=== PATIENT | female | born 2000 | race Caucasian/White ===

== ENCOUNTER 2022-06-29 10:12 | Emergency (ER) | payer MEDICAID, SELFPAY ==
[2022-06-29 10:29] VITALS: BP 111/72; PULSE 76; RESP 16; TEMP 35.9; O2SAT 99; BMI 28.5
[2022-06-29 11:16] VITALS: BP 100/73; PULSE 76; RESP 18; O2SAT 99
--- NOTE | 2022-06-29 11:16 | CRLHL7_ITS ---
For Patients: As a result of the Century Cures Act, medical imaging exams and procedure reports are released immediately into your electronic medical record. You may view this report before your referring provider. If you have questions, please contact your health care provider. INDICATION: First trimester bleeding. TECHNIQUE: Ultrasound OB pelvis transvaginal. Real-time snyder-scale imaging of the pelvis was performed. COMPARISON: None. FINDINGS: There is an intrauterine gestational sac with a mean sac diameter of 7 mm which corresponds to a 5 week 2 day gestational age. Normal appearing yolk sac. Fetus is not yet visualized. There is no sign of perigestational hemorrhage. The ovaries are of normal size. There are no suspicious fluid collections noted in the cul-de-sac. IMPRESSION: Early intrauterine measuring less than 6 weeks. It is too early to determine viability. No hemorrhage or other abnormality evident. Dictated by Tom Ramos MD @ 06/29/2022 1:13:59 PM (Electronically Signed)
--- NOTE | 2022-06-29 11:17 | ED.GENADULT ---
HPI - General Adult General Chief complaint: OB/Uterine Contractions Stated complaint: 6 weeks , complications Time Seen by Provider: 06/29/22 11:05 History of Present Illness HPI narrative: Patient is a 22-year-old female who through an senior power plant operator reports that she had a in the past, this is her next , therefore a G1 para 0. She is about 6 weeks bites v-shaped estimated gestational age. Does not know her blood type. Does not speak Malay. Through an senior power plant operator reports she has had heavy vaginal bleeding over the last 24 hours, some lower abdominal cramping. No passage of material. No lightheadedness or dizziness. Related Data Home Medications Medication Instructions Recorded Confirmed No Known Home Medications 06/29/22 06/29/22 Allergies Allergy/AdvReac Type Severity Reaction Status Date / Time No Known Drug Allergies Allergy Verified 06/29/22 10:44 Review of Systems Status of ROS: Reports: 6 or more systems reviewed and unremarkable except as noted in History and below PFSH PFSH Social History Smoking Status: Never smoker Do you use any of these nicotine containing products: None Second hand tobacco smoke exposure: No How often do you have a drink containing alcohol: never How often do you have six or more drinks on one occasion: Never AUDIT-C Alcohol total score: 0 Non-prescribed substance use: denies use service: No Exam Narrative: Exam Narrative: Objective: Patient's vital signs unremarkable she is alert, noncyanotic Talks in even unlabored sentences HEENT is unremarkable no pale conjunctiva neck supple pulse regular abdomen benign soft bimanual exam shows cervix to be high and still closed, very difficult to reach the tip of the cervix, no marked pelvic pain Extremities are no edema Neurologic nonfocal Const: Vital Signs, click to edit/add: Vital Signs - 24 hr 06/29/22 10:29 06/29/22 11:16 06/29/22 12:13 Temperature 96.7 F L Pulse Rate [Right Pulse Oximeter] 76 76 64 Respiratory Rate 16 18 18 Blood Pressure [Ri ght Upper Arm] 111/72 100/73 103/72 Pulse Oximetry 99 99 99 Oxygen Delivery Me thod Room Air Room Air Room Air Course Vital Signs Vital signs: Initial Vital Signs Temperature 96.7 F L 06/29/22 10:29 Temperature Source Temporal Artery Scan 06/29/22 10:29 Pulse Rate 76 06/29/22 10:29 Respiratory Rate 16 06/29/22 10:29 Blood Pressure 111/72 06/29/22 10:29 Blood Pressure Mean 85 06/29/22 10:29 Blood Pressure Position Sitting 06/29/22 10:29 Pulse Oximetry 99 06/29/22 10:29 Oxygen Delivery Method 06/29/22 10:29 Vital Signs Temperature 96.7 F L 06/29/22 10:29 Pulse Rate 76 06/29/22 10:29 Respiratory Rate 16 06/29/22 10:29 Blood Pressure 111/72 06/29/22 10:29 Pulse Oximetry 99 06/29/22 10:29 Oxygen Delivery Method 06/29/22 10:29 Temperature 96.7 F L 06/29/22 10:29 Pulse Rate 64 06/29/22 12:13 Respiratory Rate 18 06/29/22 12:13 Blood Pressure 103/72 06/29/22 12:13 Pulse Oximetry 99 06/29/22 12:13 Oxygen Delivery Method 06/29/22 12:13 Medical Decision Making MDM Narrative Medical decision making narrative: Patient will get an ultrasound of the pelvis, will get a blood type, quantitative hCG, laboratory studies. Threatened miscarriage would be likely diagnosis given her cramping and bleeding. Discussed with OB as needed. Please see addendum dictation. Addendum: Patient has an intrauterine gestational sac, no free fluid in the pelvis. She has a low HCG. I suspect given this she is likely having a miscarriage, but at this point she needs a repeat hCG in 48 hours, the patient has a o-positive blood type. Will make an arrangement for to see OB in the next couple of days. Lab Data Labs: Lab Results 06/29/22 06/29/22 06/29/22 Range/Units 11:47 11:47 11:47 WBC 8.54 (4.50-11.00) K/uL RBC 4.41 (4.00-5.20) m/uL Hgb 13.0 (12.0-16.0) gm/dL Hct 38.8 (33.0-51.0) % MCV 88 (80-100) fL MCH 30 (26-34) pg MCHC 34 (32-36) gm/dL RDW Coeff of Gertrude 12.9 (11.5-15.5) % Plt Count 264 (140-440) K/uL Neut % (Auto) 65.1 (42.0-72.0) % Lymph % (Auto) 21.1 (20-44) % [place] % (Auto) 10.7 (0.0-11.0) % Eos % (Auto) 2.7 (0.0-7.0) % Baso % (Auto) 0.2 (0.0-3.0) % Neut # (Auto) 5.56 (1.7-7.0) K/uL Lymph # (Auto) 1.80 (0.90-2.90) K/uL [place] # (Auto) 0.90 (0.00-0.90) K/UL Eos # (Auto) 0.23 (0.00-0.50) K/uL Baso # (Auto) 0.02 (0.00-0.30) K/uL Sodium 138 (135-149) mmol/L Potassium 4.2 (3.6-5.1) mmol/L Chloride 111 (96-114) mmol/L Carbon Dioxide 23 (20-32) mmol/L BUN 7 (5-24) mg/dL Creatinine 0.4 L (0.5-1.5) mg/dL Estimated Creat Clear 171.52 Estimated GFR 142 ml/min Glucose 89 (60-115) mg/dL Calcium 8.3 L (8.4-10.6) mg/dL HCG, Quant mIU/mL Blood Type O Positive 06/29/22 Range/Units 11:47 WBC (4.50-11.00) K/uL RBC (4.00-5.20) m/uL Hgb (12.0-16.0) gm/dL Hct (33.0-51.0) % MCV (80-100) fL MCH (26-34) pg MCHC (32-36) gm/dL RDW Coeff of Gertrude (11.5-15.5) % Plt Count (140-440) K/uL Neut % (Auto) (42.0-72.0) % Lymph % (Auto) (20-44) % [place] % (Auto) (0.0-11.0) % Eos % (Auto) (0.0-7.0) % Baso % (Auto) (0.0-3.0) % Neut # (Auto) (1.7-7.0) K/uL Lymph # (Auto) (0.90-2.90) K/uL [place] # (Auto) (0.00-0.90) K/UL Eos # (Auto) (0.00-0.50) K/uL Baso # (Auto) (0.00-0.30) K/uL Sodium (135-149) mmol/L Potassium (3.6-5.1) mmol/L Chloride (96-114) mmol/L Carbon Dioxide (20-32) mmol/L BUN (5-24) mg/dL Creatinine (0.5-1.5) mg/dL Estimated Creat Clear Estimated GFR ml/min Glucose (60-115) mg/dL Calcium (8.4-10.6) mg/dL HCG, Quant 479.09 mIU/mL Blood Type Discharge Plan Discharge Clinical Impression: , threatened Patient Disposition: Home w/ Parent or Adult Condition: Stable Additional Instructions: Rest, light activity, no driving, follow-up in clinic for repeat blood test in 48 hours, return sooner lightheadedness dizziness shortness of breath. Need to repeat the blood test to confirm if it is a miscarriage or not. Blood type is O-positive Follow-Up Appointment: July 01 @ 8:30am [facility] Activity Level: Light activity Discharge Diet: Regular Prescriptions: No Action No Known Home Medications Stand Alone Forms: [facility] Info Instructions
[2022-06-29 11:56] LABS: Basophils Absolute Auto 0.02 K/uL (0.00-0.30); Basophils Percent Auto 0.2 % (0.0-3.0); Eosinophils Absolute Auto 0.23 K/uL (0.00-0.50); Eosinophils Percent Auto 2.7 % (0.0-7.0); Hematocrit 38.8 % (33.0-51.0); Immature Granulocytes Abs Auto 0.02 K/uL (0.00-0.30); Immature Granulocytes Pct Auto 0.2 %; Lymphocytes Percent Auto 21.1 % (20-44); Mean Corpuscular HGB Conc 34 gm/dL (32-36); Mean Corpuscular Hemoglobin 30 pg (26-34); Mean Corpuscular Volume 88 fL (80-100); Monocytes Percent Auto 10.7 % (0.0-11.0); Neutrophils Absolute Auto 5.56 K/uL (1.7-7.0); Neutrophils Percent Auto 65.1 % (42.0-72.0); Platelet Count* 264 K/uL (140-440); RDW Coefficient of Variation % 12.9 % (11.5-15.5); Red Blood Count 4.41 m/uL (4.00-5.20); White Blood Count* 8.54 K/uL (4.50-11.00)
[2022-06-29 12:05] LABS: Slide Review Reflex No
[2022-06-29 12:13] VITALS: BP 103/72; PULSE 64; RESP 18; O2SAT 99
[2022-06-29 12:16] LABS: Chloride* 111 mmol/L (96-114); Sodium* 138 mmol/L (135-149)
[2022-06-29 12:17] LABS: Potassium* 4.2 mmol/L (3.6-5.1)
[2022-06-29 12:19] LABS: Creatinine* 0.4 mg/dL (0.5-1.5); Est. Creatinine Clearance* 171.52; Estimated Glomerular Filt Rate 142 ml/min
[2022-06-29 12:20] LABS: Blood Urea Nitrogen* 7 mg/dL (5-24); Calcium* 8.3 mg/dL (8.4-10.6); Carbon Dioxide* 23 mmol/L (20-32); Glucose* 89 mg/dL (60-115)
[2022-06-29 12:49] LABS: HCG Quantitative* 479.09 mIU/mL
--- NOTE | 2022-06-29 13:35 | ED.NURSE ---
interpreter translator was used with interactions and was also used with dr garcia.
== END 2022-06-29 13:16 | disposition home or self-care (01) ==
PROVIDERS: Emergency Provider Family Medicine
DX: O20.0 Threatened abortion (principal); Z3A.01 Less than 8 weeks gestation of pregnancy
CPT/HCPCS: 36415; 76817; 80048; 84702; 85025; 86900; 86901; 99283; 99284

== ENCOUNTER 2022-07-01 08:51 | Outpatient (CLI) | payer MEDICAID, SELFPAY ==
[2022-07-01 10:12] LABS: HCG Quantitative* 70.86 mIU/mL
== END 2022-07-01 08:52 | disposition home or self-care (01) ==
LOC: NFLDREF 08:51
PROVIDERS: Visit Provider Obstetrics & Gynecology
DX: O20.0 Threatened abortion (principal)
CPT/HCPCS: 84702

== ENCOUNTER 2022-12-31 07:38 | Emergency (ER) | payer BC, SELFPAY ==
[2022-12-31 07:48] VITALS: BP 115/79; PULSE 72; RESP 16; TEMP 35.9; O2SAT 98
--- NOTE | 2022-12-31 08:04 | CRLHL7_ITS ---
For Patients: As a result of the Century Cures Act, medical imaging exams and procedure reports are released immediately into your electronic medical record. You may view this report before your referring provider. If you have questions, please contact your health care provider. INDICATION: with bleeding. TECHNIQUE: Ultrasound OB pelvis transabdominal and transvaginal. Real-time snyder-scale imaging of the pelvis was performed. COMPARISON: None. FINDINGS: No sign of intrauterine or ectopic . Endometrium is empty and measures 10 mm in thickness. No signs of hemorrhage. The ovaries are of normal size. There are no suspicious fluid collections noted in the cul-de-sac. IMPRESSION: No signs of intrauterine or ectopic viable . Dictated by Tom Ramos MD @ 12/31/2022 9:21:33 AM (Electronically Signed)
--- NOTE | 2022-12-31 08:06 | ED_ITS ---
HPI - General Chief complaint: Unspecified Complaint, Adult Stated complaint: 6weeks with spotting and cramps Time Seen by Provider: 12/31/22 07:58 History of Present Illness HPI Narrative: Patient is a 22-year-old 3 para 1 woman who presents with lower abdomin al cramping and a very small amount bright red spotting from her vagina. She has had 2 losses in the past. She states her last period was approximately 7 weeks ago. She has had no fevers no chills no night sweats no cough no shortness of breath no other abdominal pain. She has had no recent injuries and is not taking any vitamins to my knowledge. No other complaints or concerns. Pain is mild. Related Data Home Medications Medication Instructions Recorded Confirmed No Known Home Medications 06/29/22 07/01/22 Allergies Allergy/AdvReac Type Severity Reaction Status Date / Time No Known Drug Allergies Allergy Verified 12/31/22 07:53 Review of Systems Status of ROS: Reports: 10 or more systems reviewed and unremarkable except as noted in History and below PFSH PFSH Social History Smoking Status: Never smoker Do you use any of these nicotine containing products: None Second hand tobacco smoke exposure: No How often do you have a drink containing alcohol: never How often do you have six or more drinks on one occasion: Never AUDIT-C Alcohol total score: 0 Non-prescribed substance use: denies use Exam Narrative: Exam Narrative: EXAM GENERAL: Patient appears comfortable and well. EYES: No scleral icterus. LYMPH: No supraclavicular or cervical lymphadenopathy. SKIN: Visible skin seen during exam normal or with benign process only. EXT: No dependent lower extremity pedal edema. HEART: Regular rate and rhythm with no murmurs, rubs, or gallops. LUNGS: Clear to auscultation bilaterally with no crackles or wheezes. ABD: Soft, non tender, non distended. PSYCH: Good eye contact, speech is not pressured. Const: Vital Signs, click to edit/add: Vital Signs - 24 hr 12/31/22 07:48 Temperature 96.6 F L Pulse Rate [Left P ulse Oximeter] 72 Respiratory Rate 16 Blood Pressure [Ri ght Upper Arm] 115/79 Pulse Oximetry 98 Oxygen Delivery Me thod Room Air Course Course Hospital Course: Patient seen and examined. Pelvic ultrasound CBC CMP quantitative hCG ABO Rh typing UA pending. Vital Signs Vital signs: Initial Vital Signs Temperature 96.6 F L 12/31/22 07:48 Temperature Source Temporal Artery Scan 12/31/22 07:48 Pulse Rate 72 12/31/22 07:48 Respiratory Rate 16 12/31/22 07:48 Blood Pressure 115/79 12/31/22 07:48 Blood Pressure Mean 91 12/31/22 07:48 Blood Pressure Position Sitting 12/31/22 07:48 Pulse Oximetry 98 12/31/22 07:48 Oxygen Delivery Method Room Air 12/31/22 07:48 Vital Signs Temperature 96.6 F L 12/31/22 07:48 Pulse Rate 72 12/31/22 07:48 Respiratory Rate 16 12/31/22 07:48 Blood Pressure 115/79 12/31/22 07:48 Pulse Oximetry 98 12/31/22 07:48 Oxygen Delivery Method Room Air 12/31/22 07:48 Temperature 96.6 F L 12/31/22 07:48 Pulse Rate 72 12/31/22 07:48 Respiratory Rate 16 12/31/22 07:48 Blood Pressure 115/79 12/31/22 07:48 Pulse Oximetry 98 12/31/22 07:48 Oxygen Delivery Method Room Air 12/31/22 07:48 MDM - OB/Uterine Contractions MDM Narrative Medical decision making narrative: Patient is a 22-year-old woman who comes in today believing that she is . She has a small amount of vaginal spotting as well as some mild crampy lower abdominal pain. Quantitative hCG is negative urine does show small amount of blood but no signs of infection lab work including CBC electrolytes are normal. Pelvic ultrasound shows no evidence of intra or extra uterine . This time reassurance is offered I do think she is having delayed. She has not had a period for about 7 weeks. She is informed of her results and will continue her current lifestyle management follow-up with her primary physician as needed. Differential Diagnosis Differential diagnosis: Likely premature labor, pre-eclampsia and eclampsia Lab Data Labs: Lab Results 12/31/22 12/31/22 12/31/22 Range/Units 08:10 08:28 08:55 WBC 7.69 (4.50-11.00) K/uL RBC 4.91 (4.00-5.20) m/uL Hgb 14.0 (12.0-16.0) gm/dL Hct 41.7 (33.0-51.0) % MCV 85 (80-100) fL MCH 29 (26-34) pg MCHC 34 (32-36) gm/dL RDW Coeff of Gertrude 12.8 (11.5-15.5) % Plt Count 320 (140-440) K/uL Neut % (Auto) 64.6 (42.0-72.0) % Lymph % (Auto) 26.8 (20-44) % [place] % (Auto) 6.8 (0.0-11.0) % Eos % (Auto) 1.3 (0.0-7.0) % Baso % (Auto) 0.4 (0.0-3.0) % Neut # (Auto) 4.97 (1.7-7.0) K/uL Lymph # (Auto) 2.06 (0.90-2.90) K/uL [place] # (Auto) 0.50 (0.00-0.90) K/UL Eos # (Auto) 0.10 (0.00-0.50) K/uL Baso # (Auto) 0.03 (0.00-0.30) K/uL Abs Immat Gran (auto) 0.01 (0.00-0.30) K/uL Imm/Tot Granulo (auto) 0.1 % Sodium 138 (135-149) mmol/L Potassium 3.9 (3.6-5.1) mmol/L Chloride 105 (96-114) mmol/L Carbon Dioxide 25 (20-32) mmol/L BUN 9 (5-24) mg/dL Creatinine 0.5 (0.5-1.5) mg/dL Estimated GFR 134 ml/min Glucose 89 (60-115) mg/dL Calcium 8.6 (8.4-10.6) mg/dL Total Bilirubin 0.4 (0.1-1.5) mg/dL AST 21 (12-35) U/L ALT 24 (4-35) U/L Alkaline Phosphatase 82 (40-150) U/L Total Protein 6.8 (6.0-8.3) g/dL Albumin 4.1 (3.3-5.0) g/dL HCG, Quant < 2.39 mIU/mL Urine Color Light yellow (Yellow) Urine Appearance Clear (Clear) Urine pH 6.0 (5.0-8.5) Ur Specific [place] 1.010 (1.000-1.030) Urine Protein Negative (Negative) Urine Glucose (UA) Negative (Negative) Urine Ketones Negative (Negative) Urine Blood Trace-intact A (Negative) Urine Nitrite Negative (Negative) Urine Bilirubin Negative (Negative) Urine Urobilinogen 0.2 (0.2-1.0) Ur Leukocyte Esterase Negative (Negative) Urine RBC 0-2 (0-2) Urine WBC 0-2 (0-5) Ur Squamous Epith Cells Few (None-Few) Urine Bacteria None (None) Blood Type O Positive Discharge Plan Discharge Clinical Impression: Abnormal menses Patient Disposition: Home, Self-Care Condition: Stable Instructions: Abnormal (Dysfunctional) Uterine Bleeding (ED) Additional Instructions: Continue current management Follow-up with your doctor as needed. Activity Level: No Restrictions Discharge Diet: Regular Prescriptions: No Action No Known Home Medications Follow Up/Referrals: Melani Dubon MD [Primary Care Provider] - Stand Alone Forms: [employer] Info Instructions
[2022-12-31 08:20] LABS: Appearance Urine Clear (Clear); Bilirubin Urine Negative (Negative); Blood Urine Trace-intact (Negative); Color Urine Light yellow (Yellow); Glucose Urine Negative (Negative); Ketones Urine Negative (Negative); Leukocyte Esterase Urine Negative (Negative); Nitrite Urine Negative (Negative); Protein Urine Negative (Negative); Urobilinogen Urine 0.2 (0.2-1.0)
[2022-12-31 08:35] LABS: RBC Urine 0-2 (0-2); Squamous Epithelial Cell Urine Few (None-Few); WBC Urine 0-2 (0-5)
[2022-12-31 08:53] LABS: Albumin* 4.1 g/dL (3.3-5.0); Chloride* 105 mmol/L (96-114); Sodium* 138 mmol/L (135-149)
[2022-12-31 08:54] LABS: Potassium* 3.9 mmol/L (3.6-5.1)
[2022-12-31 08:56] LABS: Alanine Aminotransferase* 24 U/L (4-35); Alkaline Phosphatase* 82 U/L (40-150); Aspartate Amino Transferase* 21 U/L (12-35); Bilirubin Total* 0.4 mg/dL (0.1-1.5); Blood Urea Nitrogen* 9 mg/dL (5-24); Carbon Dioxide* 25 mmol/L (20-32); Creatinine* 0.5 mg/dL (0.5-1.5); Estimated Glomerular Filt Rate 134 ml/min; Glucose* 89 mg/dL (60-115); Total Protein* 6.8 g/dL (6.0-8.3)
[2022-12-31 08:57] LABS: Calcium* 8.6 mg/dL (8.4-10.6)
[2022-12-31 09:02] LABS: Basophils Absolute Auto 0.03 K/uL (0.00-0.30); Basophils Percent Auto 0.4 % (0.0-3.0); Eosinophils Percent Auto 1.3 % (0.0-7.0); Hematocrit 41.7 % (33.0-51.0); Immature Granulocytes Abs Auto 0.01 K/uL (0.00-0.30); Immature Granulocytes Pct Auto 0.1 %; Lymphocytes Absolute Auto 2.06 K/uL (0.90-2.90); Lymphocytes Percent Auto 26.8 % (20-44); Mean Corpuscular HGB Conc 34 gm/dL (32-36); Mean Corpuscular Hemoglobin 29 pg (26-34); Mean Corpuscular Volume 85 fL (80-100); Monocytes Percent Auto 6.8 % (0.0-11.0); Neutrophils Absolute Auto 4.97 K/uL (1.7-7.0); Neutrophils Percent Auto 64.6 % (42.0-72.0); Platelet Count* 320 K/uL (140-440); RDW Coefficient of Variation % 12.8 % (11.5-15.5); Red Blood Count 4.91 m/uL (4.00-5.20); White Blood Count* 7.69 K/uL (4.50-11.00)
[2022-12-31 09:04] LABS: Slide Review Reflex No
[2022-12-31 09:14] LABS: HCG Quantitative* < 2.39 mIU/mL
[2022-12-31 10:20] VITALS: BP 115/79; PULSE 72; RESP 16; TEMP 35.9
== END 2022-12-31 10:20 | disposition home or self-care (01) ==
PROVIDERS: Emergency Provider Internal Medicine; PCP Obstetrics & Gynecology
DX: N93.9 Abnormal uterine and vaginal bleeding, unspecified (principal)
CPT/HCPCS: 36415; 76817; 80053; 81003; 81015; 84702; 85025; 86900; 86901; 99283; 99284; T1013

== ENCOUNTER 2023-02-22 09:23 | Outpatient (CLI) | payer BC, SELFPAY ==
--- NOTE | 2023-02-22 09:15 | CRLHL7_ITS ---
For Patients: As a result of the Century Cures Act, medical imaging exams and procedure reports are released immediately into your electronic medical record. You may view this report before your referring provider. If you have questions, please contact your health care provider. INDICATION: First trimester scan, establish dates. COMPARISON: None. TECHNIQUE: Real-time snyder-scale imaging of the pelvis was performed. FINDINGS: An intrauterine gestational sac is present with a mean sac diameter of 9.4 millimeters, 5 weeks 3 days. Yolk sac is present measuring 2.8 millimeters. No pole. Subchorionic hemorrhage is present measuring 2.0 x 0.5 x 1.5 cm. Left ovarian corpus luteal cyst measuring 2.3 x 1.9 x 2.2 cm. Right ovary unremarkable. No pelvic free fluid. IMPRESSION: Intrauterine gestational sac containing a yolk sac without pole. Follow-up in 11-14 days recommended. Dictated by Manish More MD @ 02/22/2023 10:13:06 AM (Electronically Signed)
== END 2023-02-22 09:24 | disposition home or self-care (01) ==
LOC: US 09:25
PROVIDERS: Visit Provider Advanced Practice Midwife
DX: Z34.91 Encounter for supervision of normal pregnancy, unspecified, first trimester (principal); O20.9 Hemorrhage in early pregnancy, unspecified; O34.81 Maternal care for other abnormalities of pelvic organs, first trimester; N83.12 Corpus luteum cyst of left ovary; Z3A.01 Less than 8 weeks gestation of pregnancy
CPT/HCPCS: 76817; T1013

== ENCOUNTER 2023-03-08 12:55 | Outpatient (CLI) | payer BC, SELFPAY ==
--- NOTE | 2023-03-08 13:00 | CRLHL7_ITS ---
For Patients: As a result of the Century Cures Act, medical imaging exams and procedure reports are released immediately into your electronic medical record. You may view this report before your referring provider. If you have questions, please contact your health care provider. INDICATION: Follow up viability COMPARISON: None. TECHNIQUE: Real-time snyder-scale imaging of the pelvis was performed. FINDINGS: Sonographic imaging demonstrates a single living intrauterine gestation. The embryo demonstrates a regular cardiac rate measuring 152 beats per minute. The embryo`s crown-rump length measurement of 1.4 cm corresponds to a gestational age of 7 weeks 5 days with a sonographic due date of 10/20/2023. The yolk sac measures 5.2 x 2.1 x 4.3 cm. There are no gross abnormalities noted within the embryo at this early state of development. The gestational sac has a normal appearance. There is no evidence of a perigestational hemorrhage. The amount of fluid within the sac appears appropriate for gestational age. The cervix is closed. The myometrium appears normal. The ovaries are of normal size. Corpus luteal cyst left ovary. There are no suspicious fluid collections noted in the cul-de-sac. IMPRESSION: Single living intrauterine with sonographic gestational age 7 weeks 5 days and sonographic due date 10/20/2023. Upper limits normal yolk sac size with slight irregularity of uncertain significance. Dictated by Manish More MD @ 03/09/2023 10:44:01 AM (Electronically Signed)
== END 2023-03-08 12:56 | disposition home or self-care (01) ==
LOC: US 12:56
PROVIDERS: Visit Provider Advanced Practice Midwife
DX: Z3A.01 Less than 8 weeks gestation of pregnancy (principal); Z34.91 Encounter for supervision of normal pregnancy, unspecified, first trimester
CPT/HCPCS: 76817; 86592; 86703; 86704; 86706; 86762; 86787; 86803; 86850; 86900; 86901; 87086; 87340; 87491; 87591; T1013

== ENCOUNTER 2023-04-08 09:23 | Outpatient (CLI) | payer BC, SELFPAY | END 2023-04-08 09:24 | disposition home or self-care (01) | LOC: NFLDREF 09:24 | PROVIDERS: Visit Provider Advanced Practice Midwife | DX: O21.1 Hyperemesis gravidarum with metabolic disturbance (principal); Z3A.12 12 weeks gestation of pregnancy | CPT/HCPCS: 80048 ==

== ENCOUNTER 2023-04-15 11:41 | Outpatient (CLI) | payer BC, SELFPAY | END 2023-04-15 11:42 | disposition home or self-care (01) | PROVIDERS: Visit Provider Advanced Practice Midwife | DX: Z34.91 Encounter for supervision of normal pregnancy, unspecified, first trimester (principal); Z3A.13 13 weeks gestation of pregnancy | CPT/HCPCS: 84443; 86147; T1013 ==

== ENCOUNTER 2023-05-06 08:04 | Outpatient (CLI) | payer BC, SELFPAY ==
--- NOTE | 2023-05-06 08:15 | CRLHL7_ITS ---
For Patients: As a result of the Century Cures Act, medical imaging exams and procedure reports are released immediately into your electronic medical record. You may view this report before your referring provider. If you have questions, please contact your health care provider. INDICATION: growth check. History of miscarriage. TECHNIQUE: Ultrasound OB pelvis transabdominal. Real-time snyder-scale imaging of the fetus was performed as well as color Doppler and spectral Doppler analysis of the umbilical artery. COMPARISON: None. FINDINGS: Intrauterine gestation: Present. cardiac activity: 137 BPM. Presentation: Cephalic. Placenta: Anterior. Amniotic fluid volume: Normal. Cervix: 4.2 cm. The following biometric measurements were obtained: Biparietal diameter: 68th percentile. Head circumference: 62nd percentile. Abdominal circumference: 80th percentile. Femur length: 28th percentile. weight: 156 grams, 60th percentile. Estimated ultrasound age: 16 weeks 3 days. Estimated due date: October 18, 2023. IMPRESSION.: Viable intrauterine . No abnormalities seen. Normal interval growth has been demonstrated. Dictated by Tom Ramos MD @ 05/07/2023 10:54:31 AM (Electronically Signed)
== END 2023-05-06 08:05 | disposition home or self-care (01) ==
LOC: US 08:05
PROVIDERS: Visit Provider Advanced Practice Midwife
DX: Z34.92 Encounter for supervision of normal pregnancy, unspecified, second trimester (principal); Z3A.16 16 weeks gestation of pregnancy
CPT/HCPCS: 76805; 76815

== ENCOUNTER 2023-07-06 12:46 | Outpatient (CLI) | payer MEDICAID, SELFPAY ==
--- OUTSIDE RECORDS SUMMARY | 2023-07-06 12:48 | XMS_ITS | Clinical Summary ---
Author Name Unknown Organization [facility] Address [place], [place] [address] Care Team Providers Care Radiopharmacist Name Role Phone Pcp, No Primary Care Provider Celi Zapata CN Unavailable [phone] Allergies No known active allergies Medications Medication Sig Dispensed Refills Start Date End Date Status multivitamin () 27 mg iron- 800 mcg folicIndications:Encoun ter for supervision of other normal in first trimester Take 1 Tablet by mouth once daily with a meal. 90 Tablet 3 06/26/2022 Active ondansetron (ZOFRAN ODT) 4 mg disintegrating tabletIndications:Hyper emesis gravidarum Place 1 Tablet (4 mg) on the tongue every 8 hours if needed for Nausea/Vomiting . 30 Tablet 0 06/26/2022 Active metoclopramide HCl (REGLAN) 10 mg tablet 0 04/08/2023 Act gely Active Problems Problem Noted Date Diagnosed Date History of loss in prior , currently 04/12/2023 Round ligament pain 04/12/2023 [facility] Supervision of high-risk 3 Overview: Gretta Von : 2000 [facility] ULTRASOUND/TESTING PATIENT MPP CONSULT ON 04/12/23 Support person name: Welder Setter Electron Beam Machine: Yes: Slovenian ULTRASOUND TYPE: L2 on 06/03/23 REASON FOR VISIT: Hx IUFD ~20w NEXT VISIT ALERTS: NURSING VISIT ALERT: Create and link episode at day of visit. Document in Dating section. GA 12w5d Final FIOAN by Early Ultrasound LMP Date: Patient's last menstrual period was 08/10/2022. FIONA: 10/06/23 Early US: Date: 03/08/23 GA: 7w5d FIONA: 10/20/23 PrePregnancy Weight: 158 lbs Height: 5'1 BMI: 29 PLANS & FUTURE APPOINTMENTS: ULTRASOUND/GROWTH PLAN: - Through: - Growth: Next TESTING PLAN: - Testing: Through DELIVERY PLAN: - Scheduled delivery: - Preferred delivery location: PRIMARY DIAGNOSIS: 23 y.o. Estimated Date of Delivery: 10/20/23. MATERNAL 2016 19-20w IUFD (in [facility], no records available) 2017 40w (bedrest, watched for weak uterus, in [facility]) PREVIOUS ULTRASOUNDS: 06/03/23 L2 03/08/23 7w5d ECHO: REFERRING PHYSICIAN/PHONE/LAST UPDATE: Celi Be [facility] [phone] Primary MD approves scheduling of recommended ultrasounds/testing: Yes SPECIALISTS/CONSULTS: Include: Specialty MD Clinic Name Phone# [place] and ADDED TO PATIENT CARE TEAM Yes GENETICS: Declines/Not Done CARE COORDINATION: PERTINENT LABS: Labs reviewed? Yes Normal? Not all labs available Blood type: O Rh Positive Antibody screen: Negative Non-[facility] labs need to be entered in [facility]? Yes PERTINENT MEDS: PROCEDURES: IF FGR <10% or EFW <2000 grams: Add FGRPCOM PLAN OF CARE: Original and updated POC 06/12/22 [place] History of loss at 20 weeks - No records available, labs and pathology unavailable, but maternal report of events is consistent with placental abruption (risk of recurrence 5-10%) - Consider antiphospholipid antibody testing, TSH level in [place] - Recommend detailed anatomy scan at 19 weeks with [facility] - Growth scans q 3- 4 weeks with local provider - Recommend weekly testing starting at 28 weeks (BPP or NST ok) - this can be done with local provider Round ligament pain - Reviewed that her symptoms are consistent with this diagnosis and that it is not dangerous but uncomfortable. Consider yoga, initiating movements slowly, support belt Possible anxiety attacks - Waking up from sleep gasping - Normal vitals today - Recommend ekg or holter monitor in [place] - Also told her to try stopping the phenergan at night in case she is having a poor reaction - Discussed history and that this could be associated with maternal stress. Nausea + vomiting - Recommended increasing zofran to 4mg q 6 hours to see if helpful Umbilical hernia 07/10/2016 08/12/2022 Estimated Date of Delivery Comme nts Yes 10/20/2023 Based on Ultraso und Resolved Problems Problem Noted Date Diagnosed Date Resolved Date Depo-Provera contraceptive status 06/26/2019 06/26/2022 Overview: First injection 06/26/2019 Encounters Date Type Department Care Team Description 06/03/2023 12:58 PM MOTEL KEEPER - 06/03/2023 11:59 PM MOTEL KEEPER Hospital Encounter [facility] [address] [place] [phone] Celi Be CNM Supervision of high risk in second trimester (Primary Dx); High risk , antepartum 06/03/2023 Travel 04/12/2023 1:45 PM MOTEL KEEPER - 04/12/2023 11:59 PM MOTEL KEEPER Hospital Encounter [facility] [address] [place] [id number] Supervision of high risk in first trimester (Primary Dx); History of loss in prior , currently in first trimester; Round ligament pain 04/12/2023 Travel from Last 3 Months Immunizations Name Administration Dates Next Due COVID-19 vaccine (Real Intent-Bio NTech 30mcg/0.3mL) 12YO+ BIVALENT PF, MDV 02/25/2022 COVID-19 vaccine (Real Intent-Bio NTech 30mcg/0.3mL) 12YO+ YUSRA-SUCROSE PF, MDV 07/02/2021 COVID-19 vaccine (Real Intent-BioNTech 30mcg/0.3mL) P F, MDV 06/11/2021 HPV 9 (Gardasil 9) 02/25/2022,12/14/2019 Influenza, IIV4 02/25/2022 Tdap 12/14/2019 Family History Medical History Relation Name Comments Heart attack Father 54 Relation Name Status Comments Father Social History Tobacco Use Types Packs/Day Years Used Date Smoking Tobacco: Never Smokeless Tobacco: Never Tobacco Cessation:Counseling Given: Yes Alcohol Use Standard Drinks/Week Comments Not Currently 0 (1 standard drink = 0.6 oz pur e alcohol) PHQ-2 Answer Date Recorded PHQ-2 TOTAL SCORE 0 02/25/2022 Social Connections Answer Date Recorded Frequency of Communication with Friends and Fami ly Not on file 02/25/2022 Financial Resource Strain Answer Date R ecorded Difficulty of Paying Living Expenses Not on file 06/07/2021 Difficulty of Paying Living Expenses Not on file 06/07/2021 Estimated Date of Delivery Comme nts Yes 10/20/2023 Based on Ultraso und Sex and Gender Information Value Date Recorded Sex Assigned at Not on file Gender Identity Not on file Sexual Orientation Not on file Obstetrics History Para Term AB IAB SAB Ectopic Multiple Livin g Live Births 4 1 1 2 2 1 1 Date Outcome GA Total Labor Labor/2nd/3rd Weight Sex Delivery Anes PTL Magda A1 A5 Name Cl in 2015 SAB 20w 0d Feta l Myrna se Living Status Comments:IUFD, bleeding entire Delivery Location:[facility] 09/17 Term 39w 5d 2.49 kg (5 lb 8 oz) M Vag Lela ng Pastor Complications:None Delivery Location:[facility] 06/29 SAB 6w0 d SPONTANEO US Current Summary Episode Dates Number of Fetuses Estimated Date of Delivery 04/12/2023 - Present (07/06/2023) 10/20/2023 (set by Elizabeth Painter, RN on 04/12/2023 based on Ultrasound on 03/08/2023) Dating Summary Based On FIONA GA Diff Last Menstrual Period on 08/10/2022 05/17/2023 +22w2d Ultrasound on 03/08/2023 10/20/2023 Working GA:7w5d Vitals Pregravid Weight Height TWG (As of 07/06/2023) Pregrav id BMI 1.524 m (5') Date GA Fund Present FHR Mvmt BP Weight Edema Alb Glu Ket Dil/ Eff/Sta 3 12w5d Inpatient data not displayed here. See encounter summary. 3 20w1d Inpatient data not displayed here. See encounter summary. Notes Progress Notes - Hospital En counter - 06/03/2023 - GA:20w1d 06/03/2023 - 20w1d - Jennifer Carson MD Referred By: CELI TOMASA [facility] Indications Code 20 weeks gestation of Z3A.20 2015 --20wk IUFD (in [facility], no records)- maternal report sounds like placental abruption 2018- (bedrest, watched for weak uterus, in [facility]) Declined serum screening Detailed US IMPRESSION: Intrauterine at 20w 1d. presentation is Cephalic. EFW 349 grams, percentile: 56. Growth parameters and estimated weight are appropriate for gestational age. No major structural anomalies identified. No markers for aneuploidy identified. Normal Deepest Vertical Pocket of amniotic fluid: 4.54 cm. Placental location: Anterior. There is no evidence of placenta previa. The transabdominal cervical length is 3.3 cm. RECOMMENDATIONS: - Return to primary provider for continued care. - No alterations in the delivery plan are necessary. - Growth scans q 3- 4 weeks with local provider - Recommend weekly testing starting at 28 weeks (BPP or NST ok) - this can be done with local provider - Ideally would deliver at 39 weeks but can deliver as early as 37 weeks if needed for maternal anxiety given history of stillbirth COMMENT: Present findings are reassuring. The patient was seen by the Perinatologist today. The previous ultrasound and the records were reviewed. The results of today's ultrasound were communicated to the patient. New government regulations related to the Century Cures act require that this note be released to the patient immediately, sometimes before the referring provider has been contacted. A portion of the information was presented verbally to the patient. The remainder is submitted as background for the referring provider, to be discussed as needed. Services Provided: Procedures Code DETAIL ANATOMY 54979.0 L KEEPER Progress Notes - Hospital En counter - 04/12/2023 - GA:12w5d 04/12/2023 - 12w5d - Elizabeth Hallman RN [place] [facility] Consultation Visit Patient here for consultation due to h/o of IUFD at 19-20 weeks in [facility]. Term following that . Is currently @ 12w5d and complains of nausea and vomiting up to 6x/day. Vaginal pain so severe that it makes it hard to walk. Recent episodes of waking in the middle of the night and unable to catch her breath. Denies chest pain or palpitations. diplomatic interpreter/translator used for entire appointment. Assessment Histories reviewed today include: Past Medical History, Past Surgical History, Social History and Family History and Obstetric History. Refer to the corresponding sections of the history section of [facility] chart and the [facility] Navigator for details. Assessment: Patient's perception of movement: Has not felt movement yet. Normal movement discussed. heart rate observed during brief bedside ultrasound. 130-140s. Preferred delivery location: [facility] Some basic routine education done during assessment. See patient education section for details. Patient states that all her questions were answered. Scheduled to see Dr Carson today. After Visit Summary created, discussed and supplied to patient? Yes Is referring provider within [facility]? no Consult note forwarded: Note sent to nursing pool to forward consult note Face to Face RN time: 30 min Elizabeth Painter RN 04/12/2023 1:59 PM L KEEPER Last Filed Vital Signs Vital Sign Reading Time Taken Comments Blood Pressure 111/71 04/12/2023 2:07 PM MOTEL KEEPER Pulse 72 04/12/2023 2:07 PM MOTEL KEEPER Temperature 36.9 ??C (98.5 ??F) 02/25/2022 4:17 PM CD T Respiratory Rate 20 09/13/2019 3:52 PM CDT Oxygen Saturation 98% 08/12/2022 2:38 PM MOTEL KEEPER Inhaled Oxygen Concentration - - Weight 70.4 kg (155 lb 3.2 oz) 04/12/2023 2:07 P M MOTEL KEEPER Height 152.4 cm (5') 04/12/2023 2:07 PM MOTEL KEEPER Body Mass Index 30.31 04/12/2023 2:07 PM MOTEL KEEPER Plan of Treatment Health Maintenance Due Date Last Done Comments HPV series for age 9-26 (3 - 3-dose series) 05/20/2022 02/25/2022, 12/14/2019 Pap test for age 21-65 12/13/2022 12/14/2019 COVID-19 vaccine series (4 - 2023-24 season) 2023 02/25/2022, 07/02/2021, 06/11/2021 Influenza for age 9-49 02/05/2023 02/25/2022 Depression screening for age 12+ 02/27/2023 02/27/2022, 02/25/2022, 06/26/2019 BMI (ht and wt on same day) for age 18+ 08/13/2023 08/12/2022, 06/26/2022, 02/25/2022, Additional history exists Tetanus booster 12/13/2029 12/14/2019 Tdap Completed 12/14/2019 Hepatitis C screening for age 18-79 Completed 02/25/2022 HIV for age 15-65 Completed 06/26/2022, 02/25/2022 Pneumococcal series for age 6-64 Aged Out No longer eligible based on patient's age to complete this topic Procedures Procedure Name Priority Date/Time Associated Diagnosis Comments US OB DETAIL ANATOMY SINGLE Routine 06/03/2023 1:49 PM MOTEL KEEPER High risk , antepartum from Last 3 Months Results * US OB DETAIL ANATOMY SINGLE (06/03/2023 1:49 PM MOTEL KEEPER) Anatomical Region Laterality Modality , 2or 3 TRIMESTER Ultrasound 06/03/2023 1:01 PM MOTEL KEEPER Narrative 06/03/2023 3:28 PM MOTEL KEEPER Referred By: CELI ??TOMASA ??CNM Indications Code 20 weeks gestation of Z3A.20 2015 --20wk IUFD (in [facility], no records)- maternal report sounds like placental abruption 2018- (bedrest, watched for weak uterus, in [facility]) Declined serum screening Detailed US IMPRESSION: Intrauterine at 20w 1d. presentation is Cephalic. EFW 349 grams, percentile: 56. ?? Growth parameters and estimated weight are appropriate for gestational age. ? No major structural anomalies identified. No markers for aneuploidy identified. Normal Deepest Vertical Pocket of amniotic fluid: 4.54 ??cm. Placental location: Anterior. ?? There is no evidence of placenta previa. The transabdominal cervical length is 3.3 cm. ?? RECOMMENDATIONS: - Return to primary provider for continued care. - No alterations in the delivery plan are necessary. - Growth scans q 3- 4 weeks with local provider - Recommend weekly testing starting at 28 weeks (BPP or NST ok) - this can be done with local provider - Ideally would deliver at 39 weeks but can deliver as early as 37 weeks if needed for maternal anxiety given history of stillbirth COMMENT: Present findings are reassuring. The patient was seen by the Perinatologist today. ??The previous ultrasound and the records were reviewed. ??The results of today's ultrasound were communicated to the patient. New government regulations related to the Century Cures act require that this note be released to the patient immediately, sometimes before the referring provider has been contacted. ??A portion of the information was presented verbally to the patient. ??The remainder is submitted as background for the referring provider, to be discussed as needed. Services Provided: Procedures Code DETAIL ANATOMY 48362.0 Procedure Note Jennifer Carson MD - 06/03/2023 Referred By: CELI BE Nidia IndicationsCode 20 weeks gestation of [id number].20 2016 -19-20wk IUFD (in [facility], no records)- maternal report sounds likeplacental abruption 2018- (bedrest, watched for weak uterus, in [facility]) Declined serum screening Detailed US IMPRESSION: Intrauterine at 20w 1d. presentation is Cephalic. EFW 349 grams, percentile: 56. Growth parameters and estimated weight are appropriate forgestational age. No major structural anomalies identified. No markers for aneuploidy identified. Normal Deepest Vertical Pocket of amniotic fluid: 4.54 cm. Placental location: Anterior. There is no evidence of placenta previa. The transabdominal cervical length is 3.3 cm. RECOMMENDATIONS: - Return to primary provider for continued care. - No alterations in the delivery plan are necessary. - Growth scans q 3- 4 weeks with local provider - Recommend weekly testing starting at 28 weeks (BPP or NST ok)- this can be done with local provider - Ideally would deliver at 39 weeks but can deliver as early as 37 weeksif needed for maternal anxiety given history of stillbirth COMMENT: Present findings are reassuring. The patient was seen by thePerinatologist today. The previous ultrasound and the records were reviewed. The resultsof today's ultrasound were communicated to the patient. New government regulations related to the Cures act requirethat this note be released to the patient immediately, sometimes before the referringprovider has been contacted. A portion of the information was presented verbally to thepatient. The remainder is submitted as background for the referring provider, to be discussed asneeded. Services Provided: ProceduresCode DETAIL [id number] Celi Be CNM from Last 3 Months Care Teams Radiopharmacist Relationship Specialty Start Date End Date Pcp, No . PCP - General 06/19/19 Celi Be CNM [address] [place] [address] Referring Provider Certified Nurse Prefitter 03/10/23
--- OUTSIDE RECORDS SUMMARY | 2023-07-06 12:48 | XMS_ITS | Data Portability ---
Author Name Unknown Address [address] [place] [address] Phone [phone] Organization [facility] [employer] cindy [facility] Address [address] [place] [phone] Assessment No assessment recorded. Plan of Treatment Reminders Order Date Submit Date Provider Last Modified By Organization Details Last Modified Time Details Appointments None recorded . Lab None recorded . Referral None recorded . Procedures None recorded . Surgeries None recorded . Imaging None recorded . Medication Orders Sadia (28) 3 mg-0.02 mg tablet [id number] INTERFACE [facility], [address] [place], [address], 10:40:14 Patient TargetsNo targets recorded. Patient Instructions Encounter Date Encounter Id Patient Instructions Last Modified By Organization Details Last Modified Time 06/11/2021 [id number] May take Ibuprofen/Tylenol prn, ice to arm prn. RTC 3weeks for second dose. [email or web address] Not available 06/11/2021 17:34:20 Reason for Referral None Reported. Problems Name Status Onset Date Resolution Date Notes Provider Name and Address Organization Details Recorded Time Umbilical hernia Active 07/10/19 17 Camila Zamudio NP [address] [place], [address], [facility] [email or web address] 07/10/2020 10:11:34 Problem Notes None recorded. Procedures Surgical History Date Name Laterality Status Provider Name and Address Organization Details Recorded Time 11/06/2019 Date of Last Pap Smear completed Camila Zamudio NP [address] [place], [address], [facility] [email or web address] 07/10/2020 10:20:48 Imaging Results None recorded. Procedure Notes None recorded. Medical Equipment None Reported. Allergies No known drug allergies Medications Name Sig Start Date Stop Date Status Note LastModified by Organization Details LastModified Time drospirenone 3 mg-ethinyl estradiol 0.02 mg tablet TAKE ONE TABLET BY MOUTH DAILY active Not Available Not Available No t Available Vitals Date Recorded Body weight Body mass index (BMI) Body height Provider Name and Address Organization Details Last Updated DateTime 07/10/2020 63248.22 g 26.4 kg/m2 162.56 cm Camila Zamudio NP [address] [place], [address], [facility] 07/10/2020 10:09:42 Social History Question Answer Notes LastModified by Organizat ion Details LastModified Time Tobacco Smoking Status Never Smoker Camila Zamudio NP [address] [place], [address], [facility] 07/10/2020 10:19:16 What Is Your Level Of Alcohol Consumption? None Information not available 07/10/2020 What Is Your Level Of Caffeine Consumption? Occasional Information not available 07/10/2020 Are You Currently Employed? Yes Information not available 07/10/2020 What Type Of Diet Are You Following? 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 With Others And Son Information not available 07/10/2020 How Many Children Do You Have? 1 Information not available 07/10/2020 Are You Sexually Active? Yes Information not available 07/10/2020 General Stress Level Low Information not available 07/10/2020 Sex: Female Functional Status Question Answer Note LastModified by Organizat ion Details LastModified Time What is your exercise level? Occasional Information not available 07/10/2020 Mental Status None recorded. Family History Relationship Description Onset Age of this Age Resolved Age Notes Father Acute stroke 54 54 Medical History No medical history recorded. Gynecological History Statement/Question Response Abnormal Pap N Date of LMP 07/02/2020 Sexually Active? Y Date of Last Pap Smear 11/06/2019 Current Control Method BCPs Desired Control Method BCPs Obstetrics History GPAL:G 2 P 0 0 1 1 Type Value Induced 1 Living 1 Total 2 Immunizations Vaccine Type Date Status Provider Name and Address Organization Details Recorded Time COVID-19, mRNA, LNP-S, PF, 30 mcg/0.3 mL dose, esme-sucrose 06/11/2021 completed CHEL DENISE [address] [place] [address], [phone], [facility] [employer] [facility] 06/11/2021 17:40:47 COVID-19, mRNA, LNP-S, PF, 30 mcg/0.3 mL dose, esme-sucrose 07/02/2021 completed CHEL DENISE [address] [place] [address], [phone], [facility] [employer] [facility] 07/02/2021 16:48:37 Past Encounters Encounter ID Performer Location Encounter Start Date Encounter Closed Date Diagnosis/Indication [id number] Camila Zamudio, [facility] [address] [place] [id number] 07/10/2020 09:59:40 07/10/2020 10:54:47 Initial prescription of oral contraception [id number] RODNEY SANCHEZ DINING CAR WAITER/WAITRESS [facility] [address] [place] [id number] 06/11/2021 17:31:36 06/11/2021 20:55:28 Administration of first dose of SARS-CoV-2 mRNA vaccine [id number] CHEL DENISE [facility] [address] [place] [phone] 07/02/2021 16:37:08 07/02/2021 19:40:04 Administration of second dose of SARS-CoV-2 mRNA vaccine Health Concerns Section Related Observation LastModified by Organization Detai ls LastModified Time None Recorded Concern Status LastModified by Organization Details LastModified Time None Recorded Advance Directives Directive None Recorded Payers Encounter Date Sequence Insurance Name Policy Number Policy Cavazos Covered Member ID Cavazos Member ID Guarantor Name 07/02/2021 SLIDING FEE SCHEDULE - DISCOUNT Sindy Calvo 06/11/2021 SLIDING FEE SCHEDULE - DISCOUNT Sindybette Jay Umesh 07/10/2020 SLIDING FEE SCHEDULE - DISCOUNT Sindy Jay Umesh Notes Date Note Type Note Provider Name and Address Organization Details Recorded Time 07/10/2020 text/html HPI Notes: 20 y.o. established patient presents for refill of COCs Has been taking them x 6 months through [facility]. Ran out of pills 07/01/20 Has been taking Sadia (confirmed with Jm) Tolerating well, no side effects Has monthly periods that are light. LMP 07/02/20 Sexually active with her . They do not use condoms No concern for sexually transmitted infections No history of DVTs, PE, smoking, HTN, migraine with aura PMH includes umbilical hernia and high risk per patient - she reports that her baby was very low in her uterus Camila Zamudio, REORDERING CLERK [address] [place], [address], [facility] [employer] 07/10/2020 10:50:00 06/11/2021 text/html HPI Notes: Requesting Covid 19 vaccine RODNEY SANCHEZ, CHEL [address] [place], [address], [facility] [employer] 06/11/2021 17:40:58 07/02/2021 text/html HPI Notes: Requesting Covid 19 vaccine RODNEY LOVECHEL REHMAN [address] [place], [address], [facility] [employer] 07/02/2021 16:48:54 OBGyn Episode No OBEpisode recorded.
--- NOTE | 2023-07-06 13:00 | CRLHL7_ITS ---
For Patients: As a result of the Century Cures Act, medical imaging exams and procedure reports are released immediately into your electronic medical record. You may view this report before your referring provider. If you have questions, please contact your health care provider. INDICATION: Recheck growth TECHNIQUE: Limited transabdominal two-dimensional snyder-scale ultrasound examination. COMPARISON: 05/06/2023 FINDINGS: There is a living fetus with gestational age of 24 weeks 6 days by LMP and 25 weeks 2 days by today`s measurements. EDC based on LMP is 10/20/2023. BPD: 6.2 cm, 25 weeks 2 days Head circumference: 23.1 cm, 25 weeks 1 day Abdominal circumference: 21.7 cm, 26 weeks 1 day Femur length: 4.4 cm, 24 weeks 3 days The weight is estimated at 805 grams, the 65th percentile. The heart rate is measured at 141 beats per minute and the rhythm appears regular. The amniotic fluid volume is within normal limits with single deepest pocket or 6.8 cm. The placenta is anterior and superior to the cervical os. There is no evidence of previa. IMPRESSION: 1. Living fetus with gestational age of 24 weeks 6 days by LMP and 25 weeks 2 days by today`s measurements. EDC based on LMP is 10/20/2023. 2. weight estimated at 805 grams, at the 65th percentile. Dictated by Dell Bueno MD @ 07/07/2023 7:28:59 AM (Electronically Signed)
== END 2023-07-06 12:47 | disposition home or self-care (01) ==
LOC: US 12:47
PROVIDERS: Visit Provider Obstetrics & Gynecology
DX: Z34.92 Encounter for supervision of normal pregnancy, unspecified, second trimester (principal); Z3A.24 24 weeks gestation of pregnancy; Z87.59 Personal history of other complications of pregnancy, childbirth and the puerperium
CPT/HCPCS: 76816; T1013

== ENCOUNTER 2023-07-30 08:58 | Outpatient (CLI) | payer MEDICAID, SELFPAY | END 2023-07-30 08:59 | disposition home or self-care (01) | PROVIDERS: Visit Provider Obstetrics & Gynecology | DX: Z34.92 Encounter for supervision of normal pregnancy, unspecified, second trimester (principal) | CPT/HCPCS: 86592 ==

== ENCOUNTER 2023-08-02 07:16 | Outpatient (CLI) | payer MEDICAID, SELFPAY ==
--- NOTE | 2023-08-02 07:15 | US_ITS ---
Patient: CLIVE RINCON Facility:?[facility] RIS Patient ID:?[id number] Site Patient ID:?[id number]. Site :?1998 Study:?US-OB Pelvis OB BPP W/ GROWTH-08/02/2023 8:08:47 AM Ordering Physician:JAMES SIEGEL Final Report: INDICATION: History of miscarriage. COMPARISON: 07/06/2023 TECHNIQUE: Grayscale pelvic ultrasound via a transabdominal approach. FINDINGS: number: 1 Position: Cephalic. Placental Position: Anterior. Amniotic fluid: DVP 5.9cm. heart rate: 129bpm. BPD: 7.5cm; 30 weeks and 1 day HC: 27.4cm; 29 weeks and 6 days AC: 25.2cm; 29 weeks and 3 days FL: 5.1cm; 27 weeks and 2 days (6th percentile) US EGA: 29 weeks and 1 day US FIONA: 10/17/2023 Established FIONA: 10/20/2023 EFW: 1285gm, +/-193gm, corresponding to the 40th percentile for the established FIONA. BPP Score: Fluid: 2 Breathin Movement: 2 Tone: 2 Total: 8 Uterus: No significant uterine findings. Right ovary: Unseen Left ovary: Unseen IMPRESSION: Normal BPP score (8/8). measurements correspond to an EFW at the 40th percentile for the previously established gestational age. Dictated by Everton Pearson MD @ 08/02/2023 8:33:28 AM Signed by:?Everton Pearson MD @08/02/2023 8:33:28 AM (Electronic Signature)
== END 2023-08-02 07:17 | disposition home or self-care (01) ==
PROVIDERS: Visit Provider Obstetrics & Gynecology
DX: O09.893 Supervision of other high risk pregnancies, third trimester (principal); Z87.59 Personal history of other complications of pregnancy, childbirth and the puerperium; Z3A.28 28 weeks gestation of pregnancy
CPT/HCPCS: 76816; 76819; T1013

== ENCOUNTER 2023-08-06 10:18 | Outpatient (CLI) | payer MEDICAID, SELFPAY ==
--- NOTE | 2023-08-06 10:15 | US_ITS ---
Patient: CLIVE RINCON Facility:?[facility] RIS Patient ID:?[id number] Site Patient ID:?[id number]. Site :?2000 Study:?US-OB Pelvis OB BPP-08/06/2023 10:57:02 AM Ordering Physician:JAMES SIEGEL Final Report: INDICATION: HX OF COMPLICATIONS COMPARISON: 08.02.23 TECHNIQUE: Real time snyder scale imaging of the fetus was performed. Without non-stress testing. FINDINGS: Sonographic imaging demonstrates a single living intrauterine gestation. Fetus demonstrates a regular cardiac rate of 134 beats per minute. Fetus has a vertex position. The amniotic fluid volume appears normal and there is a single deepest pocket measurement of 5.0 cm. The fetus was active and demonstrated normal breathing movements. There was normal flexion and extension of the trunk and extremities. IMPRESSION: Normal biophysical profile score of 8 out of 8. Dictated by Manish More MD @ 08/06/2023 11:33:50 AM Signed by:?Mainsh More MD @08/06/2023 11:33:50 AM (Electronic Signature)
== END 2023-08-06 10:19 | disposition home or self-care (01) ==
LOC: US 10:19
PROVIDERS: Visit Provider Obstetrics & Gynecology
DX: Z87.59 Personal history of other complications of pregnancy, childbirth and the puerperium (principal)
CPT/HCPCS: 76819; T1013

== ENCOUNTER 2023-08-12 09:39 | Outpatient (CLI) | payer MEDICAID, SELFPAY ==
--- NOTE | 2023-08-12 09:45 | US_ITS ---
Patient: CLIVE RINCON Facility:?[facility] RIS Patient ID:?[id number] Site Patient ID:?[id number]. Site :?2000 Study:?US-OB Pelvis BPP-08/12/2023 10:47:55 AM Ordering Physician:?Melani Dubon Final Report: INDICATION: History of recurrent spontaneous abortions COMPARISON: 08/06/2023 TECHNIQUE: Real time snyder scale imaging of the fetus was performed. Without non-stress testing. FINDINGS: Sonographic imaging demonstrates a single living intrauterine gestation. Fetus demonstrates a regular cardiac rate of 141 beats per minute. Fetus has a vertex position. The amniotic fluid volume appears normal and there is a single deepest pocket measurement of 4.6 cm. The fetus was active and demonstrated normal breathing movements. There was normal flexion and extension of the trunk and extremities. IMPRESSION: Normal biophysical profile score of 8 out of 8. Dictated by Manish More MD @ 08/12/2023 11:24:48 AM Signed by:?Manish More MD @08/12/2023 11:24:48 AM (Electronic Signature)
== END 2023-08-12 09:40 | disposition home or self-care (01) ==
LOC: US 09:39
PROVIDERS: Visit Provider Obstetrics & Gynecology
DX: O26.20 Pregnancy care for patient with recurrent pregnancy loss, unspecified trimester (principal)
CPT/HCPCS: 76819; 87491; 87591; T1013

== ENCOUNTER 2023-08-19 09:00 | Outpatient (CLI) | payer MEDICAID, SELFPAY ==
--- NOTE | 2023-08-19 09:15 | US_ITS ---
Patient: CLIVE RINCON Facility:?[facility] RIS Patient ID:?[id number] Site Patient ID:?[id number]. Site :?2000 Study:?US-OB Pelvis BPP-08/19/2023 9:57:54 AM Ordering Physician:Melani Ascencio Final Report: INDICATION: supervision of normal (hx of IUFD) COMPARISON: 08/12/2023 TECHNIQUE: Real time snyder scale imaging of the fetus was performed. Without non-stress testing. FINDINGS: Sonographic imaging demonstrates a single living intrauterine gestation. Fetus demonstrates a regular cardiac rate of 137 beats per minute. Fetus has a vertex position. The amniotic fluid volume appears normal and there is a single deepest pocket measurement of 3.8 cm. The fetus was active and demonstrated normal breathing movements. There was normal flexion and extension of the trunk and extremities. IMPRESSION: Normal biophysical profile score of 8 out of 8. Dictated by Manish More MD @ 08/19/2023 11:44:52 AM Signed by:?Manish More MD @08/19/2023 11:44:52 AM (Electronic Signature)
== END 2023-08-19 09:01 | disposition home or self-care (01) ==
LOC: US 09:00
PROVIDERS: Visit Provider Obstetrics & Gynecology
DX: Z34.90 Encounter for supervision of normal pregnancy, unspecified, unspecified trimester (principal)
CPT/HCPCS: 76819; T1013

== ENCOUNTER 2023-08-26 08:53 | Outpatient (CLI) | payer MEDICAID, SELFPAY ==
--- NOTE | 2023-08-26 09:15 | US_ITS ---
Patient: CLIVE RINCON Facility:?[facility] RIS Patient ID:?[id number] Site Patient ID:?[id number]. Site :?1998 Study:?US-OB Pelvis BPP W GROWTH-08/26/2023 9:30:33 AM Ordering Physician:EDDIE BLANDON Final Report: INDICATION: HX IUFD TECHNIQUE: Real time snyder scale imaging of the fetus was performed. COMPARISON: 08/19/2023 FINDINGS: Sonographic imaging demonstrates a single living intrauterine gestation. Fetus demonstrates a regular cardiac rate of 124 beats per minute. Fetus has a vertex position. The placenta lies anteriorly. Amniotic fluid volume appears normal and there is a single deepest pocket of 5.8 cm. The estimated weight is 1968gm which lies at the 48th %. On the prior OB ultrasound dated 08/02/2023 the estimated weight was at the 40th percentile. BPD 33rd percentile. HC 15th percentile. AC 66th percentile. FL 37th percentile. The fetus was active and demonstrated normal breathing movements. There was normal flexion and extension of the trunk and extremities. IMPRESSION: Normal biophysical profile score 8/8. Sonographic gestational age 32 weeks 2 days and sonographic due date 10/19/2023. Good correlation with dates. Normal interval growth. Estimated weight 48th percentile. Abdominal circumference 66th percentile Dictated by Manish More MD @ 08/26/2023 10:48:44 AM Signed by:?Manish More MD @08/26/2023 10:48:44 AM (Electronic Signature)
== END 2023-08-26 08:54 | disposition home or self-care (01) ==
PROVIDERS: Visit Provider Obstetrics & Gynecology
DX: O09.93 Supervision of high risk pregnancy, unspecified, third trimester (principal); Z87.59 Personal history of other complications of pregnancy, childbirth and the puerperium; Z3A.32 32 weeks gestation of pregnancy
CPT/HCPCS: 76816; 76819; T1013

== ENCOUNTER 2023-09-03 07:12 | Outpatient (CLI) | payer MEDICAID, SELFPAY ==
--- NOTE | 2023-09-03 07:15 | US_ITS ---
Patient: CLIVE RINCON Facility:?[facility] RIS Patient ID:?[id number] Site Patient ID:?[id number]. Site :?1998 Study:?US-OB Pelvis BPP-09/03/2023 7:50:58 AM Ordering Physician:EDDIE BLANDON Final Report: INDICATION: Personal history of complications TECHNIQUE: Limited transabdominal two-dimensional snyder-scale ultrasound examination. COMPARISON: 08/26/2023 FINDINGS: There is a living fetus in cephalic lie with gestational age of 33 weeks 2 days by LMP and EDC of 10/20/2023. The biophysical profile score is 8/8. The heart rate is measured at 125 beats per minute and the rhythm appears regular. The amniotic fluid volume is within normal limits with single deepest pocket of 6.5 cm. The placenta is anterior and superior to the cervical os. There is no evidence of previa. Incidental note is made of a 4 x 4 x 2 mm echogenic focus in the dome of the liver. This is of questionable significance. IMPRESSION: 1. Living fetus in cephalic lie with gestational age of 33 weeks 2 days by LMP and EDC 10/20/2023. 2. Biophysical profile score is 8/8. 3. Incidentally noted 4 x 4 x 2 mm echogenic focus in the dome of the liver. This is of questionable significance. Dictated by Dell Bueno MD @ 09/04/2023 6:50:28 AM Signed by:?Dell Bueno MD @09/04/2023 6:50:28 AM (Electronic Signature)
--- OUTSIDE RECORDS SUMMARY | 2023-09-10 11:57 | XMS_ITS | Data Portability ---
Author Name Unknown Address [address] [place] [address] Phone [phone] Organization [facility] [employer] [facility] [facility] Address [address] [place] [phone] Assessment No assessment recorded. Plan of Treatment Reminders Order Date Submit Date Provider Last Modified By Organization Details Last Modified Time Details Appointments None recorded . Lab None recorded . Referral None recorded . Procedures None recorded . Surgeries None recorded . Imaging None recorded . Medication Orders Sadia (28) 3 mg-0.02 mg tablet 021 [id number] INTERFACE [facility], [address] [place], [address], 10:40:14 Patient TargetsNo targets recorded. Patient Instructions Encounter Date Encounter Id Patient Instructions Last Modified By Organization Details Last Modified Time 06/11/2021 [id number] May take Ibuprofen/Tylenol prn, ice to arm prn. RTC 3weeks for second dose. [email or web address] Not available 06/11/2021 17:34:20 Reason for Referral None Reported. Problems Name Status Onset Date Resolution Date Notes Provider Name and Address Organization Details Recorded Time Umbilical hernia Active 07/10/19 17 Camila Zamudio NP [address] [place], [address], [facility] [employer] 07/10/2020 10:11:34 Problem Notes None recorded. Procedures Surgical History Date Name Laterality Status Provider Name and Address Organization Details Recorded Time 11/06/2019 Date of Last Pap Smear completed Camila Zamudio NP [address] [place], [address], [facility] [employer] 07/10/2020 10:20:48 Imaging Results None recorded. Procedure [...] Address Organization Details Last Updated DateTime 07/10/2020 13438.22 g 26.4 kg/m2 162.56 cm Camila Zamudio NP [address] [place], [address], [facility] 07/10/2020 10:09:42 Social History Question Answer Notes LastModified by Organizat ion Details LastModified Time Tobacco Smoking Status Never Smoker Camila Zamudio NP [address] [place], [address], [facility] 07/10/2020 10:19:16 What Is Your Level Of [...] mL dose, esme-sucrose 06/11/2021 completed CHEL DENISE [address] [place] [address], [phone], [facility] 06/11/2021 17:40:47 COVID-19, mRNA, LNP-S, PF, 30 mcg/0.3 mL dose, esme-sucrose 07/02/2021 completed CHEL DENISE [address] [place] [address], [phone], [facility] 07/02/2021 16:48:37 Past Encounters Encounter ID Performer Location Encounter Start Date Encounter Closed Date Diagnosis/Indication Diagnosis SNOMED-CT Code [id number] [facility] [address] [place] [phone] 07/10/2020 09:59:40 07/10/2020 10:54:47 Initial prescription of oral contraception [id number] CHEL DENISE [facility] [address] [place] [phone] 06/11/2021 17:31:36 06/11/2021 20:55:28 Administration of first dose of SARS-CoV-2 mRNA vaccine [id number] CHEL DENISE [facility] [address] [place] [phone] 07/02/2021 16:37:08 07/02/2021 19:40:04 Administration of second dose of SARS-CoV-2 mRNA vaccine [id number] Health Concerns Section Related Observation LastModified by Organization Detai ls LastModified Time None Recorded Concern Status LastModified by Organization Details LastModified Time None Recorded Advance Directives Directive None Recorded Payers Encounter Date Sequence Insurance Name Policy Number Policy Cavazos Covered Member ID Cavazos Member ID Guarantor Name 07/02/2021 SLIDING FEE SCHEDULE - DISCOUNT Sindy Calvo 06/11/2021 SLIDING FEE SCHEDULE - DISCOUNT Sindy Calvo 07/10/2020 SLIDING FEE SCHEDULE - DISCOUNT Sindy Calvo Notes Date Note Type Note Provider Name and Address Organization Details Recorded Time 07/10/2020 text/html HPI Notes: 20 y.o. established patient presents for refill of COCs Has been taking them x 6 months through [facility] Planning. Ran out of pills 07/01/20 Has [...] very low in her uterus Camila Zamudio, COMMUNICATION MANAGER [address] [place], [address], [facility] 07/10/2020 10:50:00 06/11/2021 text/html HPI Notes: Requesting Covid 19 vaccine CHEL DENISE [address] [place], [address], [facility] 06/11/2021 17:40:58 07/02/2021 text/html HPI Notes: Requesting Covid 19 vaccine RODNEYCHEL FLETCHER [address] [place], [address], [facility] 07/02/2021 16:48:54 OBGyn Episode No OBEpisode recorded.
--- OUTSIDE RECORDS SUMMARY | 2023-09-10 11:57 | XMS_ITS | Clinical Summary ---
Author Name Unknown Organization [employer] [facility] Address [place], [place] [address] Care Team Providers Care Call Center Professional Name Role Phone Pcp, No Primary Care Provider Celi Zapata CN Unavailable [phone] Allergies No known active allergies Medications Medication [...] if needed for Nausea/Vomiting . 30 Tablet 06/26/2022 Active metoclopramide HCl (REGLAN) 10 mg tablet 04/08/2023 Act gely Active Problems Problem Noted Date Diagnosed Date History of loss in prior , currently 04/12/2023 Round ligament pain 04/12/2023 [facility] Supervision of high-risk Overview: Gretta Von : 2000 MPP ULTRASOUND/TESTING PATIENT MPP CONSULT ON 04/12/23 Support person name: Headhunter: Yes: Fijian ULTRASOUND TYPE: L2 on 06/03/23 REASON FOR VISIT: Hx IUFD ~20w NEXT VISIT ALERTS: NURSING VISIT ALERT: Create and link episode at day of visit. Document in Dating section. GA 12w5d Final FIONA by Early Ultrasound LMP Date: Patient's last [...] Delivery: 10/20/23. MATERNAL 2016 19-20w IUFD (in [facility], no records available) 2017 40w (bedrest, watched for weak uterus, in [facility]) PREVIOUS ULTRASOUNDS: 06/03/23 L2 03/08/23 7w5d ECHO: REFERRING PHYSICIAN/PHONE/LAST UPDATE: Celi Be [facility] [phone] Primary MD approves scheduling of recommended ultrasounds/testing: Yes SPECIALISTS/CONSULTS: Include: Specialty MD Clinic Name Phone# [place] and ADDED TO PATIENT CARE TEAM Yes GENETICS: Declines/Not Done CARE COORDINATION: PERTINENT LABS: Labs reviewed? Yes Normal? Not all labs available Blood type: O Rh Positive Antibody screen: Negative Non-[facility] labs need to be entered in [facility] Properties? Yes PERTINENT MEDS: PROCEDURES: IF FGR <10% or EFW <2000 grams: Add FGRPCOM PLAN OF CARE: Original and updated POC 06/12/22 [place] History of loss at 20 weeks - No records available, labs and pathology unavailable, but maternal report of events is consistent with placental abruption (risk of recurrence 5-10%) - Consider antiphospholipid antibody testing, TSH level in [place] - Recommend detailed anatomy scan at 19 weeks with [facility] - Growth scans q 3- 4 weeks [...] - Recommend ekg or holter monitor in [place] - Also told her to try stopping [...] status 06/26/2019 06/26/2022 Overview: First injection 06/26/2019 Immunizations Name Administration Dates Next Due COVID-19 vaccine (Pfizer-Bio NTech 30mcg/0.3mL) 12YO+ BIVALENT PF, MDV 02/25/2022 COVID-19 vaccine (Pfizer-Bio NTech 30mcg/0.3mL) 12YO+ YUSRA-SUCROSE PF, MDV 07/02/2021 COVID-19 vaccine (Pfizer-BioNTech 30mcg/0.3mL) P F, MDV 06/11/2021 HPV 9 [...] PTL Magda A1 A5 Name Cl in 2016 SAB 20w 0d Feta l Myrna se Living Status Comments:IUFD, bleeding entire Delivery Location:[facility] 09/17 Term 39w 5d 2.49 kg (5 lb 8 oz) M Vag Lela ng Pastor Complications:None Delivery Location:[facility] 06/29 SAB 6w0 d SPONTANEO US Current Summary Episode Dates Number of Fetuses Estimated Date of Delivery 04/12/2023 - Present (09/10/2023) 10/20/2023 (set by Elizabeth Painter, RN on 04/12/2023 based on Ultrasound on 03/08/2023) Dating Summary Based On FIONA GA Diff Last Menstrual Period on 08/10/2022 05/17/2023 +22w2d Ultrasound on 03/08/2023 10/20/2023 Working GA:7w5d Vitals Pregravid Weight Height TWG (As of 09/10/2023) Pregrav id BMI 1.524 m (5') Date GA Fund Present FHR Mvmt BP Weight Edema Alb Glu Ket Dil/ Eff/Sta 3 12w5d Inpatient data not displayed here. See encounter summary. 3 20w1d Inpatient data not displayed here. See encounter summary. Notes Progress Notes - Hospital En counter - 06/03/2023 - GA:20w1d 06/03/2023 - 20w1d - Jennifer Carson MD Referred By: CELI MOHAMUD Indications Code 20 weeks gestation of Z3A.20 2015-20wk IUFD (in [facility], no records)- maternal report sounds like placental abruption 2018- (bedrest, watched for weak uterus, in [facility]) Declined serum screening Detailed US IMPRESSION: Intrauterine [...] government regulations related to the Cures act require that this note be released to the patient immediately, sometimes before the referring provider has been contacted. A portion of the information was presented verbally to the patient. The remainder is submitted as background for the referring provider, to be discussed as needed. Services Provided: Procedures Code DETAIL ANATOMY 13000.0 ORATION OFFICER Progress Notes - Hospital En counter - 04/12/2023 - GA:12w5d 04/12/2023 - 12w5d - Elizabeth Hallman, RN PR [facility]icians Consultation Visit Patient here for consultation due to h/o of IUFD at 19-[address] [facility]. Term following that . Is currently @ 12w5d and complains of nausea and vomiting up to 6x/day. Vaginal pain so severe that it makes it hard to walk. Recent episodes of waking in the middle of the night and unable to catch her breath. Denies chest pain or palpitations. inspector automatic typewriter used for entire appointment. Assessment Histories reviewed today include: Past Medical History, Past Surgical History, Social History and Family History and Obstetric History. Refer to the corresponding sections of the history section of [facility] chart and the [facility] Navigator for details. Assessment: Patient's perception of movement: Has not felt movement yet. Normal movement discussed. heart rate observed during brief bedside ultrasound. 130-140s. Preferred delivery location: [facility] Some basic routine education done during assessment. [...] min Elizabeth Painter RN 04/12/2023 1:59 PM ORATION OFFICER Last Filed Vital Signs Vital Sign Reading Time Taken Comments Blood Pressure 111/71 04/12/2023 2:07 PM RESTORATION OFFICER Pulse 72 04/12/2023 2:07 PM RESTORATION OFFICER Temperature 36.9 ??C (98.5 ??F) 02/25/2022 4:17 PM CD T Respiratory Rate 20 09/13/2019 3:52 PM CDT Oxygen Saturation 98% 08/12/2022 2:38 PM RESTORATION OFFICER Inhaled Oxygen Concentration - - Weight 70.4 kg (155 lb 3.2 oz) 04/12/2023 2:07 P M RESTORATION OFFICER Height 152.4 cm (5') 04/12/2023 2:07 PM RESTORATION OFFICER Body Mass Index 30.31 04/12/2023 2:07 PM RESTORATION OFFICER Plan of Treatment Health Maintenance Due Date Last Done Comments HPV series for age 9-26 (3 - 3-dose series) 05/20/2022 02/25/2022, 12/14/2019 Pap test for age 21-65 12/13/2022 12/14/2019 COVID-19 vaccine series ( season) 2023 02/25/2022, 07/02/2021, 06/11/2021 Depression screening for age 12+ 02/27/2023 02/27/2022, 02/25/2022, 06/26/2019 BMI (ht and wt on same day) for age 18+ 08/13/2023 08/12/2022, 06/26/2022, 02/25/2022, Additional history exists Influenza for age 9-49 02/06/2024 02/25/2022 Tetanus booster 12/13/2029 12/14/2019 Tdap Completed 12/14/2019 Hepatitis C screening for age 18-79 Completed 02/25/2022 HIV for age 15-65 Completed 06/26/2022, 02/25/2022 Pneumococcal series for age 6-64 Aged Out No longer eligible based on patient's age to complete this topic Procedures Procedure Name Priority Date/Time Associated Diagnosis Comments LC HIV-1/O/2, 4TH GENERATION Routine 06/26/2022 3:11 PM RESTORATION OFFICER Encounter for supervision of other normal in first trimester ANTI HCV Routine 02/25/2022 5:28 PM CDT Need for hepatitis C screening test [employer] THIN PREP PAP SCREEN IMAGED Routine 12/14/2019 9:00 AM CDT Screening for malignant neoplasm of cervix from Last 3 Months or Most Recently Relevant to Health Maintenance Results * LC HIV-1/O/2, 4TH GENERATION (06/26/2022 3:11 PM RESTORATION OFFICER) Pathologist [facility] HIV Scr 4th Gen Non Reactive Non Reactive 06/30/2022 12:08 PM RESTORATION OFFICER [facility] Comment: HIV Negative HIV-1/HIV-2 antibodies and HIV-1 p24 antigen were NOT detected. There is no laboratory evidence of HIV infection. Blood BLOOD SPECIMEN / Unknown Venipuncture / Unknown 06/26/2022 3:11 PM RESTORATION OFFICER 06/26/2022 3:15 PM RESTORATION OFFICER Narrative [facility] - 06/30/2022 12:08 PM RESTORATION OFFICER Performed at: ??[address] ??[id number] [employer] Specials: Sheldon Castillo MD, Phone: ??[phone] Cami Brunner MD LABORATORY [facility] ([facility]) [address] [place] [address] * ANTI HCV (02/25/2022 5:28 PM CDT) HEPATITIS C ANTIBODY Non-React gely Non-React gely 02/27/2022 3:09 AM CDT [facility] Comment:Antibodies to HCV no t detected; does not exclude the possibility of exposure to HCV. Blood BLOOD SPECIMEN / Unknown Venipuncture / Unknown 02/25/2022 5:28 PM CDT 02/25/2022 5:29 PM CDT Meron Machado MD SEND OUTS [facility]OR[facility] LABORATORY [address] [place] [address], * [employer] THIN PREP PAP SCREEN IMAGED [[id number]] (12/14/2019 9:00 AM CDT) Case Report Gynecologic Cytology Report ? Case: [id number] ? Authorizing Provider: ??Meron Machado MD ? Collected: ? 12/14/2019 0900 ? Ordering Location: ? [facility] ?? Received: ?12/14/2019 0921 ? Clinic ? First Screen: ?Galindo Mccall ? Rescreen: ?Kelly Hansen ? Specimen: ?[employer] ThinPrep Vial Screening, Cervical ? 12/20/2019 8:10 AM CDT [facility]AL [facility]AT[facility] INTERPRETATION/ RESULT NEGATIVE FOR INTRAEPITHELIAL LESION OR MALIGNANCY (NIL) (none) 12/20/2019 8:10 AM CDT [facility] [employer] [facility]-C ENTRAL LABORATORY IMEN ADEQUACY Satisfactory for evaluation Endocervical component present 12/20/2019 8:10 AM CDT [facility] [employer] LABORATORYC ENTRAL LABORATORY HPV REQUEST HPV if ASCUS 12/20/2019 8:10 AM CDT [facility] EN[facility]AL LAB[facility]ATORY Date of LMP 09/14/2019 12/20/2019 8:10 AM CDT [facility] [employer] LABORATORY-C ENTRAL LABORATORY Last Pap Date n/a 12/20/2019 8:10 AM CDT [facility] [employer] LABORATORY-C ENTRAL LABORATORY Last Pap Result First Pap/Unknown 8:10 AM CDT [facility] [employer] LABORATORY-C ENTRAL LABORATORY Abnormal Pap or [place] Bx in last 5 years No 12/20/2019 8:10 AM CDT [facility] [employer] LABORATORY-C ENTRAL LABORATORY Menstrual Status Irregular Periods 12/20/2019 8:10 AM CDT [facility] [employer] LABORATORY-C ENTRAL LABORATORY [place] Bx Done Today No 12/20/2019 8:10 AM CDT [facility] [employer] [facility] ENTRAL LABORATORY Additional Information None given 12/20/2019 8:10 AM CDT [facility] [employer] [facility] Comment: Cytology is screened at [facility] [employer] [facility], Central Laboratory - [address], [place] [address] and [facility] - [address], [place] [address] and [facility] Laboratory - [address] [place] [address] Interpreted at [facility], Central Laboratory - [address], [place] [address] Automated Review Successful 12/20/2019 8:10 AM CDT [facility] [employer] LABORATORY-C ENTRAL LABORATORY Comment:Specimen processed s uccessfully by automated erp developer device, [employer] Imaging System, [employer] Note The pap test is a screening technique, not a diagnostic procedure. It is used primarily to screen for squamous cancers and precursor lesions. Published studies have shown that it is subject to both false negative and false positive results. The pap test should not be used as the sole means to diagnose or exclude pre-malignant and malignant lesions. 12/20/2019 8:10 AM CDT [facility] LABORATORY-C ENTRAL LABORATORY Other (Cervical) Non-Blood / Unknown 12/14/2019 9:00 AM CDT 12/14/2019 9:21 AM CDT Meron Machado MD PATHOLOGY/CYTOLOGY [facility] [address] [place] [address], [place] from Last 3 Months or Most Recently Relevant to Health Maintenance Care Teams Call Center Professional Relationship Specialty Start Date End Date Pcp, No . PCP - General 06/19/19 Celi Be CNM [address] [place] [address] Referring Provider Certified Nurse Automotive Exhaust Emissions Technician 03/10/23
== END 2023-09-03 07:13 | disposition home or self-care (01) ==
LOC: US 07:12
PROVIDERS: Visit Provider Obstetrics & Gynecology
DX: Z87.59 Personal history of other complications of pregnancy, childbirth and the puerperium (principal); Z3A.33 33 weeks gestation of pregnancy
CPT/HCPCS: 76819; T1013

== ENCOUNTER 2023-09-09 09:06 | Outpatient (CLI) | payer MEDICAID, SELFPAY ==
--- NOTE | 2023-09-09 09:15 | US_ITS ---
Patient: CLIVE RINCON Facility:?[facility] RIS Patient ID:?[id number] Site Patient ID:?[id number]. Site :?2000 Study:?US-OB Pelvis OB BPP-09/09/2023 9:46:27 AM Ordering Physician:?JAMES BLANDON M.D. Final Report: INDICATION: Personal history of complications of COMPARISON: 09.03.23 TECHNIQUE: Real time synder scale imaging of the fetus was performed. Without non-stress testing. FINDINGS: Sonographic imaging demonstrates a single living intrauterine gestation. Fetus demonstrates a regular cardiac rate of 133 beats per minute. Fetus has a vertex position. The amniotic fluid volume appears normal and there is a single deepest pocket measurement of 3.3 cm. The fetus was active and demonstrated normal breathing movements. There was normal flexion and extension of the trunk and extremities. IMPRESSION: Normal biophysical profile score of 8 out of 8. Dictated by Manish More MD @ 09/09/2023 10:08:17 AM Signed by:?Manish More MD @09/09/2023 10:08:17 AM (Electronic Signature)
== END 2023-09-09 09:07 | disposition home or self-care (01) ==
LOC: US 09:06
PROVIDERS: Visit Provider Obstetrics & Gynecology
DX: Z87.59 Personal history of other complications of pregnancy, childbirth and the puerperium (principal)
CPT/HCPCS: 76819; T1013

== ENCOUNTER 2023-09-10 09:23 | Outpatient (CLI) | payer MEDICAID, SELFPAY ==
[2023-09-10 09:41] VITALS: PULSE 58; O2SAT 99
[2023-09-10 09:42] VITALS: BP 107/69; PULSE 69
[2023-09-10 09:45] VITALS: TEMP 36.1
[2023-09-10 10:28] LABS: Amnisure Rom* Negative
[2023-09-10 10:29] LABS: Appearance Urine Clear (Clear); Bilirubin Urine Negative (Negative); Blood Urine Negative (Negative); Color Urine Yellow (Yellow); Glucose Urine Negative (Negative); Ketones Urine Negative (Negative); Leukocyte Esterase Urine 1+ (Negative); Nitrite Urine Negative (Negative); Protein Urine Negative (Negative); Specific Gravity Urine 1.015 (1.000-1.030); Urobilinogen Urine 0.2 (0.2-1.0)
[2023-09-10] MEDS: ACETAMINOPHEN 500 MG TABLET 1000 MG PO (10:42)
[2023-09-10 10:43] LABS: RBC Urine 0-2 (0-2); WBC Urine 0-2 (0-5)
[2023-09-10 10:44] LABS: Clue Cells <20% Clue Cells Seen (None Seen); Trichomonas No Trichomonas Seen (None Seen); Yeast No Yeast Seen (None Seen)
--- NOTE | 2023-09-10 16:39 | PC.OBNST ---
NST Note NST Note Start: 09/10/23 09:45 Freq: ONCE Status: Active Protocol: Document 09/10/23 11:34 ROSS (Rec: 09/10/23 16:39 ROSS [id number]) NST Note 4 Para (# of births) 1 EDC 10/10/23 Gestational Age In Weeks & Days 35 Weeks & 5 Days High Risk Factors History of / Stillborn Patient Presented with Complaint(s) of Leaking fluid,Pain If Pain, describe location Abdominal pain that was under her umbilicus. Was relieved with Tylenol Reactive Yes Appropriate for Gestational Age Yes RN Fernanda Moy, RN Date 09/10/23 Reactive Yes Appropriate for Gestational Age Yes CHARU Lundberg RN Date 09/10/23 OB NST charge Yes Complete NST Note via Write Note Yes The provider's electronic signature indicates the NST is reactive/appropriate for gestational age. *Note to provider: If an addendum is required, open the patient's chart and click on the note under the Nurse/Allied Health tab.
== END 2023-09-10 11:34 | disposition home or self-care (01) ==
LOC: OB OUT 09:26 → OB 09:26
PROVIDERS: Visit Provider Obstetrics & Gynecology
DX: O47.03 False labor before 37 completed weeks of gestation, third trimester (principal); Z3A.35 35 weeks gestation of pregnancy
CPT/HCPCS: 59025; 81001; 81003; 84112; 87086; 87210; G0463; T1013; A9270

== ENCOUNTER 2023-09-16 09:15 | Outpatient (CLI) | payer MEDICAID, SELFPAY ==
--- NOTE | 2023-09-16 09:15 | US_ITS ---
Patient: CLIVE RINCON Facility:?[facility] RIS Patient ID:?[id number] Site Patient ID:?[id number]. Site :?2000 Study:?US-OB Pelvis OB BPP-09/16/2023 9:51:07 AM Ordering Physician:?HUANG BLANDON M.D. Final Report: INDICATION: IUFD, history of complications in COMPARISON: 09/09/2023 TECHNIQUE: Real time snyder scale imaging of the fetus was performed. Without non-stress testing. FINDINGS: Sonographic imaging demonstrates a single living intrauterine gestation. Fetus demonstrates a regular cardiac rate of 122 beats per minute. Fetus has a vertex position. The amniotic fluid volume appears normal and there is a single deepest pocket measurement of 3.5 cm. The fetus was active and demonstrated normal breathing movements. There was normal flexion and extension of the trunk and extremities. IMPRESSION: Normal biophysical profile score of 8 out of 8. Dictated by Manish More MD @ 09/16/2023 10:55:43 AM Signed by:?Manish More MD @09/16/2023 10:55:43 AM (Electronic Signature)
--- OUTSIDE RECORDS SUMMARY | 2023-09-16 09:16 | XMS_ITS | Data Portability ---
Author Name Unknown Address [address] [place] [address] Phone [phone] Organization [facility] [employer] cindy MYLENEL[facility] OFFICE Address [address] [place] [phone] Assessment No assessment recorded. Plan of Treatment Reminders Order Date Submit Date Provider Last Modified By Organization Details Last Modified Time Details Appointments None recorded . Lab None recorded . Referral None recorded . Procedures None recorded . Surgeries None recorded . Imaging None recorded . Medication Orders Sadia (28) 3 mg-0.02 mg tablet [id number] [id number] INTERFACE [facility], [address] [place], [address], 10:40:14 Patient TargetsNo targets recorded. Patient Instructions Encounter Date Encounter Id Patient Instructions Last Modified By Organization Details Last Modified Time 06/11/2021 [id number] May take Ibuprofen/Tylenol prn, ice to arm prn. RTC 3weeks for second dose. [email or web address] Not available 06/11/2021 17:34:20 Reason for Referral None Reported. Problems Name Status Onset Date Resolution Date Notes Provider Name and Address Organization Details Recorded Time Umbilical hernia Active 07/10/19 17 Camila Zamudio NP [address] [place], [address], [facility] [employer] 07/10/2020 10:11:34 Problem Notes None recorded. Procedures Surgical History Date Name Laterality Status Provider Name and Address Organization Details Recorded Time 11/06/2019 Date of Last Pap Smear completed Camila Zamudio NP [address] [place], [address], [facility] [employer] 07/10/2020 10:20:48 Imaging Results None recorded. Procedure [...] Address Organization Details Last Updated DateTime 07/10/2020 09845.22 g 26.4 kg/m2 162.56 cm Camila Zamudio NP [address] [place], [address], [facility] 07/10/2020 10:09:42 Social History Question Answer Notes LastModified by Organizat ion Details LastModified Time Tobacco Smoking Status Never Smoker Camila Zamudio NP [address] [place], [address], [facility] 07/10/2020 10:19:16 What Is Your Level Of [...] mL dose, esme-sucrose 06/11/2021 completed CHEL DENISE [address] [place] [address], [phone], [facility] [employer] Located [facility] 06/11/2021 17:40:47 COVID-19, mRNA, LNP-S, PF, 30 mcg/0.3 mL dose, esme-sucrose 07/02/2021 completed CHEL DENISE [address] [place] [address], [phone], [facility] [employer] Loc[facility] 07/02/2021 16:48:37 Past Encounters Encounter ID Performer Location Encounter Start Date Encounter Closed Date Diagnosis/Indication Diagnosis SNOMED-CT Code [id number] Camila Zamudio NP [facility] [address] [place] [phone] 07/10/2020 09:59:40 07/10/2020 10:54:47 Initial prescription of oral contraception [id number] CHEL DENISE [facility] [address] [place] [phone] 06/11/2021 17:31:36 06/11/2021 20:55:28 Administration of first dose of SARS-CoV-2 mRNA vaccine [id number] CHEL DENISE [facility] [address] [place] [id number] 07/02/2021 16:37:08 07/02/2021 19:40:04 Administration of second dose of SARS-CoV-2 mRNA vaccine [id number] Health Concerns Section Related Observation LastModified by [...] been taking them x 6 months through [facility]. Ran out of pills 07/01/20 Has [...] very low in her uterus Camila Zamudio, PRINCIPAL PRODUCT MANAGER [address] [place], [address], [facility] 07/10/2020 10:50:00 06/11/2021 text/html HPI Notes: Requesting Covid 19 vaccine CHEL DENISE [address] [place], [phone], [facility] 06/11/2021 17:40:58 07/02/2021 text/html HPI Notes: Requesting Covid 19 vaccine RODNEYCHEL FLETCHER [address] [place], [address], [facility] 07/02/2021 16:48:54 OBGyn Episode No OBEpisode recorded.
--- OUTSIDE RECORDS SUMMARY | 2023-09-16 09:17 | XMS_ITS | Clinical Summary ---
Author Name Unknown Organization [employer] [facility] Address [place], [place] [address] Care Team Providers Care Chemistry Research Assistant Name Role Phone Pcp, No Primary Care Provider Celi Zapata CN Unavailable [phone] Allergies No known active allergies Medications Medication [...] , currently 04/12/2023 Round ligament pain 04/12/2023 [facility] Supervision of high-risk 3 Overview: Gretta Von : 2000 MPP ULTRASOUND/TESTING PATIENT MPP CONSULT ON 04/12/23 Support person name: V/[place] Signal Officer: Yes: Vietnamese ULTRASOUND TYPE: L2 on 06/03/23 REASON FOR [...] Delivery: 10/20/23. MATERNAL 2016 19-20w IUFD (in [facility], no records available) 2017 40w (bedrest, watched for weak uterus, in [facility]) PREVIOUS ULTRASOUNDS: 06/03/23 L2 03/08/23 7w5d ECHO: REFERRING PHYSICIAN/PHONE/LAST UPDATE: Celi Be [facility] [phone] Primary MD approves scheduling of recommended ultrasounds/testing: Yes SPECIALISTS/CONSULTS: Include: Specialty MD Clinic Name Phone# [place] and ADDED TO PATIENT CARE TEAM Yes GENETICS: Declines/Not Done CARE COORDINATION: PERTINENT LABS: Labs reviewed? Yes Normal? Not all labs available Blood type: O Rh Positive Antibody screen: Negative Non-[facility] labs need to be entered in [employer]? Yes PERTINENT MEDS: PROCEDURES: IF FGR <10% or EFW <2000 grams: Add FGRPCOM PLAN OF CARE: Original and updated POC 06/12/22 [place] History of loss at 20 weeks - No records available, labs and pathology unavailable, but maternal report of events is consistent with placental abruption (risk of recurrence 5-10%) - Consider antiphospholipid antibody testing, TSH level in [place] - Recommend detailed anatomy scan at [address] [facility] - Growth scans q 3- 4 [...] - Recommend ekg or holter monitor in [place] - Also told her to try stopping [...] se Living Status Comments:IUFD, bleeding entire Delivery Location:[facility] 09/17 Term 39w 5d 2.49 kg (5 lb 8 oz) M Vag Lela ng Pastor Complications:None Delivery Location:[facility] 06/29 SAB 6w0 d SPONTANEO US Current Summary Episode Dates Number of Fetuses Estimated Date of Delivery 04/12/2023 - Present (09/16/2023) 10/20/2023 (set by Elizabeth Painter, RN on 04/12/2023 based on Ultrasound on 03/08/2023) Dating Summary Based On FIONA GA Diff Last Menstrual Period on 08/10/2022 05/17/2023 +22w2d Ultrasound on 03/08/2023 10/20/2023 Working GA:7w5d Vitals Pregravid Weight Height TWG (As of 09/16/2023) Pregrav id BMI 1.524 m (5') Date [...] weeks gestation of Z3A.20 2015-20wk IUFD (in [facility], no records)- maternal report sounds like placental abruption 2018- (bedrest, watched for weak uterus, in [facility]) Declined serum screening Detailed US IMPRESSION: Intrauterine [...] needed. Services Provided: Procedures Code DETAIL ANATOMY 81414.0 SCHOOL FRENCH TEACHER Progress Notes - Hospital En counter - 04/12/2023 - GA:12w5d 04/12/2023 - 12w5d - Elizabeth Hallman, RN [place] Physicians Consultation Visit Patient here for consultation due to h/o of IUFD at 19-20 weeks in [facility]. Term following that . Is currently @ 12w5d and complains of nausea and vomiting up to 6x/day. Vaginal pain so severe that it makes it hard to walk. Recent episodes of waking in the middle of the night and unable to catch her breath. Denies chest pain or palpitations. automotive parts interpreter used for entire appointment. Assessment Histories reviewed today include: Past Medical History, Past Surgical History, Social History and Family History and Obstetric History. Refer to the corresponding sections of the history section of [facility] chart and the [facility] Navigator for details. Assessment: Patient's perception of movement: Has not felt movement yet. Normal movement discussed. heart rate observed during brief bedside ultrasound. 130-140s. Preferred delivery location: [facility] Some basic routine education done during assessment. [...] min Elizabeth Painter RN 04/12/2023 1:59 PM SCHOOL FRENCH TEACHER Last Filed Vital Signs Vital Sign Reading Time Taken Comments Blood Pressure 111/71 04/12/2023 2:07 PM HIGH SCHOOL FRENCH TEACHER Pulse 72 04/12/2023 2:07 PM HIGH SCHOOL FRENCH TEACHER Temperature 36.9 ??C (98.5 ??F) 02/25/2022 4:17 PM CD T Respiratory Rate 20 09/13/2019 3:52 PM CDT Oxygen Saturation 98% 08/12/2022 2:38 PM HIGH SCHOOL FRENCH TEACHER Inhaled Oxygen Concentration - - Weight 70.4 kg (155 lb 3.2 oz) 04/12/2023 2:07 P M HIGH SCHOOL FRENCH TEACHER Height 152.4 cm (5') 04/12/2023 2:07 PM HIGH SCHOOL FRENCH TEACHER Body Mass Index 30.31 04/12/2023 2:07 PM HIGH SCHOOL FRENCH TEACHER Plan of Treatment Health Maintenance Due Date [...] HIV-1/O/2, 4TH GENERATION Routine 06/26/2022 3:11 PM HIGH SCHOOL FRENCH TEACHER Encounter for supervision of other normal in first trimester ANTI HCV Routine 02/25/2022 5:28 PM CDT Need for hepatitis C screening test GREENHOUSE ASSISTANT THIN PREP PAP SCREEN IMAGED Routine 12/14/2019 9:00 AM CDT Screening for malignant neoplasm of cervix from Last 3 Months or Most Recently Relevant to Health Maintenance Results * LC HIV-1/O/2, 4TH GENERATION (06/26/2022 3:11 PM HIGH SCHOOL FRENCH TEACHER) Pathologist [facility] HIV Scr 4th Gen Non Reactive Non Reactive 06/30/2022 12:08 PM HIGH SCHOOL FRENCH TEACHER [facility]) Comment: HIV Negative HIV-1/HIV-2 antibodies and HIV-1 p24 antigen were NOT detected. There is no laboratory evidence of HIV infection. Blood BLOOD SPECIMEN / Unknown Venipuncture / Unknown 06/26/2022 3:11 PM HIGH SCHOOL FRENCH TEACHER 06/26/2022 3:15 PM HIGH SCHOOL FRENCH TEACHER Narrative [facility] ([facility] - 06/30/2022 12:08 PM HIGH SCHOOL FRENCH TEACHER Performed at: ??01 - [address] ??[id number] Certified Surgical Tech/First Assistant: Sheldon Castillo MD, Phone: ??[phone] Cami Brunner MD LABORATORY [facility] ([facility]) [address] [place] [address] * ANTI HCV (02/25/2022 5:28 PM CDT) HEPATITIS C ANTIBODY Non-React gely Non-React gely 02/27/2022 3:09 AM CDT [facility] Comment:Antibodies to HCV no t detected; does not exclude the possibility of exposure to HCV. Blood BLOOD SPECIMEN / Unknown Venipuncture / Unknown 02/25/2022 5:28 PM CDT 02/25/2022 5:29 PM CDT Meron Machado MD SEND OUTS [facility] LABORATORY-CENTRAL LABORATORY [address] [place] [address], * GREENHOUSE ASSISTANT THIN PREP PAP SCREEN IMAGED [[id number]] (12/14/2019 9:00 AM CDT) Case Report Gynecologic Cytology Report ? Case: [id number] ? Authorizing Provider: ??Meron Machado MD ? Collected: ? 12/14/2019 0900 ? Ordering Location: ? [facility] ?? Received: ?12/14/2019 0921 ? Clinic ? First Screen: ?Galindo Mccall ? Rescreen: ?Kelly Hansen ? Specimen: ?GREENHOUSE ASSISTANT ThinPrep Vial Screening, Cervical ? 12/20/2019 8:10 AM CDT [facility] INTERPRETATION/ RESULT NEGATIVE FOR INTRAEPITHELIAL LESION OR MALIGNANCY (NIL) (none) 12/20/2019 8:10 AM CDT [facility] [employer] [facility]-C ENTRAL LABORATORY IMEN ADEQUACY Satisfactory for evaluation Endocervical component present 12/20/2019 8:10 AM CDT [facility] [employer] LABORATORYC ENTRAL LABORATORY HPV REQUEST HPV if ASCUS 12/20/2019 8:10 AM CDT [facility] LAB[facility] Date of LMP 09/14/2019 12/20/2019 8:10 AM CDT [facility] [employer] LABORATORY-C ENTRAL LABORATORY Last Pap Date n/a 12/20/2019 8:10 AM CDT [facility] [employer] LABORATORY-C ENTRAL LABORATORY Last Pap Result First Pap/Unknown 8:10 AM CDT [facility] [employer] LABORATORY-C ENTRAL LABORATORY Abnormal Pap or [place] Bx in last 5 years No 12/20/2019 8:10 AM CDT [facility] [employer] LABORATORY-C ENTRAL LABORATORY Menstrual Status Irregular Periods 12/20/2019 8:10 AM CDT [facility] [employer] LABORATORY-C ENTRAL LABORATORY [place] Bx Done Today No 12/20/2019 8:10 AM CDT [facility] [employer] [facility] ENTRAL LABORATORY Additional Information None given 12/20/2019 8:10 AM CDT [facility] [employer] [facility] Comment: Cytology is screened at [facility] [employer] [facility], Central Laboratory - [address], [place] [address] and [facility] Laboratory - [address], [place] [address] [facility] Laboratory - [address] [place] [address] Interpreted at [facility], Central Laboratory - [address], [place] [address] Automated Review Successful 12/20/2019 8:10 AM CDT [facility] [employer] LABORATORY-C ENTRAL LABORATORY Comment:Specimen processed s uccessfully by automated wild oyster harvester device, [employer] Imaging System, [employer] Note The pap test is a [...] and malignant lesions. 12/20/2019 8:10 AM CDT [facility] LABORATORY-C ENTRAL LABORATORY Other (Cervical) Non-Blood / Unknown 12/14/2019 9:00 AM CDT 12/14/2019 9:21 AM CDT Meron Machado MD PATHOLOGY/CYTOLOGY [facility]-CENTRAL LABORATORY [address] [place] [address], [place] from Last 3 Months or Most Recently Relevant to Health Maintenance Care Teams Chemistry Research Assistant Relationship Specialty Start Date End Date Pcp, No . PCP - General 06/19/19 Celi Be CNM [address] [place] [address] Referring Provider Certified Nurse Reinsurance Accountant 03/10/23
== END 2023-09-16 09:16 | disposition home or self-care (01) ==
LOC: US 09:15
PROVIDERS: Visit Provider Obstetrics & Gynecology
DX: Z87.59 Personal history of other complications of pregnancy, childbirth and the puerperium (principal)
CPT/HCPCS: 76819

== ENCOUNTER 2023-09-23 09:10 | Outpatient (CLI) | payer MEDICAID, SELFPAY ==
--- OUTSIDE RECORDS SUMMARY | 2023-09-23 09:12 | XMS_ITS | Clinical Summary ---
Author Name Unknown Organization [employer] [facility] Address [place], [place] [address] Care Team Providers Care Hat Steamer Name Role Phone Pcp, No Primary Care Provider Celi Zapata CN Unavailable [phone] Allergies No known active allergies Medications Medication [...] , currently 04/12/2023 Round ligament pain 04/12/2023 [facility] Supervision of high-risk 3 Overview: Gretta Von : 2000 MPP ULTRASOUND/TESTING PATIENT MPP CONSULT ON 04/12/23 Support person name: Licensed Psychiatric Technician: Yes: Angolan ULTRASOUND TYPE: L2 on 06/03/23 REASON FOR [...] Delivery: 10/20/23. MATERNAL 2016 19-20w IUFD (in [facility], no records available) 2017 40w (bedrest, watched for weak uterus, in [facility]) PREVIOUS ULTRASOUNDS: 06/03/23 L2 03/08/23 7w5d ECHO: REFERRING PHYSICIAN/PHONE/LAST UPDATE: Celi Be [facility] [phone] Primary MD approves scheduling of recommended ultrasounds/testing: Yes SPECIALISTS/CONSULTS: Include: Specialty MD Clinic Name Phone# LV [place] and ADDED TO PATIENT CARE TEAM Yes GENETICS: Declines/Not Done CARE COORDINATION: PERTINENT LABS: Labs reviewed? Yes Normal? Not all labs available Blood type: O Rh Positive Antibody screen: Negative [facility] labs need to be entered in [employer]? Yes PERTINENT MEDS: PROCEDURES: IF FGR <10% or EFW <2000 grams: Add FGRPCOM PLAN OF CARE: Original and updated POC 06/12/22 [place] History of loss at 20 weeks - No records available, labs and pathology unavailable, but maternal report of events is consistent with placental abruption (risk of recurrence 5-10%) - Consider antiphospholipid antibody testing, TSH level in [place] - Recommend detailed anatomy scan at 19 weeks with [facility] - Growth scans q 3- 4 [...] - Recommend ekg or holter monitor in [place] - Also told her to try stopping [...] se Living Status Comments:IUFD, bleeding entire Delivery Location:[facility] 09/17 Term 39w 5d 2.49 kg (5 lb 8 oz) M Vag Lela ng Pastor Complications:None Delivery Location:[facility] 06/29 SAB 6w0 d SPONTANEO US Current Summary Episode Dates Number of Fetuses Estimated Date of Delivery 04/12/2023 - Present (09/23/2023) 10/20/2023 (set by Elizabeth Painter, RN on 04/12/2023 based on Ultrasound on 03/08/2023) Dating Summary Based On FIONA GA Diff Last Menstrual Period on 08/10/2022 05/17/2023 +22w2d Ultrasound on 03/08/2023 10/20/2023 Working GA:7w5d Vitals Pregravid Weight Height TWG (As of 09/23/2023) Pregrav id BMI 1.524 m (5') Date [...] weeks gestation of Z3A.20 2015-20wk IUFD (in [facility], no records)- maternal report sounds like placental abruption 2018- (bedrest, watched for weak uterus, in [facility]) Declined serum screening Detailed US [...] needed. Services Provided: Procedures Code DETAIL ANATOMY 46519.0 HEAR OPERATOR Progress Notes - Hospital En counter - 04/12/2023 - GA:12w5d 04/12/2023 - 12w5d - Elizabeth Hallman, RN [place] Physicians Consultation Visit Patient here for consultation due to h/o of IUFD at 19-20 weeks in [facility]. Term following that . Is currently @ 12w5d and complains of nausea and vomiting up to 6x/day. Vaginal pain so severe that it makes it hard to walk. Recent episodes of waking in the middle of the night and unable to catch her breath. Denies chest pain or palpitations. [employer] rep used for entire appointment. Assessment Histories reviewed today include: Past Medical History, Past Surgical History, Social History and Family History and Obstetric History. Refer to the corresponding sections of the history section of [facility] chart and the [facility] Navigator for details. Assessment: Patient's perception of movement: Has not felt movement yet. Normal movement discussed. heart rate observed during brief bedside ultrasound. 130-140s. Preferred delivery location: [facility] Some basic routine education done during assessment. [...] min Elizabeth Painter RN 04/12/2023 1:59 PM HEAR OPERATOR Last Filed Vital Signs Vital Sign Reading Time Taken Comments Blood Pressure 111/71 04/12/2023 2:07 PM RIPSHEAR OPERATOR Pulse 72 04/12/2023 2:07 PM RIPSHEAR OPERATOR Temperature 36.9 ??C (98.5 ??F) 02/25/2022 4:17 PM CD T Respiratory Rate 20 09/13/2019 3:52 PM CDT Oxygen Saturation 98% 08/12/2022 2:38 PM RIPSHEAR OPERATOR Inhaled Oxygen Concentration - - Weight 70.4 kg (155 lb 3.2 oz) 04/12/2023 2:07 P M RIPSHEAR OPERATOR Height 152.4 cm (5') 04/12/2023 2:07 PM RIPSHEAR OPERATOR Body Mass Index 30.31 04/12/2023 2:07 PM RIPSHEAR OPERATOR Plan of Treatment Health Maintenance Due Date [...] HIV-1/O/2, 4TH GENERATION Routine 06/26/2022 3:11 PM RIPSHEAR OPERATOR Encounter for supervision of other normal in first trimester ANTI HCV Routine 02/25/2022 5:28 PM CDT Need for hepatitis C screening test TRIPLE VALVE MECHANIC THIN PREP PAP SCREEN IMAGED Routine 12/14/2019 9:00 AM CDT Screening for malignant neoplasm of cervix from Last 3 Months or Most Recently Relevant to Health Maintenance Results * LC HIV-1/O/2, 4TH GENERATION (06/26/2022 3:11 PM RIPSHEAR OPERATOR) Pathologist [facility] HIV Scr 4th Gen Non Reactive Non Reactive 06/30/2022 12:08 PM RIPSHEAR OPERATOR [facility]) Comment: HIV Negative HIV-1/HIV-2 antibodies and HIV-1 p24 antigen were NOT detected. There is no laboratory evidence of HIV infection. Blood BLOOD SPECIMEN / Unknown Venipuncture / Unknown 06/26/2022 3:11 PM RIPSHEAR OPERATOR 06/26/2022 3:15 PM RIPSHEAR OPERATOR Narrative [facility] - 06/30/2022 12:08 PM RIPSHEAR OPERATOR Performed at: ??[address] ??[id number] Brass Chaser: Sheldon Castillo MD, Phone: ??[phone] Cami Brunner MD LABORATORY [facility] ([facility]) [address] [place] [address] * ANTI HCV (02/25/2022 5:28 PM CDT) HEPATITIS C ANTIBODY Non-React gely Non-React gely 02/27/2022 3:09 AM CDT [facility] LABORATORY Comment:Antibodies to HCV no t detected; does not exclude the possibility of exposure to HCV. Blood BLOOD SPECIMEN / Unknown Venipuncture / Unknown 02/25/2022 5:28 PM CDT 02/25/2022 5:29 PM CDT Meron Machado MD SEND OUTS [facility] LABORATORY-CENTRAL LABORATORY [address] [place] [address], * TRIPLE VALVE MECHANIC THIN PREP PAP SCREEN IMAGED [[id number]] (12/14/2019 9:00 AM CDT) Case Report Gynecologic Cytology Report ? Case: [id number] ? Authorizing Provider: ??Meron Machado MD ? Collected: ? 12/14/2019 0900 ? Ordering Location: ? [facility] ?? Received: ?12/14/2019 0921 ? Clinic ? First Screen: ?Galindo Mccall ? Rescreen: ?Kelly Hansen ? Specimen: ?TRIPLE VALVE MECHANIC ThinPrep Vial Screening, Cervical ? 12/20/2019 8:10 AM CDT [facility] ENTRAL LABORATORY INTERPRETATION/ RESULT NEGATIVE FOR INTRAEPITHELIAL LESION OR MALIGNANCY (NIL) (none) 12/20/2019 8:10 AM CDT [facility] [employer] [facility] ENTRAL LABORATORY IMEN ADEQUACY Satisfactory for evaluation Endocervical component present 12/20/2019 8:10 AM CDT [facility] [employer] LABORATORYC ENTRAL LABORATORY HPV REQUEST HPV if ASCUS 12/20/2019 8:10 AM CDT [facility] EN[facility]AL LABORATORY Date of LMP 09/14/2019 12/20/2019 8:10 AM CDT [facility] [employer] LABORATORY-C ENTRAL LABORATORY Last Pap Date n/a 12/20/2019 8:10 AM CDT [facility] [employer] LABORATORY-C ENTRAL LABORATORY Last Pap Result First Pap/Unknown 8:10 AM CDT [facility] [employer] LABORATORY-C ENTRAL LABORATORY Abnormal Pap or [place] Bx in last 5 years No 12/20/2019 8:10 AM CDT [facility] [employer] LABORATORY-C ENTRAL LABORATORY Menstrual Status Irregular Periods 12/20/2019 8:10 AM CDT [facility] [employer] LABORATORY-C ENTRAL LABORATORY [place] Bx Done Today No 12/20/2019 8:10 AM CDT [facility] [employer] [facility] ENTRAL LABORATORY Additional Information None given 12/20/2019 8:10 AM CDT [facility] [employer] [facility] Comment: Cytology is screened at [facility] [employer] [facility], Central Laboratory - [address], [place] [address] [facility] Laboratory - [address], [place] [address] and [facility] Laboratory - [address] [place] [address] Interpreted at [facility], Central Laboratory - [address], [place] [address] Automated Review Successful 12/20/2019 8:10 AM CDT [facility] [employer] LABORATORY-C ENTRAL LABORATORY Comment:Specimen processed s uccessfully by automated distribution specialist device, SmartFlow TechnologiesPrep Imaging System, [employer] Note The pap test is a [...] and malignant lesions. 12/20/2019 8:10 AM CDT [facility] LABORATORY-C ENTRAL LABORATORY Other (Cervical) Non-Blood / Unknown 12/14/2019 9:00 AM CDT 12/14/2019 9:21 AM CDT Meron Machado MD PATHOLOGY/CYTOLOGY [facility]-CENTRAL LABORATORY [address] [place] [address], [place] from Last 3 Months or Most Recently Relevant to Health Maintenance Care Teams Hat Steamer Relationship Specialty Start Date End Date Pcp, No . PCP - General 06/19/19 Celi Be CNM [address] [place] [address] Referring Provider Certified Nurse Chimney Mechanic 03/10/23
--- OUTSIDE RECORDS SUMMARY | 2023-09-23 09:12 | XMS_ITS | Data Portability ---
Author Name Unknown Address [address] [place] [address] Phone [phone] Organization [facility] [employer] cindy MYLENELARA OFFICE Address [address] [place] [phone] Assessment No assessment recorded. Plan of Treatment Reminders Order Date Submit Date Provider Last Modified By Organization Details Last Modified Time Details Appointments None recorded . Lab None recorded . Referral None recorded . Procedures None recorded . Surgeries None recorded . Imaging None recorded . Medication Orders Sadia (28) 3 mg-0.02 mg tablet [id number] INTERFACE [facility], [address] [place], [address], 10:40:14 Patient TargetsNo targets recorded. Patient Instructions Encounter Date Encounter Id Patient Instructions Last Modified By Organization Details Last Modified Time 06/11/2021 [id number] May take Ibuprofen/Tylenol prn, ice to arm prn. RTC 3weeks for second dose. [email or web address] Not available 06/11/2021 17:34:20 Reason for Referral None Reported. Problems Name Status Onset Date Resolution Date Notes Provider Name and Address Organization Details Recorded Time Umbilical hernia Active 07/10/19 17 Camila Zamudio NP [address] [place], [address], [facility] [employer] 07/10/2020 10:11:34 Problem Notes None recorded. Procedures Surgical History Date Name Laterality Status Provider Name and Address Organization Details Recorded Time 11/06/2019 Date of Last Pap Smear completed Camila Zamudio NP [address] [place], [address], [facility] [employer] 07/10/2020 10:20:48 Imaging Results None recorded. Procedure [...] Address Organization Details Last Updated DateTime 07/10/2020 73298.22 g 26.4 kg/m2 162.56 cm Camila Zamudio NP [address] [place], [address], [facility] 07/10/2020 10:09:42 Social History Question Answer Notes LastModified by Organizat ion Details LastModified Time Tobacco Smoking Status Never Smoker Camila Zamudio NP [address] [place], [address], [facility] 07/10/2020 10:19:16 What Is Your Level [...] mL dose, esme-sucrose 06/11/2021 completed CHEL DENISE [address] [place] [address], [phone], [facility] 06/11/2021 17:40:47 COVID-19, mRNA, LNP-S, PF, 30 mcg/0.3 mL dose, esme-sucrose 07/02/2021 completed CHEL DENISE [address] [place] [address], [phone], [facility] 07/02/2021 16:48:37 Past Encounters Encounter ID Performer Location Encounter Start Date Encounter Closed Date Diagnosis/Indication Diagnosis SNOMED-CT Code [id number] [facility] [address] [place] [phone] 07/10/2020 09:59:40 07/10/2020 10:54:47 Initial prescription of oral contraception [id number] CHEL DENISE [facility] [address] [place] [phone] 06/11/2021 17:31:36 06/11/2021 20:55:28 Administration of first dose of SARS-CoV-2 mRNA vaccine [id number] CHEL DENISE [facility] [address] [place] [id number] 07/02/2021 16:37:08 07/02/2021 19:40:04 Administration of second dose of SARS-CoV-2 mRNA vaccine [id number] Health Concerns Section Related Observation LastModified by [...] been taking them x 6 months through [facility]. Ran out of pills 07/01/20 Has [...] very low in her uterus Camila Zamudio, MATERIALS DEVELOPMENT ENGINEER [address] [place], [address], [facility] 07/10/2020 10:50:00 06/11/2021 text/html HPI Notes: Requesting Covid 19 vaccine CHEL DENISE [address] [place], [address], [facility] 06/11/2021 17:40:58 07/02/2021 text/html HPI Notes: Requesting Covid 19 vaccine RODNEYCHEL FLETCHER [address] [place], [address], [facility] 07/02/2021 16:48:54 OBGyn Episode No OBEpisode recorded.
--- NOTE | 2023-09-23 09:15 | US_ITS ---
Patient: CLIVE RINCON Facility:?[facility] RIS Patient ID:?[id number] Site Patient ID:?[id number]. Site :?[id number] Study:?US-OB Pelvis OB BPP & F/U GROWTH-09/23/2023 9:54:16 AM Ordering Physician:?JAMES BLANDON M.D. Final Report: INDICATION: Personal history of other complications in TECHNIQUE: Real time snyder scale imaging of the fetus was performed. COMPARISON: 09/16/2023 FINDINGS: Sonographic imaging demonstrates a single living intrauterine gestation. Fetus demonstrates a regular cardiac rate of 127 beats per minute. Fetus has a vertex position. The placenta lies right anterior. Amniotic fluid volume appears normal and there is a single deepest pocket of 4.3 cm. The estimated weight is 2734gm which lies at the 38th %. On the prior OB ultrasound dated 08/26/2023 the estimated weight was at the 48th percentile. BPD 50th percentile. HC 31st percentile. AC 68th percentile. FL 3rd percentile. The fetus was active and demonstrated normal breathing movements. There was normal flexion and extension of the trunk and extremities. IMPRESSION: Normal biophysical profile score 8/8. Sonographic gestational age 35 weeks 5 days and sonographic due date of 10/23/2023. Good correlation with dates. Normal interval growth. Estimated weight 38th percentile. Abdominal circumference 68th percentile Dictated by Manish More MD @ 09/23/2023 10:14:04 AM Signed by:?Manish More MD @09/23/2023 10:14:04 AM (Electronic Signature)
== END 2023-09-23 09:11 | disposition home or self-care (01) ==
LOC: US 09:10
PROVIDERS: Visit Provider Obstetrics & Gynecology
DX: Z87.59 Personal history of other complications of pregnancy, childbirth and the puerperium (principal); Z3A.35 35 weeks gestation of pregnancy
CPT/HCPCS: 76816; 76819; 87081; 87653

== ENCOUNTER 2023-09-24 19:05 | Outpatient (CLI) | payer MEDICAID, SELFPAY ==
--- OUTSIDE RECORDS SUMMARY | 2023-09-24 19:08 | XMS_ITS | Data Portability ---
Author Name Unknown Address [address] [place] [address] Phone [phone] Organization [facility] [employer] cindy MYLENELARA OFFICE Address [address] [place] [phone] Assessment No assessment recorded. Plan of Treatment Reminders Order Date Submit Date Provider Last Modified By Organization Details Last Modified Time Details Appointments None recorded . Lab None recorded . Referral None recorded . Procedures None recorded . Surgeries None recorded . Imaging None recorded . Medication Orders Sadia (28) 3 mg-0.02 mg tablet [id number] [id number] INTERFACE [facility], [address] [place], [address], 10:40:14 Patient TargetsNo targets recorded. Patient Instructions Encounter Date Encounter Id Patient Instructions Last Modified By Organization Details Last Modified Time 06/11/2021 [id number] May take Ibuprofen/Tylenol prn, ice to arm prn. RTC 3weeks for second dose. [email or web address] Not available 06/11/2021 17:34:20 Reason for Referral None Reported. Problems Name Status Onset Date Resolution Date Notes Provider Name and Address Organization Details Recorded Time Umbilical hernia Active 07/10/19 17 Camila Zamudio NP [address] [place], [address], [facility] [employer] 07/10/2020 10:11:34 Problem Notes None recorded. Procedures Surgical History Date Name Laterality Status Provider Name and Address Organization Details Recorded Time 11/06/2019 Date of Last Pap Smear completed Camila Zamudio NP [address] [place], [address], [facility] [employer] 07/10/2020 10:20:48 Imaging Results None recorded. Procedure [...] Address Organization Details Last Updated DateTime 07/10/2020 38630.22 g 26.4 kg/m2 162.56 cm Camila Zamudio NP [address] [place], [address], [facility] 07/10/2020 10:09:42 Social History Question Answer Notes LastModified by Organizat ion Details LastModified Time Tobacco Smoking Status Never Smoker Camila Zamudio NP [address] [place], [address], [facility] 07/10/2020 10:19:16 What Is Your Level Of [...] mL dose, esme-sucrose 06/11/2021 completed CHEL DENISE [address] [place] [address], [phone], [facility] [employer] [facility] 06/11/2021 17:40:47 COVID-19, mRNA, LNP-S, PF, 30 mcg/0.3 mL dose, esme-sucrose 07/02/2021 completed CHEL DENISE [address] [place] [address], [phone], [facility] [employer] [facility] 07/02/2021 16:48:37 Past Encounters Encounter ID Performer Location Encounter Start Date Encounter Closed Date Diagnosis/Indication Diagnosis SNOMED-CT Code [id number] [facility] [address] [place] [phone] 07/10/2020 09:59:40 07/10/2020 10:54:47 Initial prescription of oral contraception [id number] CHEL DENISE [facility] [address] [place] [phone] 06/11/2021 17:31:36 06/11/2021 20:55:28 Administration of first dose of SARS-CoV-2 mRNA vaccine [id number] CHEL DENISE [facility] [address] [place] [phone] 07/02/2021 16:37:08 07/02/2021 19:40:04 Administration of second dose of SARS-CoV-2 mRNA vaccine [id number] Health Concerns Section Related Observation LastModified by [...] been taking them x [address] [facility]. Ran out of pills 07/01/20 [...] very low in her uterus Camila Zamudio, GLOBAL DIRECTOR AIR AND [employer]IMATE CHANGE [address] [place], [address], [facility] 07/10/2020 10:50:00 06/11/2021 text/html HPI Notes: Requesting Covid 19 vaccine CHEL DENISE [address] [place], [address], [facility] 06/11/2021 17:40:58 07/02/2021 text/html HPI Notes: Requesting Covid 19 vaccine RODNEYCHEL FLETCHER [address] [place], [address], [facility] 07/02/2021 16:48:54 OBGyn Episode No OBEpisode recorded.
--- OUTSIDE RECORDS SUMMARY | 2023-09-24 19:08 | XMS_ITS | Clinical Summary ---
Author Name Unknown Organization [email or web address] Address [place], [place] [address] Care Team Providers Care Software Design Analyst Name Role Phone Pcp, No Primary Care Provider Celi Zapata CN Unavailable [phone] Allergies No known active allergies Medications Medication [...] , currently 04/12/2023 Round ligament pain 04/12/2023 [facility] Supervision of high-risk 3 Overview: Gretta Von : 2000 MPP ULTRASOUND/TESTING PATIENT MPP CONSULT ON 04/12/23 Support person name: Conservation Engineer: Yes: [place] ULTRASOUND TYPE: L2 on 06/03/23 REASON FOR [...] Delivery: 10/20/23. MATERNAL 2016 19-20w IUFD (in [facility], no records available) 2017 40w (bedrest, watched for weak uterus, in [facility]) PREVIOUS ULTRASOUNDS: 06/03/23 L2 03/08/23 7w5d ECHO: REFERRING PHYSICIAN/PHONE/LAST UPDATE: Celi Be [facility] [phone] Primary MD approves scheduling of recommended ultrasounds/testing: Yes SPECIALISTS/CONSULTS: Include: Specialty MD Clinic Name Phone# [place] and ADDED TO PATIENT CARE TEAM Yes GENETICS: Declines/Not Done CARE COORDINATION: PERTINENT LABS: Labs reviewed? Yes Normal? Not all labs available Blood type: O Rh Positive Antibody screen: Negative Non-[facility] labs need to be entered in [employer]? Yes PERTINENT MEDS: PROCEDURES: IF FGR <10% or EFW <2000 grams: Add FGRPCOM PLAN OF CARE: Original and updated POC 06/12/22 [place] History of loss at 20 weeks - No records available, labs and pathology unavailable, but maternal report of events is consistent with placental abruption (risk of recurrence 5-10%) - Consider antiphospholipid antibody testing, TSH level in [place] - Recommend detailed anatomy scan at 19 weeks with [facility] - Growth scans q 3- 4 [...] - Recommend ekg or holter monitor in [place] - Also told her to try stopping [...] se Living Status Comments:IUFD, bleeding entire Delivery Location:[facility] 09/17 Term 39w 5d 2.49 kg (5 lb 8 oz) M Vag Lela ng Pastor Complications:None Delivery Location:[facility] 06/29 SAB 6w0 d SPONTANEO US Current Summary Episode Dates Number of Fetuses Estimated Date of Delivery 04/12/2023 - Present (09/24/2023) 10/20/2023 (set by Elizabeth Painter, RN on 04/12/2023 based on Ultrasound on 03/08/2023) Dating Summary Based On FIONA GA Diff Last Menstrual Period on 08/10/2022 05/17/2023 +22w2d Ultrasound on 03/08/2023 10/20/2023 Working GA:7w5d Vitals Pregravid Weight Height TWG (As of 09/24/2023) Pregrav id BMI 1.524 m (5') Date [...] weeks gestation of Z3A.20 2015-20wk IUFD (in [facility], no records)- maternal report sounds like placental abruption 2018- (bedrest, watched for weak uterus, in [facility]) Declined serum screening Detailed US IMPRESSION: [...] needed. Services Provided: Procedures Code DETAIL ANATOMY 24080.0 RAFT STRUCTURAL FITTER Progress Notes - Hospital En counter - 04/12/2023 - GA:12w5d 04/12/2023 - 12w5d - Elizabeth Hallman, RN [place] [facility] Consultation Visit Patient here for consultation due to h/o of IUFD at 19-20 weeks in [facility]. Term following that . Is currently @ 12w5d and complains of nausea and vomiting up to 6x/day. Vaginal pain so severe that it makes it hard to walk. Recent episodes of waking in the middle of the night and unable to catch her breath. Denies chest pain or palpitations. foot roentgenologist used for entire appointment. Assessment Histories reviewed today include: Past Medical History, Past Surgical History, Social History and Family History and Obstetric History. Refer to the corresponding sections of the history section of [facility] chart and the [facility] Navigator for details. Assessment: Patient's perception of movement: Has not felt movement yet. Normal movement discussed. heart rate observed during brief bedside ultrasound. 130-140s. Preferred delivery location: [facility] Some basic routine education done during assessment. [...] min Elizabeth Painter RN 04/12/2023 1:59 PM RAFT STRUCTURAL FITTER Last Filed Vital Signs Vital Sign Reading Time Taken Comments Blood Pressure 111/71 04/12/2023 2:07 PM AIRCRAFT STRUCTURAL FITTER Pulse 72 04/12/2023 2:07 PM AIRCRAFT STRUCTURAL FITTER Temperature 36.9 ??C (98.5 ??F) 02/25/2022 4:17 PM CD T Respiratory Rate 20 09/13/2019 3:52 PM CDT Oxygen Saturation 98% 08/12/2022 2:38 PM AIRCRAFT STRUCTURAL FITTER Inhaled Oxygen Concentration - - Weight 70.4 kg (155 lb 3.2 oz) 04/12/2023 2:07 P M AIRCRAFT STRUCTURAL FITTER Height 152.4 cm (5') 04/12/2023 2:07 PM AIRCRAFT STRUCTURAL FITTER Body Mass Index 30.31 04/12/2023 2:07 PM AIRCRAFT STRUCTURAL FITTER Plan of Treatment Health Maintenance Due Date [...] HIV-1/O/2, 4TH GENERATION Routine 06/26/2022 3:11 PM AIRCRAFT STRUCTURAL FITTER Encounter for supervision of other normal in first trimester ANTI HCV Routine 02/25/2022 5:28 PM CDT Need for hepatitis C screening test ACUTE SPECIALIST THIN PREP PAP SCREEN IMAGED Routine 12/14/2019 9:00 AM CDT Screening for malignant neoplasm of cervix from Last 3 Months or Most Recently Relevant to Health Maintenance Results * LC HIV-1/O/2, 4TH GENERATION (06/26/2022 3:11 PM AIRCRAFT STRUCTURAL FITTER) Pathologist [facility] HIV Scr 4th Gen Non Reactive Non Reactive 06/30/2022 12:08 PM AIRCRAFT STRUCTURAL FITTER [facility]) Comment: HIV Negative HIV-1/HIV-2 antibodies and HIV-1 p24 antigen were NOT detected. There is no laboratory evidence of HIV infection. Blood BLOOD SPECIMEN / Unknown Venipuncture / Unknown 06/26/2022 3:11 PM AIRCRAFT STRUCTURAL FITTER 06/26/2022 3:15 PM AIRCRAFT STRUCTURAL FITTER Narrative [facility] - 06/30/2022 12:08 PM AIRCRAFT STRUCTURAL FITTER Performed at: ??[address] ??[id number] [employer] Feeder: Sheldon Castillo MD, Phone: ??[phone] Cami Brunner MD LABORATORY [facility] ([facility]) [address] [place] [address] * ANTI HCV (02/25/2022 5:28 PM CDT) HEPATITIS C ANTIBODY Non-React gely Non-React gely 02/27/2022 3:09 AM CDT [facility] Comment:Antibodies to HCV no t detected; does not exclude the possibility of exposure to HCV. Blood BLOOD SPECIMEN / Unknown Venipuncture / Unknown 02/25/2022 5:28 PM CDT 02/25/2022 5:29 PM CDT Meron Machado MD SEND OUTS [facility]AL LABORATORY [address] [place] [address], * ACUTE SPECIALIST THIN PREP PAP SCREEN IMAGED [[id number]] (12/14/2019 9:00 AM CDT) Case Report Gynecologic Cytology Report ? Case: [id number] ? Authorizing Provider: ??Meron Machado MD ? Collected: ? 12/14/2019 0900 ? Ordering Location: ? [facility] ?? Received: ?12/14/2019 0921 ? Clinic ? First Screen: ?Galindo Mccall ? Rescreen: ?Kelly Hansen ? Specimen: ?ACUTE SPECIALIST ThinPrep Vial Screening, Cervical ? 12/20/2019 8:[address] [facility] INTERPRETATION/ RESULT NEGATIVE FOR INTRAEPITHELIAL LESION OR MALIGNANCY (NIL) (none) 12/20/2019 8:10 AM CDT [facility] ENTRAL LABORATORY IMEN ADEQUACY Satisfactory for evaluation Endocervical component present 12/20/2019 8:10 AM CDT [facility] ENTRAL LABORATORY HPV REQUEST HPV if ASCUS 12/20/2019 8:[address] [facility] Date of LMP 09/14/2019 12/20/2019 8:10 AM CDT [facility] LABORATORY-C ENTRAL LABORATORY Last Pap Date n/a 12/20/2019 8:10 AM CDT [facility] LABORATORY-C ENTRAL LABORATORY Last Pap Result First Pap/Unknown 8:10 AM CDT [facility] LABORATORY-C ENTRAL LABORATORY Abnormal Pap or Zap Bx in last 5 years No 12/20/2019 8:10 AM CDT [facility] LABORAT[facility]-C ENTRAL LABORATORY Menstrual Status Irregular Periods 12/20/2019 8:10 AM CDT [facility] LABORATORY-C ENTRAL LABORATORY Zap Bx Done Today No 12/20/2019 8:10 AM CDT [facility] ENTRAL LABORATORY Additional Information None given 12/20/2019 8:10 AM CDT [facility] Comment: Cytology is screened at [facility] [employer] [facility], Central Laboratory - [address], [place] [address] and [facility] Laboratory - [address], [place] [address] and [facility] Laboratory - [address] [place] [address] Interpreted at [facility], Central Laboratory - [address], [place] [address] Automated Review Successful 12/20/2019 8:10 AM CDT [facility] LABORATORY-C ENTRAL LABORATORY Comment:Specimen processed s uccessfully by automated publishing editor device, [employer] Imaging System, [employer] Note The pap test is a [...] malignant lesions. 12/20/2019 8:10 AM CDT [facility] LABOR[facility]-C ENTRAL LABORATORY Other (Cervical) Non-Blood / Unknown 12/14/2019 9:00 AM CDT 12/14/2019 9:21 AM CDT Meron Machado MD PATHOLOGY/CYTOLOGY [facility]AL LABORATORY [address] [place] [address], [place] from Last 3 Months or Most Recently Relevant to Health Maintenance Care Teams Software Design Analyst Relationship Specialty Start Date End Date Pcp, No . PCP - General 06/19/19 Celi Be CNM [address] [place] [address] Referring Provider Certified Nurse Corking Machine Operator 03/10/23
[2023-09-24 20:02] VITALS: BP 97/52; PULSE 77
[2023-09-24 20:03] VITALS: RESP 16; TEMP 36.7
[2023-09-24 20:15] LABS: Appearance Urine Clear (Clear); Bilirubin Urine Negative (Negative); Blood Urine Negative (Negative); Color Urine Yellow (Yellow); Glucose Urine Negative (Negative); Ketones Urine 2+ (Negative); Leukocyte Esterase Urine 2+ (Negative); Nitrite Urine Negative (Negative); Protein Urine Negative (Negative); Specific Gravity Urine 1.015 (1.000-1.030); Urobilinogen Urine 0.2 (0.2-1.0)
[2023-09-24 20:22] LABS: Bacteria Urine Moderate; RBC Urine 0-2 (0-2); Squamous Epithelial Cell Urine Moderate (None-Few)
[2023-09-24 20:25] LABS: Amnisure Rom* Negative
[2023-09-24 20:52] LABS: Clue Cells >20% Clue Cells Seen (None Seen); Trichomonas No Trichomonas Seen (None Seen); Yeast Yeast Seen (None Seen)
--- NOTE | 2023-09-24 23:21 | PC.OBNST ---
NST Note NST Note Start: 09/24/23 19:12 Freq: ONCE Status: Active Protocol: Document 09/24/23 23:18 CHER (Rec: 09/24/23 23:19 CHER [id number]) NST Note 4 Para (# of births) 1 EDC 10/20/23 Gestational Age In Weeks & Days 36 Weeks & 2 Days Patient Presented with Complaint(s) of Contractions/cramping, Decreased movement Reactive Yes Appropriate for Gestational Age Yes CHARU Douglas, RN Date 09/24/23 Reactive Yes Appropriate for Gestational Age Yes CHARU Mullins, CHARU Date 09/24/23 OB NST charge Yes Complete NST Note via Write Note Yes The provider's electronic signature indicates the NST is reactive/appropriate for gestational age. *Note to provider: If an addendum is required, open the patient's chart and click on the note under the Nurse/Allied Health tab.
== END 2023-09-24 21:50 | disposition home or self-care (01) ==
LOC: OB OUT 19:07 → OB 19:08
PROVIDERS: Visit Provider Obstetrics & Gynecology
DX: O47.03 False labor before 37 completed weeks of gestation, third trimester (principal); O36.8130 Decreased fetal movements, third trimester, not applicable or unspecified; Z3A.36 36 weeks gestation of pregnancy
CPT/HCPCS: 59025; 81001; 81003; 84112; 87086; 87210; G0463

== ENCOUNTER 2023-09-30 08:34 | Outpatient (CLI) | payer MEDICAID, SELFPAY ==
--- OUTSIDE RECORDS SUMMARY | 2023-09-30 08:36 | XMS_ITS | Clinical Summary ---
Author Name Unknown Organization [facility] Address [place], [place] [address] Care Team Providers Care Senior Game Advisor Name Role Phone Pcp, No Primary Care Provider Celi Zapata CN Unavailable [phone] Allergies No known active allergies Medications Medication [...] currently 04/12/2023 Round ligament pain 04/12/2023 [facility] Supervision of high-risk 3 Overview: Gretta Von : 2000 MPP ULTRASOUND/TESTING PATIENT MPP CONSULT ON 04/12/23 Support person name: Equipment Operation Instructor: Yes: Colombian ULTRASOUND TYPE: L2 on 06/03/23 REASON FOR [...] Delivery: 10/20/23. MATERNAL 2016 19-20w IUFD (in [facility], no records available) 2017 40w (bedrest, watched for weak uterus, in [facility]) PREVIOUS ULTRASOUNDS: 06/03/23 L2 03/08/23 7w5d ECHO: REFERRING PHYSICIAN/PHONE/LAST UPDATE: Celi Be [facility] [phone] Primary MD approves scheduling of recommended ultrasounds/testing: Yes SPECIALISTS/CONSULTS: Include: Specialty MD Clinic Name Phone# [place] and ADDED TO PATIENT CARE TEAM Yes GENETICS: Declines/Not Done CARE COORDINATION: PERTINENT LABS: Labs reviewed? Yes Normal? Not all labs available Blood type: O Rh Positive Antibody screen: Negative Non-[facility] labs need to be entered in [facility]? Yes PERTINENT MEDS: PROCEDURES: IF FGR <10% or EFW <2000 grams: Add FGRPCOM PLAN OF CARE: Original and updated POC 06/12/22 [place] History of loss at 20 weeks - No records available, labs and pathology unavailable, but maternal report of events is consistent with placental abruption (risk of recurrence 5-10%) - Consider antiphospholipid antibody testing, TSH level in [place] - Recommend detailed anatomy scan at [address] [facility] - Growth scans q 3- 4 weeks [...] - Recommend ekg or holter monitor in porter corners - Also told her to try stopping [...] se Living Status Comments:IUFD, bleeding entire Delivery Location:[facility] 09/17 Term 39w 5d 2.49 kg (5 lb 8 oz) M Vag Lela ng Pastor Complications:None Delivery Location:[facility] 06/29 SAB 6w0 d SPONTANEO US Current Summary Episode Dates Number of Fetuses Estimated Date of Delivery 04/12/2023 - Present (09/30/2023) 10/20/2023 (set by Elizabeth Painter, RN on 04/12/2023 based on Ultrasound on 03/08/2023) Dating Summary Based On FIONA GA Diff Last Menstrual Period on 08/10/2022 05/17/2023 +22w2d Ultrasound on 03/08/2023 10/20/2023 Working GA:7w5d Vitals Pregravid Weight Height TWG (As of 09/30/2023) Pregrav id BMI 1.524 m (5') Date [...] weeks gestation of Z3A.20 2015-20wk IUFD (in [facility], no records)- maternal report sounds like placental abruption 2018- (bedrest, watched for weak uterus, in [facility]) Declined serum screening Detailed US IMPRESSION: [...] needed. Services Provided: Procedures Code DETAIL ANATOMY 82540.0 LRY ESTIMATOR Progress Notes - Hospital En counter - 04/12/2023 - GA:12w5d 04/12/2023 - 12w5d - Elizabeth Hallman, RN [place] [facility] Consultation Visit Patient here for consultation due to h/o of IUFD at 19-20 weeks in [facility]. Term following that . Is currently @ 12w5d and complains of nausea and vomiting up to 6x/day. Vaginal pain so severe that it makes it hard to walk. Recent episodes of waking in the middle of the night and unable to catch her breath. Denies chest pain or palpitations. glass forming engineer used for entire appointment. Assessment Histories reviewed today include: Past Medical History, Past Surgical History, Social History and Family History and Obstetric History. Refer to the corresponding sections of the history section of [facility] chart and the [facility] Navigator for details. Assessment: Patient's perception [...] min Elizabeth Painter RN 04/12/2023 1:59 PM LRY ESTIMATOR Last Filed Vital Signs Vital Sign Reading Time Taken Comments Blood Pressure 111/71 04/12/2023 2:07 PM JEWELRY ESTIMATOR Pulse 72 04/12/2023 2:07 PM JEWELRY ESTIMATOR Temperature 36.9 ??C (98.5 ??F) 02/25/2022 4:17 PM CD T Respiratory Rate 20 09/13/2019 3:52 PM CDT Oxygen Saturation 98% 08/12/2022 2:38 PM JEWELRY ESTIMATOR Inhaled Oxygen Concentration - - Weight 70.4 kg (155 lb 3.2 oz) 04/12/2023 2:07 P M JEWELRY ESTIMATOR Height 152.4 cm (5') 04/12/2023 2:07 PM JEWELRY ESTIMATOR Body Mass Index 30.31 04/12/2023 2:07 PM JEWELRY ESTIMATOR Plan of Treatment Health Maintenance Due Date [...] HIV-1/O/2, 4TH GENERATION Routine 06/26/2022 3:11 PM JEWELRY ESTIMATOR Encounter for supervision of other normal in first trimester ANTI HCV Routine 02/25/2022 5:28 PM CDT Need for hepatitis C screening test TIE HACKER THIN PREP PAP SCREEN IMAGED Routine 12/14/2019 9:00 AM CDT Screening for malignant neoplasm of cervix from Last 3 Months or Most Recently Relevant to Health Maintenance Results * LC HIV-1/O/2, 4TH GENERATION (06/26/2022 3:11 PM JEWELRY ESTIMATOR) Pathologist [facility] HIV Scr 4th Gen Non Reactive Non Reactive 06/30/2022 12:08 PM JEWELRY ESTIMATOR [facility] ([facility]) Comment: HIV Negative HIV-1/HIV-2 antibodies and HIV-1 p24 antigen were NOT detected. There is no laboratory evidence of HIV infection. Blood BLOOD SPECIMEN / Unknown Venipuncture / Unknown 06/26/2022 3:11 PM JEWELRY ESTIMATOR 06/26/2022 3:15 PM JEWELRY ESTIMATOR Narrative [facility] ([facility]) - 06/30/2022 12:08 PM JEWELRY ESTIMATOR Performed at: ??[address] ??[id number] Permit Coordinator: Sheldon Castillo MD, Phone: ??[phone] Cami Brunner MD LABORATORY [facility] ([facility]) [address] [place] [address] * ANTI HCV (02/25/2022 5:28 PM CDT) HEPATITIS C ANTIBODY Non-React gely Non-React gely 02/27/2022 3:09 AM CDT [facility] Comment:Antibodies to HCV no t detected; does not exclude the possibility of exposure to HCV. Blood BLOOD SPECIMEN / Unknown Venipuncture / Unknown 02/25/2022 5:28 PM CDT 02/25/2022 5:29 PM CDT Meron Machado MD SEND OUTS [facility]-CENTRAL LABORATORY [address] [place] [address], * TIE HACKER THIN PREP PAP SCREEN IMAGED [[id number]] (12/14/2019 9:00 AM CDT) Case Report Gynecologic Cytology Report ? Case: [id number] ? Authorizing Provider: ??Meron Machado MD ? Collected: ? 12/14/2019 0900 ? Ordering Location: ? [facility] ?? Received: ?12/14/2019 0921 ? Clinic ? First Screen: ?Galindo Mccall ? Rescreen: ?Kelly Hansen ? Specimen: ?TIE HACKER ThinPrep Vial Screening, Cervical ? 12/20/2019 8:10 AM CDT [facility] INTERPRETATION/ RESULT NEGATIVE FOR INTRAEPITHELIAL LESION OR MALIGNANCY (NIL) (none) 12/20/2019 8:10 AM CDT [facility] [employer] [facility]-C ENTRAL LABORATORY IMEN ADEQUACY Satisfactory for evaluation Endocervical component present 12/20/2019 8:10 AM CDT [facility] [employer] LABORATORYC ENTRAL LABORATORY HPV REQUEST HPV if ASCUS 12/20/2019 8:10 AM CDT [facility] Date of LMP 09/14/2019 12/20/2019 8:10 AM CDT [facility] LABORATORY-C ENTRAL LABORATORY Last Pap Date n/a 12/20/2019 8:10 AM CDT [facility] [employer] LABORATORY-C ENTRAL LABORATORY Last Pap Result First Pap/Unknown 8:10 AM CDT [facility] LABORATORY-C ENTRAL LABORATORY Abnormal Pap or Wheelwright Bx in last 5 years No 12/20/2019 8:10 AM CDT [facility] LABORATORY-C ENTRAL LABORATORY Menstrual Status Irregular Periods 12/20/2019 8:10 AM CDT [facility] LABORATORY-C ENTRAL LABORATORY Wheelwright Bx Done Today No 12/20/2019 8:10 AM CDT [facility] [employer] [facility]-C ENTRAL LABORATORY Additional Information None given 12/20/2019 8:10 AM CDT [facility] Comment: Cytology is screened at [facility], Central Laboratory - [address], [place] [address] and [facility] - [address], [place] [address] [facility] - [address] [place] [address] Interpreted at [facility], Central Laboratory - [address], [place] [address] Automated Review Successful 12/20/2019 8:10 AM CDT [facility] [employer] LABORATORY-C ENTRAL LABORATORY Comment:Specimen processed s uccessfully by automated cloth worker device, [employer] System, [employer] Note The pap test is a [...] and malignant lesions. 12/20/2019 8:10 AM CDT [facility] LABORATORY-C ENTRAL LABORATORY Other (Cervical) Non-Blood / Unknown 12/14/2019 9:00 AM CDT 12/14/2019 9:21 AM CDT Meron Machado MD PATHOLOGY/CYTOLOGY [facility]-CENTRAL LABORATORY [address] [place] [address], [place] from Last 3 Months or Most Recently Relevant to Health Maintenance Care Teams Senior Game Advisor Relationship Specialty Start Date End Date Pcp, No . PCP - General 06/19/19 Celi Be CNM [address] [place] [address] Referring Provider Certified Nurse Fittings Tightener 03/10/23
--- OUTSIDE RECORDS SUMMARY | 2023-09-30 08:36 | XMS_ITS | Data Portability ---
Author Name Unknown Address [address] [place] [address] Phone [phone] Organization [facility] [employer] cindy MYLENELARA OFFICE Address [address] [place] [phone] Assessment No assessment recorded. Plan of Treatment Reminders Order Date Submit Date Provider Last Modified By Organization Details Last Modified Time Details Appointments None recorded . Lab None recorded . Referral None recorded . Procedures None recorded . Surgeries None recorded . Imaging None recorded . Medication Orders Sadia (28) 3 mg-0.02 mg tablet [id number] INTERFACE [facility], [address] [place], [address], 10:40:14 Patient TargetsNo targets recorded. Patient Instructions Encounter Date Encounter Id Patient Instructions Last Modified By Organization Details Last Modified Time 06/11/2021 [id number] May take Ibuprofen/Tylenol prn, ice to arm prn. RTC 3weeks for second dose. [email or web address] Not available 06/11/2021 17:34:20 Reason for Referral None Reported. Problems Name Status Onset Date Resolution Date Notes Provider Name and Address Organization Details Recorded Time Umbilical hernia Active 07/10/19 17 Camila Zamudio NP [address] [place], [address], [facility] [employer] 07/10/2020 10:11:34 Problem Notes None recorded. Procedures Surgical History Date Name Laterality Status Provider Name and Address Organization Details Recorded Time 11/06/2019 Date of Last Pap Smear completed Camila Zamudio NP [address] [place], [address], [facility] [employer] 07/10/2020 10:20:48 Imaging Results None recorded. Procedure [...] Address Organization Details Last Updated DateTime 07/10/2020 51981.22 g 26.4 kg/m2 162.56 cm Camila Zamudio NP [address] [place], [address], [facility] 07/10/2020 10:09:42 Social History Question Answer Notes LastModified by Organizat ion Details LastModified Time Tobacco Smoking Status Never Smoker Camila Zamudio NP [address] [place], [address], [facility] 07/10/2020 10:19:16 What Is Your Level Of [...] mL dose, esme-sucrose 06/11/2021 completed CHEL DENISE [address] [place] [address], [phone], [facility] [employer] [facility] 06/11/2021 17:40:47 COVID-19, mRNA, LNP-S, PF, 30 mcg/0.3 mL dose, esme-sucrose 07/02/2021 completed CHEL DENISE [address] [place] [address], [phone], [facility] [employer] [facility] 07/02/2021 16:48:37 Past Encounters Encounter ID Performer Location Encounter Start Date Encounter Closed Date Diagnosis/Indication Diagnosis SNOMED-CT Code [id number] [facility]ila [facility]udio [facility] [address] [place] [id number] 07/10/2020 09:59:40 07/10/2020 10:54:47 Initial prescription of oral contraception [id number] CHEL DENISE [place] [facility] [address] [place] [phone] 06/11/2021 17:31:36 06/11/2021 20:55:28 Administration of first dose of SARS-CoV-2 mRNA vaccine [id number] CHEL DENISE [place] [facility] [address] [place] [phone] 07/02/2021 16:37:08 07/02/2021 19:40:04 Administration of second dose of SARS-CoV-2 mRNA vaccine [id number] Health Concerns Section Related Observation LastModified by [...] been taking them x 6 months through [facility] Planning. Ran out of pills 07/01/20 Has [...] very low in her uterus Camila Zamudio, CHIEF CATALYST OPERATOR [address] [place], [address], [facility] 07/10/2020 10:50:00 06/11/2021 text/html HPI Notes: Requesting Covid 19 vaccine CHEL DENISE [address] [place], [address], [facility] 06/11/2021 17:40:58 07/02/2021 text/html HPI Notes: Requesting Covid 19 vaccine RODNEYCHEL FLETCHER [address] [place], [address], [facility] 07/02/2021 16:48:54 OBGyn Episode No OBEpisode recorded.
--- NOTE | 2023-09-30 08:45 | US_ITS ---
Patient: CLIVE RINCON Facility:?[facility] Patient ID:?[id number] Site Patient ID:?[id number]. Site :?2000 Study:?US-OB Pelvis OB BPP-09/30/2023 9:29:49 AM Ordering Physician:?JAMES BLANDON M.D. Final Report: INDICATION: Personal history of other complications in TECHNIQUE: Limited transabdominal two-dimensional snyder-scale ultrasound examination. COMPARISON: 09/23/2023 FINDINGS: There is a living fetus in cephalic lie with gestational age of 37 weeks 1 day and EDC of 10/20/2023. The biophysical profile score is 8/8. The heart rate is measured at 126 beats per minute and the rhythm appears regular. The amniotic fluid volume is within normal limits with single deepest pocket of 4.7 cm. The placenta is anterior and superior to the cervical os. There is no evidence of previa. IMPRESSION: 1. Living fetus in cephalic lie with gestational age of 37 weeks 1 day and EDC of 10/20/2023. 2. Biophysical profile score is 8/8. Dictated by Dell Bueno MD @ 10/01/2023 8:57:34 AM Signed by:?Dell Bueno MD @10/01/2023 8:57:34 AM (Electronic Signature)
== END 2023-09-30 08:35 | disposition home or self-care (01) ==
LOC: US 08:35
PROVIDERS: Visit Provider Obstetrics & Gynecology
DX: Z87.59 Personal history of other complications of pregnancy, childbirth and the puerperium (principal); Z3A.37 37 weeks gestation of pregnancy
CPT/HCPCS: 76819; T1013

== ENCOUNTER 2023-10-07 09:04 | Outpatient (CLI) | payer MEDICAID, SELFPAY ==
--- OUTSIDE RECORDS SUMMARY | 2023-10-07 09:05 | XMS_ITS | Data Portability ---
Author Name Unknown Address [address] [place] [address] Phone [phone] Organization [facility] cindy MYLENELARA OFFICE Address [address] [place] [phone] Assessment No assessment recorded. Plan of Treatment Reminders Order Date Submit Date Provider Last Modified By Organization Details Last Modified Time Details Appointments None recorded . Lab None recorded . Referral None recorded . Procedures None recorded . Surgeries None recorded . Imaging None recorded . Medication Orders Sadia (28) 3 mg-0.02 mg tablet [id number] [id number] INTERFACE [facility], [address] [place], [address], 10:40:14 Patient TargetsNo targets recorded. Patient Instructions Encounter Date Encounter Id Patient Instructions Last Modified By Organization Details Last Modified Time 06/11/2021 [id number] May take Ibuprofen/Tylenol prn, ice to arm prn. RTC 3weeks for second dose. [email or web address] Not available 06/11/2021 17:34:20 Reason for Referral None Reported. Problems Name Status Onset Date Resolution Date Notes Provider Name and Address Organization Details Recorded Time Umbilical hernia Active 07/10/19 17 Camila Zamudio NP [address] [place], [address], [facility] [employer] 07/10/2020 10:11:34 Problem Notes None recorded. Procedures Surgical History Date Name Laterality Status Provider Name and Address Organization Details Recorded Time 11/06/2019 Date of Last Pap Smear completed Camila Zamudio NP [address] [place], [address], [facility] [employer] 07/10/2020 10:20:48 Imaging Results None recorded. Procedure [...] Address Organization Details Last Updated DateTime 07/10/2020 94287.22 g 26.4 kg/m2 162.56 cm Camila Zamudio NP [address] [place], [address], [facility] 07/10/2020 10:09:42 Social History Question Answer Notes LastModified by Organizat ion Details LastModified Time Tobacco Smoking Status Never Smoker Camila Zamudio NP [address] [place], [address], [facility] 07/10/2020 10:19:16 What Is Your [...] mL dose, esme-sucrose 06/11/2021 completed CHEL DENISE [address] [place] [address], [phone], [facility] 06/11/2021 17:40:47 COVID-19, mRNA, LNP-S, PF, 30 mcg/0.3 mL dose, esme-sucrose 07/02/2021 completed CHEL DENISE [address] [place] [address], [phone], [facility] 07/02/2021 16:48:37 Past Encounters Encounter ID Performer Location Encounter Start Date Encounter Closed Date Diagnosis/Indication Diagnosis SNOMED-CT Code [id number] [facility] [address] [place] [phone] 07/10/2020 09:59:40 07/10/2020 10:54:47 Initial prescription of oral contraception [id number] CHEL DENISE [facility] [address] [place] [phone] 06/11/2021 17:31:36 06/11/2021 20:55:28 Administration of first dose of SARS-CoV-2 mRNA vaccine [id number] CHEL DENISE [facility] [address] [place] [phone] 07/02/2021 16:37:08 07/02/2021 19:40:04 Administration of second dose of SARS-CoV-2 mRNA vaccine [id number] Health Concerns Section Related Observation LastModified by [...] been taking them x 6 months through [facility] Planning. Ran out of pills [...] very low in her uterus Camila Zamudio, WASHER ENGINEER HELPER [address] [place], [address], [facility] 07/10/2020 10:50:00 06/11/2021 text/html HPI Notes: Requesting Covid 19 vaccine CHEL DENISE [address] [place], [address], [facility] 06/11/2021 17:40:58 07/02/2021 text/html HPI Notes: Requesting Covid 19 vaccine RODNEYCHEL FLETCHER [address] [place], [address], [facility] 07/02/2021 16:48:54 OBGyn Episode No OBEpisode recorded.
--- OUTSIDE RECORDS SUMMARY | 2023-10-07 09:05 | XMS_ITS | Clinical Summary ---
Author Name Unknown Organization [facility] Address [place], [place] [address] Care Team Providers Care Clothing Busheler Name Role Phone Pcp, No Primary Care Provider Celi Zapata CN Unavailable [phone] Allergies No known active allergies Medications Medication [...] , currently 04/12/2023 Round ligament pain 04/12/2023 [facility] Supervision of high-risk 3 Overview: Gretta Von : 2000 MPP ULTRASOUND/TESTING PATIENT MPP CONSULT ON 04/12/23 Support person name: Credit Rating Inspector: Yes: Romansh ULTRASOUND TYPE: L2 on 06/03/23 REASON FOR [...] 7w5d ECHO: REFERRING PHYSICIAN/PHONE/LAST UPDATE: Celi Be [facility] [phone] Primary MD approves scheduling of recommended ultrasounds/testing: Yes SPECIALISTS/CONSULTS: Include: Specialty MD Clinic Name Phone# [place] and ADDED TO PATIENT CARE TEAM Yes GENETICS: Declines/Not Done CARE COORDINATION: PERTINENT LABS: Labs reviewed? Yes Normal? Not all labs available Blood type: O Rh Positive Antibody screen: Negative Non-[facility] labs need to be entered in [employer]? Yes PERTINENT MEDS: PROCEDURES: IF FGR <10% or EFW <2000 grams: Add FGRPCOM PLAN OF CARE: Original and updated POC 06/12/22 [place] History of loss at 20 weeks - No records available, labs and pathology unavailable, but maternal report of events is consistent with placental abruption (risk of recurrence 5-10%) - Consider antiphospholipid antibody testing, TSH level in [place] - Recommend detailed anatomy scan at 19 weeks with [facility] - Growth scans q 3- 4 weeks [...] - Recommend ekg or holter monitor in [place] - Also told her to try stopping [...] Estimated Date of Delivery 04/12/2023 - Present (10/07/2023) 10/20/2023 (set by Elizabeth Painter, RN on 04/12/2023 based on Ultrasound on 03/08/2023) Dating Summary Based On FIONA GA Diff Last Menstrual Period on 08/10/2022 05/17/2023 +22w2d Ultrasound on 03/08/2023 10/20/2023 Working GA:7w5d Vitals Pregravid Weight Height TWG (As of 10/07/2023) Pregrav id BMI 1.524 m (5') Date [...] needed. Services Provided: Procedures Code DETAIL ANATOMY 66023.0 L LAYOUT WORKER Progress Notes - Hospital En counter - 04/12/2023 - GA:12w5d 04/12/2023 - 12w5d - Elizabeth Hallman, RN [place] Physicians Consultation Visit Patient here for consultation [...] her breath. Denies chest pain or palpitations. historical interpreter used for entire appointment. Assessment Histories reviewed today include: Past Medical History, Past Surgical History, Social History and Family History and Obstetric History. Refer to the corresponding sections of the history section of [facility] chart and the [facility] Navigator for details. Assessment: Patient's perception of movement: Has not felt movement yet. Normal movement discussed. heart rate observed during brief bedside ultrasound. 130-140s. [facility] Some basic routine education done during [...] Elizabeth Painter RN 04/12/2023 1:59 PM L LAYOUT WORKER Last Filed Vital Signs Vital Sign Reading Time Taken Comments Blood Pressure 111/71 04/12/2023 2:07 PM STEEL LAYOUT WORKER Pulse 72 04/12/2023 2:07 PM STEEL LAYOUT WORKER Temperature 36.9 ??C (98.5 ??F) 02/25/2022 4:17 PM CD T Respiratory Rate 20 09/13/2019 3:52 PM CDT Oxygen Saturation 98% 08/12/2022 2:38 PM STEEL LAYOUT WORKER Inhaled Oxygen Concentration - - Weight 70.4 kg (155 lb 3.2 oz) 04/12/2023 2:07 P M STEEL LAYOUT WORKER Height 152.4 cm (5') 04/12/2023 2:07 PM STEEL LAYOUT WORKER Body Mass Index 30.31 04/12/2023 2:07 PM STEEL LAYOUT WORKER Plan of Treatment Health Maintenance Due Date [...] HIV-1/O/2, 4TH GENERATION Routine 06/26/2022 3:11 PM STEEL LAYOUT WORKER Encounter for supervision of other normal in first trimester ANTI HCV Routine 02/25/2022 5:28 PM CDT Need for hepatitis C screening test [employer] THIN PREP PAP SCREEN IMAGED Routine 12/14/2019 9:00 AM CDT Screening for malignant neoplasm of cervix from Last 3 Months or Most Recently Relevant to Health Maintenance Results * LC HIV-1/O/2, 4TH GENERATION (06/26/2022 3:11 PM STEEL LAYOUT WORKER) Pathologist [facility] HIV Scr 4th Gen Non Reactive Non Reactive 06/30/2022 12:08 PM STEEL LAYOUT WORKER [facility] ([facility]) Comment: HIV Negative HIV-1/HIV-2 antibodies and HIV-1 p24 antigen were NOT detected. There is no laboratory evidence of HIV infection. Blood BLOOD SPECIMEN / Unknown Venipuncture / Unknown 06/26/2022 3:11 PM STEEL LAYOUT WORKER 06/26/2022 3:15 PM STEEL LAYOUT WORKER Narrative [facility] ([facility]) - 06/30/2022 12:08 PM STEEL LAYOUT WORKER Performed at: ??[address] - [address] ??[id number] Patient Companion: Sheldon Castillo MD, Phone: ??[phone] Cami Brunner MD LABORATORY [facility] ([facility]) [address] [place] [address] * ANTI HCV (02/25/2022 5:28 PM CDT) HEPATITIS C ANTIBODY Non-React gely Non-React gely 02/27/2022 3:09 AM CDT [facility] TRAL LABORATORY Comment:Antibodies to HCV no t detected; does not exclude the possibility of exposure to HCV. Blood BLOOD SPECIMEN / Unknown Venipuncture / Unknown 02/25/2022 5:28 PM CDT 02/25/2022 5:29 PM CDT Meron Machado MD SEND OUTS [facility] LABORATORY-CENTRAL LABORATORY [address] [place] [address], * NAV[employer] AIRCREWMAN THIN PREP PAP SCREEN IMAGED [[id number]] (12/14/2019 9:00 AM CDT) Case Report Gynecologic Cytology Report ? Case: [id number] ? Authorizing Provider: ??Meron Machado MD ? Collected: ? 12/14/2019 0900 ? Ordering Location: ? [facility] ?? Received: ?12/14/2019 0921 ? Clinic ? First Screen: ?Galindo Mccall ? Rescreen: ?Kelly Hansen ? Specimen: ?NAVAL AIRCREWMAN ThinPrep Vial Screening, Cervical ? 12/20/2019 8:10 AM CDT [facility] INTERPRETATION/ RESULT NEGATIVE FOR INTRAEPITHELIAL LESION OR MALIGNANCY (NIL) (none) 12/20/2019 8:10 AM CDT [facility] [employer] [facility] ENTRAL LABORATORY IMEN ADEQUACY Satisfactory for evaluation Endocervical component present 12/20/2019 8:10 AM CDT [facility] [employer] LAB[facility]ORYC ENTRAL LABORATORY HPV REQUEST HPV if ASCUS 12/20/2019 8:10 AM CDT [facility] ENTRAL LABORATORY Date of LMP 09/14/2019 12/20/2019 8:10 AM CDT [facility] [employer] LABORATORY-C ENTRAL LABORATORY Last Pap Date n/a 12/20/2019 8:10 AM CDT [facility] [employer] LABORATORY-C ENTRAL LABORATORY Last Pap Result First Pap/Unknown 8:10 AM CDT [facility] [employer] LABORATORY-C ENTRAL LABORATORY Abnormal Pap or [place] Bx in last 5 years No 12/20/2019 8:10 AM CDT [facility] LABORATORY-C ENTRAL LABORATORY Menstrual Status Irregular Periods 12/20/2019 8:10 AM CDT [facility] [employer] LABORATORY-C ENTRAL LABORATORY [place] Bx Done Today No 12/20/2019 8:10 AM CDT [facility] [place] ENTRAL LABORATORY Additional Information None given 12/20/2019 8:10 AM CDT [facility] Comment: Cytology is screened at [facility] [employer] [facility], Central Laboratory - [address], [place] [address] and [facility] Laboratory - [address], [place] [address] [address] [facility] Laboratory - [address] [place] [address] Interpreted at [facility], Central Laboratory - [address], [place] [address] Automated Review Successful 12/20/2019 8:10 AM CDT [facility] [employer] LABORATORY-C ENTRAL LABORATORY Comment:Specimen processed s uccessfully by automated metal painter device, ZhenXinPrep Imaging System, [employer] Note The pap test is a [...] and malignant lesions. 12/20/2019 8:10 AM CDT [facility] LABORATORY-C ENTRAL LABORATORY Other (Cervical) Non-Blood / Unknown 12/14/2019 9:00 AM CDT 12/14/2019 9:21 AM CDT Meron Machado MD PATHOLOGY/CYTOLOGY [facility]-CENTRAL LABORATORY [address] [place] [address], [place] from Last 3 Months or Most Recently Relevant to Health Maintenance Care Teams Clothing Busheler Relationship Specialty Start Date End Date Pcp, No . PCP - General 06/19/19 Celi Be CNM [address] [place] [address] Referring Provider Certified Nurse Apprentice Painter Brush 03/10/23
--- NOTE | 2023-10-07 09:15 | US_ITS ---
Patient: CLIVE RINCON Facility:?[facility] RIS Patient ID:?[id number] Site Patient ID:?[id number]. Site :?2000 Study:?US-OB Pelvis OB BPP-10/07/2023 9:36:32 AM Ordering Physician:?JAMES BLANDON M.D. Final Report: INDICATION: History of intrauterine demise COMPARISON: 09/30/2023 TECHNIQUE: Real time snyder scale imaging of the fetus was performed. Without non-stress testing. FINDINGS: Sonographic imaging demonstrates a single living intrauterine gestation. Fetus demonstrates a regular cardiac rate of 125 beats per minute. Fetus has a vertex position. The amniotic fluid volume appears normal and there is a single deepest pocket measurement of 4.1 cm. The fetus was active and demonstrated normal breathing movements. There was normal flexion and extension of the trunk and extremities. IMPRESSION: Normal biophysical profile score of 8 out of 8. Dictated by Manish More MD @ 10/07/2023 11:44:10 AM Signed by:?Manish More MD @10/07/2023 11:44:10 AM (Electronic Signature)
== END 2023-10-07 09:05 | disposition home or self-care (01) ==
LOC: US 09:04
PROVIDERS: Visit Provider Obstetrics & Gynecology
DX: O09.299 Supervision of pregnancy with other poor reproductive or obstetric history, unspecified trimester (principal); Z87.59 Personal history of other complications of pregnancy, childbirth and the puerperium
CPT/HCPCS: 76819

== ENCOUNTER 2023-10-09 15:48 | Outpatient (CLI) | payer MEDICAID, SELFPAY ==
--- OUTSIDE RECORDS SUMMARY | 2023-10-09 15:51 | XMS_ITS | Clinical Summary ---
Author Name Unknown Organization [facility] Address [place], [place] [address] Care Team Providers Care Water Quality Control Engineer Name Role Phone Pcp, No Primary Care Provider Celi Zapata CN Unavailable [phone] Allergies No known active allergies Medications Medication [...] , currently 04/12/2023 Round ligament pain 04/12/2023 [facility] Supervision of high-risk 3 Overview: Gretta Von : 2000 MPP ULTRASOUND/TESTING PATIENT MPP CONSULT ON 04/12/23 Support person name: Field Operator: Yes: Danish ULTRASOUND TYPE: L2 on 06/03/23 REASON FOR [...] Delivery: 10/20/23. MATERNAL 2016 19-20w IUFD (in [facility], no records available) 2017 40w (bedrest, watched for weak uterus, in [facility]) PREVIOUS ULTRASOUNDS: 06/03/23 L2 03/08/23 7w5d ECHO: REFERRING PHYSICIAN/PHONE/LAST UPDATE: Celi Be [facility] [place] [phone] Primary MD approves scheduling of recommended ultrasounds/testing: Yes SPECIALISTS/CONSULTS: Include: Specialty MD Clinic Name Phone# [place] and ADDED TO PATIENT CARE TEAM Yes GENETICS: Declines/Not Done CARE COORDINATION: PERTINENT LABS: Labs reviewed? Yes Normal? Not all labs available Blood type: O Rh Positive Antibody screen: Negative Non-[facility] labs need to be entered in [place]? Yes PERTINENT MEDS: PROCEDURES: IF FGR <10% or EFW <2000 grams: Add FGRPCOM PLAN OF CARE: Original and updated POC 06/12/22 [place] History of loss at 20 weeks - No records available, labs and pathology unavailable, but maternal report of events is consistent with placental abruption (risk of recurrence 5-10%) - Consider antiphospholipid antibody testing, TSH level in [place] - Recommend detailed anatomy scan at 19 weeks with [facility] - Growth scans q 3- [...] - Recommend ekg or holter monitor in [place] - Also told her to try stopping [...] se Living Status Comments:IUFD, bleeding entire Delivery Location:[facility] 09/17 Term 39w 5d 2.49 kg (5 lb 8 oz) M Vag Lela ng Pastor Complications:None Delivery Location:[facility] 06/29 SAB 6w0 d SPONTANEO US Current Summary Episode Dates Number of Fetuses Estimated Date of Delivery 04/12/2023 - Present (10/09/2023) 10/20/2023 (set by Elizabeth Painter, RN on 04/12/2023 based on Ultrasound on 03/08/2023) Dating Summary Based On FIONA GA Diff Last Menstrual Period on 08/10/2022 05/17/2023 +22w2d Ultrasound on 03/08/2023 10/20/2023 Working GA:7w5d Vitals Pregravid Weight Height TWG (As of 10/09/2023) Pregrav id BMI 1.524 m (5') Date [...] weeks gestation of Z3A.20 2015-20wk IUFD (in [facility], no records)- maternal report sounds like placental abruption 2018- (bedrest, watched for weak uterus, in [facility]) Declined serum screening Detailed US IMPRESSION: [...] needed. Services Provided: Procedures Code DETAIL ANATOMY 03032.0 GE LEAD Progress Notes - Hospital En counter - 04/12/2023 - GA:12w5d 04/12/2023 - 12w5d - Elizabeth Hallman, RN [place] Physicians Consultation Visit Patient here for consultation due to h/o of IUFD at 19-20 weeks in [facility]. Term following that . Is currently @ 12w5d and complains of nausea and vomiting up to 6x/day. Vaginal pain so severe that it makes it hard to walk. Recent episodes of waking in the middle of the night and unable to catch her breath. Denies chest pain or palpitations. direct care staffer used for entire appointment. Assessment Histories reviewed today include: Past Medical History, Past Surgical History, Social History and Family History and Obstetric History. Refer to the corresponding sections of the history section of [facility] chart and the [facility] Navigator for details. Assessment: Patient's perception of movement: Has not felt movement yet. Normal movement discussed. heart rate observed during brief bedside ultrasound. 130-140s. Preferred delivery location: [facility] Some basic routine education done during assessment. [...] min Elizabeth Painter RN 04/12/2023 1:59 PM GE LEAD Last Filed Vital Signs Vital Sign Reading Time Taken Comments Blood Pressure 111/71 04/12/2023 2:07 PM CHANGE LEAD Pulse 72 04/12/2023 2:07 PM CHANGE LEAD Temperature 36.9 ??C (98.5 ??F) 02/25/2022 4:17 PM CD T Respiratory Rate 20 09/13/2019 3:52 PM CDT Oxygen Saturation 98% 08/12/2022 2:38 PM CHANGE LEAD Inhaled Oxygen Concentration - - Weight 70.4 kg (155 lb 3.2 oz) 04/12/2023 2:07 P M CHANGE LEAD Height 152.4 cm (5') 04/12/2023 2:07 PM CHANGE LEAD Body Mass Index 30.31 04/12/2023 2:07 PM CHANGE LEAD Plan of Treatment Health Maintenance Due Date [...] HIV-1/O/2, 4TH GENERATION Routine 06/26/2022 3:11 PM CHANGE LEAD Encounter for supervision of other normal in first trimester ANTI HCV Routine 02/25/2022 5:28 PM CDT Need for hepatitis C screening test SNACK STEWARD THIN PREP PAP SCREEN IMAGED Routine 12/14/2019 9:00 AM CDT Screening for malignant neoplasm of cervix from Last 3 Months or Most Recently Relevant to Health Maintenance Results * LC HIV-1/O/2, 4TH GENERATION (06/26/2022 3:11 PM CHANGE LEAD) Pathologist [facility] HIV Scr 4th Gen Non Reactive Non Reactive 06/30/2022 12:08 PM CHANGE LEAD [facility] ([facility]) Comment: HIV Negative HIV-1/HIV-2 antibodies and HIV-1 p24 antigen were NOT detected. There is no laboratory evidence of HIV infection. Blood BLOOD SPECIMEN / Unknown Venipuncture / Unknown 06/26/2022 3:11 PM CHANGE LEAD 06/26/2022 3:15 PM CHANGE LEAD Narrative [facility] ([facility]) - 06/30/2022 12:08 PM CHANGE LEAD Performed at: ??01 - [address] ??[id number] Pediatric Ophthalmologist: Sheldon Castillo MD, Phone: ??[phone] Cami Brunner MD LABORATORY [facility] ([facility]) [address] [place] [address] * ANTI HCV (02/25/2022 5:28 PM CDT) HEPATITIS C ANTIBODY Non-React gely Non-React gely 02/27/2022 3:09 AM CDT [facility] TRAL LABORATORY Comment:Antibodies to HCV no t detected; does not exclude the possibility of exposure to HCV. Blood BLOOD SPECIMEN / Unknown Venipuncture / Unknown 02/25/2022 5:28 PM CDT 02/25/2022 5:29 PM CDT Meron Machado MD SEND OUTS [facility] LABORATORY-CENTRAL LABORATORY [address] [place] [address], * SNACK STEWARD THIN PREP PAP SCREEN IMAGED [[id number]] (12/14/2019 9:00 AM CDT) Case Report Gynecologic Cytology Report ? Case: [id number] ? Authorizing Provider: ??Meron Machado MD ? Collected: ? 12/14/2019 0900 ? Ordering Location: ? [facility] ?? Received: ?12/14/2019 0921 ? Clinic ? First Screen: ?Galindo Mccall ? Rescreen: ?Kelly Hansen ? Specimen: ?SNACK STEWARD ThinPrep Vial Screening, Cervical ? 12/20/2019 8:10 AM CDT [facility] ENTRAL LABORATORY INTERPRETATION/ RESULT NEGATIVE FOR INTRAEPITHELIAL LESION OR MALIGNANCY (NIL) (none) 12/20/2019 8:10 AM CDT [facility] [employer] [facility]-C ENTRAL LABORATORY IMEN ADEQUACY Satisfactory for evaluation Endocervical component present 12/20/2019 8:10 AM CDT [facility] [employer] LABORATORYC ENTRAL LABORATORY HPV REQUEST HPV if ASCUS 12/20/2019 8:10 AM CDT [facility] ENTRAL LABORATORY Date of LMP 09/14/2019 12/20/2019 8:10 AM CDT [facility] [employer] LABORATORY-C ENTRAL LABORATORY Last Pap Date n/a 12/20/2019 8:10 AM CDT [facility] [employer] LABORATORY-C ENTRAL LABORATORY Last Pap Result First Pap/Unknown 8:10 AM CDT [facility] [employer] LABORATORY-C ENTRAL LABORATORY Abnormal Pap or [place] Bx in last 5 years No 12/20/2019 8:10 AM CDT [facility] [employer] LABORATORY-C ENTRAL LABORATORY Menstrual Status Irregular Periods 12/20/2019 8:10 AM CDT [facility] [employer] LABORATORY-C ENTRAL LABORATORY [place] Bx Done Today No 12/20/2019 8:10 AM CDT [facility] [employer] [facility]-C ENTRAL LABORATORY Additional Information None given 12/20/2019 8:10 AM CDT [facility] [employer] [facility] ENTRAL LABORATORY Comment: Cytology is screened at [facility] [employer] [facility], Central Laboratory - [address], [place] [address] and [facility] Laboratory - [address], [place] [address] [facility] Laboratory - [address] [place] [address] Interpreted at [facility], Central Laboratory - [address], [place] [address] Automated Review Successful 12/20/2019 8:10 AM CDT [facility] [employer] LABORATORY-C ENTRAL LABORATORY Comment:Specimen processed s uccessfully by automated industrial education teacher device, [employer]Prep Imaging System, [employer] Note The pap test is a [...] malignant lesions. 12/20/2019 8:10 AM CDT [facility] LABORATORY-C ENTRAL LABORATORY Other (Cervical) Non-Blood / Unknown 12/14/2019 9:00 AM CDT 12/14/2019 9:21 AM CDT Meron Machado MD PATHOLOGY/CYTOLOGY [facility]-CENTRAL LABORATORY [address] [place] [address], [place] from Last 3 Months or Most Recently Relevant to Health Maintenance Care Teams Water Quality Control Engineer Relationship Specialty Start Date End Date Pcp, No . PCP - General 06/19/19 Celi Be CNM [address] [place] [address] Referring Provider Certified Nurse Returned Goods Sorter 03/10/23
--- OUTSIDE RECORDS SUMMARY | 2023-10-09 15:51 | XMS_ITS | Data Portability ---
Author Name Unknown Address [address] [place] [address] Phone [phone] Organization [facility] [employer] cindy MYLENELARA OFFICE Address [address] [place] [phone] Assessment No assessment recorded. Plan of Treatment Reminders Order Date Submit Date Provider Last Modified By Organization Details Last Modified Time Details Appointments None recorded . Lab None recorded . Referral None recorded . Procedures None recorded . Surgeries None recorded . Imaging None recorded . Medication Orders Sadia (28) 3 mg-0.02 mg tablet 021 021 INTERFACE [facility], [address] [place], [address], 10:40:14 Patient TargetsNo targets recorded. Patient Instructions Encounter Date Encounter Id Patient Instructions Last Modified By Organization Details Last Modified Time 06/11/2021 [id number] May take Ibuprofen/Tylenol prn, ice to arm prn. RTC 3weeks for second dose. [email or web address] Not available 06/11/2021 17:34:20 Reason for Referral None Reported. Problems Name Status Onset Date Resolution Date Notes Provider Name and Address Organization Details Recorded Time Umbilical hernia Active 07/10/19 17 Camila Zamudio NP [address] [place], [address], [facility] [employer] 07/10/2020 10:11:34 Problem Notes None recorded. Procedures Surgical History Date Name Laterality Status Provider Name and Address Organization Details Recorded Time 11/06/2019 Date of Last Pap Smear completed Camila Zamudio NP [address] [place], [address], [facility] [employer] 07/10/2020 10:20:48 Imaging Results None recorded. Procedure [...] Address Organization Details Last Updated DateTime 07/10/2020 99860.22 g 26.4 kg/m2 162.56 cm Camila Zamudio NP [address] [place], [address], [facility] 07/10/2020 10:09:42 Social History Question Answer Notes LastModified by Organizat ion Details LastModified Time Tobacco Smoking Status Never Smoker Camila Zamudio NP [address] [place], [address], [facility] 07/10/2020 10:19:16 What Is Your Level Of [...] dose, esme-sucrose 06/11/2021 completed CHEL DENISE [address] [place] [address], [phone], [facility] [employer] [facility] 06/11/2021 17:40:47 COVID-19, mRNA, LNP-S, PF, 30 mcg/0.3 mL dose, esme-sucrose 07/02/2021 completed CHEL DENISE [address] [place] [address], [phone], [facility] [employer] [facility] 07/02/2021 16:48:37 Past Encounters Encounter ID Performer Location Encounter Start Date Encounter Closed Date Diagnosis/Indication Diagnosis SNOMED-CT Code [id number] [facility]ud[facility] [address] [place] [phone] 07/10/2020 09:59:40 07/10/2020 10:54:47 Initial prescription of oral contraception [id number] CHEL DENISE [facility] [address] [place] [id number] 06/11/2021 17:31:36 06/11/2021 20:55:28 Administration of first dose of SARS-CoV-2 mRNA vaccine [id number] CHEL DENISE [facility] [address] [place] [id number] 07/02/2021 16:37:08 07/02/2021 19:40:04 Administration of second dose of SARS-CoV-2 mRNA vaccine [id number] Health Concerns Section Related Observation LastModified by [...] been taking them x 6 months through [facility] Planning. Ran out of pills 07/01/20 [...] very low in her uterus Camila Zamudio, SENIOR FIREWALL ENGINEER [address] [place], [address], [facility] 07/10/2020 10:50:00 06/11/2021 text/html HPI Notes: Requesting Covid 19 vaccine CHEL DENISE [address] [place], [address], [facility] 06/11/2021 17:40:58 07/02/2021 text/html HPI Notes: Requesting Covid 19 vaccine RODNEYCHEL FLETCHER [address] [place], [address], [facility] 07/02/2021 16:48:54 OBGyn Episode No OBEpisode recorded.
[2023-10-09 15:55] VITALS: PULSE 68; O2SAT 99
[2023-10-09 15:56] VITALS: BP 122/84; PULSE 65; TEMP 36.6
--- NOTE | 2023-10-09 19:18 | PC.OBNST ---
NST Note NST Note Start: 10/09/23 16:04 Freq: ONCE Status: Active Protocol: Document 10/09/23 19:09 SABIANIST (Rec: 10/09/23 19:17 SABIANIST [id number]) NST Note 4 Para (# of births) 1 EDC 10/20/23 Gestational Age In Weeks & Days 38 Weeks & 3 Days Patient Presented with Complaint(s) of Contractions/cramping,Other Other Complaints loss of mucus plug Reactive Yes Appropriate for Gestational Age Yes CHARU Rosario Date 10/09/23 Reactive Yes Appropriate for Gestational Age Yes CHARU Hung Date 10/09/23 OB NST charge Yes Complete NST Note via Write Note Yes The provider's electronic signature indicates the NST is reactive/appropriate for gestational age. *Note to provider: If an addendum is required, open the patient's chart and click on the note under the Nurse/Allied Health tab.
== END 2023-10-09 18:35 | disposition home or self-care (01) ==
LOC: OB OUT 15:48 → OB 15:49
PROVIDERS: Visit Provider Obstetrics & Gynecology
DX: O47.1 False labor at or after 37 completed weeks of gestation (principal); Z3A.38 38 weeks gestation of pregnancy
CPT/HCPCS: 59025; G0463

== ENCOUNTER 2023-10-14 09:11 | Outpatient (CLI) | payer MEDICAID, SELFPAY ==
--- NOTE | 2023-10-14 09:15 | US_ITS ---
Patient: CLIVE RINCON Facility:?[facility] Patient ID:?[id number] Site Patient ID:?[id number]. Site :?2000 Study:?US-OB Pelvis BPP-10/14/2023 9:46:10 AM Ordering Physician:?JAMES BLANDON Final Report: Indication: Evaluate well-being. Personal history of complications of Technique: Sonography of the gravid uterus was performed as a biophysical profile study. The examination is limited to only that which is discussed below. Comparison: October 07, 2023 Findings: The cervix was not visualized. Position is vertex. The single deepest pocket is 3.8 centimeters. A formal CARRIE was performed and the total CARRIE is 4.2 centimeters which is low. A formal CARRIE was not performed on the prior study though the single deepest pocket at that time was 4.1 centimeters. The biophysical profile score is 8/8 The placenta is anterior right. Heart rate is 127 beats per minute Impression: 1. Biophysical profile score is 8/8 2. Low fluid volume with a total CARRIE of 4.2 centimeters. 3. Other data as described above Dictated by Jr Candelario MD @ 10/14/2023 9:51:52 AM Signed by:?Jr Candelario MD @10/14/2023 9:51:52 AM (Electronic Signature)
--- OUTSIDE RECORDS SUMMARY | 2023-10-14 09:15 | XMS_ITS | Clinical Summary ---
Author Name Unknown Organization [employer] [facility] Address [place], [place] [address] Care Team Providers Care Residential Building Inspector Name Role Phone Pcp, No Primary Care Provider Celi Zapata CN Unavailable [phone] Allergies No known active allergies Medications Medication [...] , currently 04/12/2023 Round ligament pain 04/12/2023 [facility] Supervision of high-risk 3 Overview: Gretta Von : 2000 MPP ULTRASOUND/TESTING PATIENT MPP CONSULT ON 04/12/23 Support person name: Beet Worker: Yes: Mongolian ULTRASOUND TYPE: L2 on 06/03/23 REASON FOR [...] Delivery: 10/20/23. MATERNAL 2016 19-20w IUFD (in [facility], no records available) 2017 40w (bedrest, watched for weak uterus, in [facility]) PREVIOUS ULTRASOUNDS: 06/03/23 L2 03/08/23 7w5d ECHO: REFERRING PHYSICIAN/PHONE/LAST UPDATE: Celi Be [facility] [phone] Primary MD approves scheduling of recommended ultrasounds/testing: Yes SPECIALISTS/CONSULTS: Include: Specialty MD Clinic Name Phone# [place] and ADDED TO PATIENT CARE TEAM Yes GENETICS: Declines/Not Done CARE COORDINATION: PERTINENT LABS: Labs reviewed? Yes Normal? Not all labs available Blood type: O Rh Positive Antibody screen: Negative Non-[facility] labs need to be entered in [employer]? Yes PERTINENT MEDS: PROCEDURES: IF FGR <10% or EFW <2000 grams: Add FGRPCOM PLAN OF CARE: Original and updated POC 06/12/22 [place] History of loss at 20 weeks - No records available, labs and pathology unavailable, but maternal report of events is consistent with placental abruption (risk of recurrence 5-10%) - Consider antiphospholipid antibody testing, TSH level in [place] - Recommend detailed anatomy scan at 19 weeks with [facility] - Growth scans q 3- 4 weeks [...] - Recommend ekg or holter monitor in [place] - Also told her to try stopping [...] se Living Status Comments:IUFD, bleeding entire Delivery Location:[facility] 09/17 Term 39w 5d 2.49 kg (5 lb 8 oz) M Vag Lela ng Pastor Complications:None Delivery Location:[facility] 06/29 SAB 6w0 d SPONTANEO US Current Summary Episode Dates Number of Fetuses Estimated Date of Delivery 04/12/2023 - Present (10/14/2023) 10/20/2023 (set by Elizabeth Painter, RN on 04/12/2023 based on Ultrasound on 03/08/2023) Dating Summary Based On FIONA GA Diff Last Menstrual Period on 08/10/2022 05/17/2023 +22w2d Ultrasound on 03/08/2023 10/20/2023 Working GA:7w5d Vitals Pregravid Weight Height TWG (As of 10/14/2023) Pregrav id BMI 1.524 m (5') Date [...] weeks gestation of Z3A.20 2015-20wk IUFD (in [facility], no records)- maternal report sounds like placental abruption 2018- (bedrest, watched for weak uterus, in [facility]) Declined serum screening Detailed US IMPRESSION: [...] needed. Services Provided: Procedures Code DETAIL ANATOMY 87962.0 IO DIRECTOR Progress Notes - Hospital En counter - 04/12/2023 - GA:12w5d 04/12/2023 - 12w5d - Elizabeth Hallman, RN [place] [facility] Consultation Visit Patient here for consultation due to h/o of IUFD at 19-20 weeks in [facility]. Term following that . Is currently @ 12w5d and complains of nausea and vomiting up to 6x/day. Vaginal pain so severe that it makes it hard to walk. Recent episodes of waking in the middle of the night and unable to catch her breath. Denies chest pain or palpitations. distillery miller used for entire appointment. Assessment Histories reviewed today include: Past Medical History, Past Surgical History, Social History and Family History and Obstetric History. Refer to the corresponding sections of the history section of [facility] chart and the [facility] Navigator for details. Assessment: Patient's perception of movement: Has not felt movement yet. Normal movement discussed. heart rate observed during brief bedside ultrasound. 130-140s. Preferred delivery location: [facility] Some basic routine education done during [...] min Elizabeth Painter RN 04/12/2023 1:59 PM IO DIRECTOR Last Filed Vital Signs Vital Sign Reading Time Taken Comments Blood Pressure 111/71 04/12/2023 2:07 PM STUDIO DIRECTOR Pulse 72 04/12/2023 2:07 PM STUDIO DIRECTOR Temperature 36.9 ??C (98.5 ??F) 02/25/2022 4:17 PM CD T Respiratory Rate 20 09/13/2019 3:52 PM CDT Oxygen Saturation 98% 08/12/2022 2:38 PM STUDIO DIRECTOR Inhaled Oxygen Concentration - - Weight 70.4 kg (155 lb 3.2 oz) 04/12/2023 2:07 P M STUDIO DIRECTOR Height 152.4 cm (5') 04/12/2023 2:07 PM STUDIO DIRECTOR Body Mass Index 30.31 04/12/2023 2:07 PM STUDIO DIRECTOR Plan of Treatment Health Maintenance Due Date [...] HIV-1/O/2, 4TH GENERATION Routine 06/26/2022 3:11 PM STUDIO DIRECTOR Encounter for supervision of other normal in first trimester ANTI HCV Routine 02/25/2022 5:28 PM CDT Need for hepatitis C screening test ORTHOPEDIC PODIATRIST THIN PREP PAP SCREEN IMAGED Routine 12/14/2019 9:00 AM CDT Screening for malignant neoplasm of cervix from Last 3 Months or Most Recently Relevant to Health Maintenance Results * LC HIV-1/O/2, 4TH GENERATION (06/26/2022 3:11 PM STUDIO DIRECTOR) Pathologist [facility] HIV Scr 4th Gen Non Reactive Non Reactive 06/30/2022 12:08 PM STUDIO DIRECTOR [facility]) Comment: HIV Negative HIV-1/HIV-2 antibodies and HIV-1 p24 antigen were NOT detected. There is no laboratory evidence of HIV infection. Blood BLOOD SPECIMEN / Unknown Venipuncture / Unknown 06/26/2022 3:11 PM STUDIO DIRECTOR 06/26/2022 3:15 PM STUDIO DIRECTOR Narrative [facility] - 06/30/2022 12:08 PM STUDIO DIRECTOR Performed at: ??[address] ??[id number] [place]: Sheldon Castillo MD, Phone: ??[phone] Cami Brunner MD LABORATORY [facility] ([facility]) [address] [place] [address] * ANTI HCV (02/25/2022 5:28 PM CDT) HEPATITIS C ANTIBODY Non-React gely Non-React gely 02/27/2022 3:09 AM CDT [facility] Comment:Antibodies to HCV no t detected; does not exclude the possibility of exposure to HCV. Blood BLOOD SPECIMEN / Unknown Venipuncture / Unknown 02/25/2022 5:28 PM CDT 02/25/2022 5:29 PM CDT Meron Machado MD SEND OUTS [facility]-C[facility] LABORATORY [address] [place] [address], * ORTHOPEDIC PODIATRIST THIN PREP PAP SCREEN IMAGED [[id number]] (12/14/2019 9:00 AM CDT) Case Report Gynecologic Cytology Report ? Case: [id number] ? Authorizing Provider: ??Meron Machado MD ? Collected: ? 12/14/2019 0900 ? Ordering Location: ? [facility] ?? Received: ?12/14/2019 0921 ? Clinic ? First Screen: ?Galindo Mccall ? Rescreen: ?Kelly Hansen ? Specimen: ?ORTHOPEDIC PODIATRIST ThinPrep Vial Screening, Cervical ? 12/20/2019 8:10 AM CDT [facility] INTERPRETATION/ RESULT NEGATIVE FOR INTRAEPITHELIAL LESION OR MALIGNANCY (NIL) (none) 12/20/2019 8:10 AM CDT [facility] ENTRAL LABORATORY IMEN ADEQUACY Satisfactory for evaluation Endocervical component present 12/20/2019 8:10 AM CDT [facility] LABORATORYC ENTRAL LABORATORY HPV REQUEST HPV if ASCUS 12/20/2019 8:10 AM CDT [facility] Date of LMP 09/14/2019 12/20/2019 8:10 AM CDT [facility] LABORATORY-C ENTRAL LABORATORY Last Pap Date n/a 12/20/2019 8:10 AM CDT [facility] LABORATORY-C ENTRAL LABORATORY Last Pap Result First Pap/Unknown 8:10 AM CDT [facility] LABORATORY-C ENTRAL LABORATORY Abnormal Pap or [place] Bx in last 5 years No 12/20/2019 8:10 AM CDT [facility] LABORATORY-C ENTRAL LABORATORY Menstrual Status Irregular Periods 12/20/2019 8:10 AM CDT [facility] LABORATORY-C ENTRAL LABORATORY [place] Bx Done Today No 12/20/2019 8:10 AM CDT [facility] ENTRAL LABORATORY Additional Information None given 12/20/2019 8:10 AM CDT [facility] Comment: Cytology is screened at [facility] [employer] [facility] Laboratory - [address], [place] [address] and [facility] Laboratory - [address], [place] [address] and [facility] Laboratory - [address] [place] [address] Interpreted at [facility], Central Laboratory - [address], [place] [address] Automated Review Successful 12/20/2019 8:10 AM CDT [facility] LABORATORY-C ENTRAL LABORATORY Comment:Specimen processed s uccessfully by automated supervisor bottle house cleaners device, Doctor [employer] System, [employer] Note The pap test is a [...] and malignant lesions. 12/20/2019 8:10 AM CDT [facility] LABORATORY-C ENTRAL LABORATORY Other (Cervical) Non-Blood / Unknown 12/14/2019 9:00 AM CDT 12/14/2019 9:21 AM CDT Meron Machado MD PATHOLOGY/CYTOLOGY [facility] LABORATORY [address] [place] [address], [place] from Last 3 Months or Most Recently Relevant to Health Maintenance Care Teams Residential Building Inspector Relationship Specialty Start Date End Date Pcp, No . PCP - General 06/19/19 Celi Be CNM [address] [place] [address] Referring Provider Certified Nurse Medical Records Director 03/10/23
--- OUTSIDE RECORDS SUMMARY | 2023-10-14 09:15 | XMS_ITS | Data Portability ---
Author Name Unknown Address [address] [place] [address] Phone [phone] Organization [facility] [employer] cindy MYLENELARA OFFICE Address [address] [place] [phone] Assessment No assessment recorded. Plan of Treatment Reminders Order Date Submit Date Provider Last Modified By Organization Details Last Modified Time Details Appointments None recorded . Lab None recorded . Referral None recorded . Procedures None recorded . Surgeries None recorded . Imaging None recorded . Medication Orders Sadia (28) 3 mg-0.02 mg tablet 021 021 INTERFACE Formerly [facility], [address] [place], [address], 10:40:14 Patient TargetsNo targets recorded. Patient Instructions Encounter Date Encounter Id Patient Instructions Last Modified By Organization Details Last Modified Time 06/11/2021 [id number] May take Ibuprofen/Tylenol prn, ice to arm prn. RTC 3weeks for second dose. [email or web address] Not available 06/11/2021 17:34:20 Reason for Referral None Reported. Problems Name Status Onset Date Resolution Date Notes Provider Name and Address Organization Details Recorded Time Umbilical hernia Active 07/10/19 17 Camila Zamudio NP [address] [place], [address], [facility] [employer] 07/10/2020 10:11:34 Problem Notes None recorded. Procedures Surgical History Date Name Laterality Status Provider Name and Address Organization Details Recorded Time 11/06/2019 Date of Last Pap Smear completed Camila Zamudio NP [address] [place], [address], [facility] [employer] 07/10/2020 10:20:48 Imaging Results None recorded. Procedure [...] Address Organization Details Last Updated DateTime 07/10/2020 12449.22 g 26.4 kg/m2 162.56 cm Camila Zamudio NP [address] [place], [address], [facility] 07/10/2020 10:09:42 Social History Question Answer Notes LastModified by Organizat ion Details LastModified Time Tobacco Smoking Status Never Smoker Camila Zamudio NP [address] [place], [address], [facility] 07/10/2020 10:19:16 What Is Your Level [...] mL dose, esme-sucrose 06/11/2021 completed CHEL DENISE [address] [place] [address], [phone], [facility] [employer] [facility] 06/11/2021 17:40:47 COVID-19, mRNA, LNP-S, PF, 30 mcg/0.3 mL dose, esme-sucrose 07/02/2021 completed CHEL DENISE [address] [place] [address], [phone], [facility] [employer] [facility] 07/02/2021 16:48:37 Past Encounters Encounter ID Performer Location Encounter Start Date Encounter Closed Date Diagnosis/Indication Diagnosis SNOMED-CT Code [id number] Camila Zamudio NP [facility] [address] [place] [id number] 07/10/2020 09:59:40 07/10/2020 10:54:47 Initial prescription of oral contraception [id number] CHEL DENISE [facility] [address] [place] [phone] 06/11/2021 17:31:36 06/11/2021 20:55:28 Administration of first dose of SARS-CoV-2 mRNA vaccine [id number] CHEL DENISE [facility] [address] [place] [phone] 07/02/2021 16:37:08 07/02/2021 19:40:04 Administration of second dose of SARS-CoV-2 mRNA vaccine [id number] Health Concerns Section Related Observation LastModified by [...] been taking them x 6 months through [facility] Planning. Ran out of pills 07/01/20 [...] very low in her uterus Camila Zamudio, TRUCK ENGINE ASSEMBLER [address] [place], [address], [facility] 07/10/2020 10:50:00 06/11/2021 text/html HPI Notes: Requesting Covid 19 vaccine CHEL DENISE [address] [place], [address], [facility] 06/11/2021 17:40:58 07/02/2021 text/html HPI Notes: Requesting Covid 19 vaccine RODNEYCHEL FLETCHER [address] [place], [address], [facility] 07/02/2021 16:48:54 OBGyn Episode No OBEpisode recorded.
== END 2023-10-14 09:12 | disposition home or self-care (01) ==
LOC: US 09:11
PROVIDERS: Visit Provider Obstetrics & Gynecology
DX: Z87.59 Personal history of other complications of pregnancy, childbirth and the puerperium (principal); O41.03X0 Oligohydramnios, third trimester, not applicable or unspecified; Z3A.39 39 weeks gestation of pregnancy
CPT/HCPCS: 76819

== ENCOUNTER 2023-10-14 13:21 | Inpatient (IN) | payer MEDICAID, SELFPAY ==
--- OUTSIDE RECORDS SUMMARY | 2023-10-14 13:24 | XMS_ITS | Clinical Summary ---
Author Name Unknown Organization [facility] Address [place], [place] [address] Care Team Providers Care Video Surveillance Technician Name Role Phone Pcp, No Primary Care Provider Celi Zapata CN Unavailable [phone] Allergies No known active allergies Medications Medication [...] 04/12/2023 Round ligament pain 04/12/2023 [facility] Supervision of high-risk 3 Overview: Gretta Von : 2000 MPP ULTRASOUND/TESTING PATIENT MPP CONSULT ON 04/12/23 Support person name: Molecular Spectroscopist: Yes: Tajik ULTRASOUND TYPE: L2 on 06/03/23 REASON FOR [...] Delivery: 10/20/23. MATERNAL 2016 19-20w IUFD (in [facility], no records available) 2017 40w (bedrest, watched for weak uterus, in [facility]) PREVIOUS ULTRASOUNDS: 06/03/23 L2 03/08/23 7w5d ECHO: REFERRING PHYSICIAN/PHONE/LAST UPDATE: Celi Be [facility] [phone] Primary MD approves scheduling of recommended ultrasounds/testing: Yes SPECIALISTS/CONSULTS: Include: Specialty MD Clinic Name Phone# LV [place] and ADDED TO PATIENT CARE TEAM Yes GENETICS: Declines/Not Done CARE COORDINATION: PERTINENT LABS: Labs reviewed? Yes Normal? Not all labs available Blood type: O Rh Positive Antibody screen: Negative Non-[facility] labs need to be entered in [place]? Yes PERTINENT MEDS: PROCEDURES: IF FGR <10% or EFW <2000 grams: Add FGRPCOM PLAN OF CARE: Original and updated POC 06/12/22 [place] History of loss at 20 weeks - No records available, labs and pathology unavailable, but maternal report of events is consistent with placental abruption (risk of recurrence 5-10%) - Consider antiphospholipid antibody testing, TSH level in [place] - Recommend detailed anatomy scan at 19 weeks with [facility] - Growth scans q 3- 4 weeks [...] - Recommend ekg or holter monitor in [place] - Also told her to try stopping [...] se Living Status Comments:IUFD, bleeding entire Delivery Location:[facility] 09/17 Term 39w 5d 2.49 kg (5 lb 8 oz) M Vag Lela ng Pastor Complications:None Delivery Location:[facility] 06/29 SAB 6w0 d SPONTANEO US Current [...] weeks gestation of Z3A.20 2015-20wk IUFD (in [facility], no records)- maternal report sounds like placental abruption 2018- (bedrest, watched for weak uterus, in [facility]) Declined serum screening Detailed US IMPRESSION: Intrauterine [...] needed. Services Provided: Procedures Code DETAIL ANATOMY 98140.0 CONNECTOR ASSEMBLER Progress Notes - Hospital En counter - 04/12/2023 - GA:12w5d 04/12/2023 - 12w5d - Elizabeth Hallman, RN [place] Physicians Consultation Visit Patient here for consultation due to h/o of IUFD at 19-20 weeks in [facility]. Term following that . Is currently @ [...] history section of [facility] chart and the [facility] Navigator for details. Assessment: Patient's perception of movement: Has not felt movement yet. Normal movement discussed. heart rate observed during brief bedside ultrasound. 130-140s. Preferred delivery location: [facility] Some basic routine education done [...] min Elizabeth Painter RN 04/12/2023 1:59 PM CONNECTOR ASSEMBLER Last Filed Vital Signs Vital Sign Reading Time Taken Comments Blood Pressure 111/71 04/12/2023 2:07 PM PUSH CONNECTOR ASSEMBLER Pulse 72 04/12/2023 2:07 PM PUSH CONNECTOR ASSEMBLER Temperature 36.9 ??C (98.5 ??F) 02/25/2022 4:17 PM CD T Respiratory Rate 20 09/13/2019 3:52 PM CDT Oxygen Saturation 98% 08/12/2022 2:38 PM PUSH CONNECTOR ASSEMBLER Inhaled Oxygen Concentration - - Weight 70.4 kg (155 lb 3.2 oz) 04/12/2023 2:07 P M PUSH CONNECTOR ASSEMBLER Height 152.4 cm (5') 04/12/2023 2:07 PM PUSH CONNECTOR ASSEMBLER Body Mass Index 30.31 04/12/2023 2:07 PM PUSH CONNECTOR ASSEMBLER Plan of Treatment Health Maintenance Due Date [...] HIV-1/O/2, 4TH GENERATION Routine 06/26/2022 3:11 PM PUSH CONNECTOR ASSEMBLER Encounter for supervision of other normal in first trimester ANTI HCV Routine 02/25/2022 5:28 PM CDT Need for hepatitis C screening test [facility] THIN PREP PAP SCREEN IMAGED Routine 12/14/2019 9:00 AM CDT Screening for malignant neoplasm of cervix from Last 3 Months or Most Recently Relevant to Health Maintenance Results * LC HIV-1/O/2, 4TH GENERATION (06/26/2022 3:11 PM PUSH CONNECTOR ASSEMBLER) Pathologist [facility] HIV Scr 4th Gen Non Reactive Non Reactive 06/30/2022 12:08 PM PUSH CONNECTOR ASSEMBLER [facility] ([facility]) Comment: HIV Negative HIV-1/HIV-2 antibodies and HIV-1 p24 antigen were NOT detected. There is no laboratory evidence of HIV infection. Blood BLOOD SPECIMEN / Unknown Venipuncture / Unknown 06/26/2022 3:11 PM PUSH CONNECTOR ASSEMBLER 06/26/2022 3:15 PM PUSH CONNECTOR ASSEMBLER Narrative [facility] ([facility]) - 06/30/2022 12:08 PM PUSH CONNECTOR ASSEMBLER Performed at: ??01 - [address] ??[id number] Test Engineering Manager: Sheldon Castillo MD, Phone: ??[phone] Cami Brunner MD LABORATORY [facility] ([facility]) [address] [place] [address] * ANTI HCV (02/25/2022 5:28 PM CDT) HEPATITIS C ANTIBODY Non-React gely Non-React gely 02/27/2022 3:09 AM CDT [facility] Comment:Antibodies to HCV no t detected; does not exclude the possibility of exposure to HCV. Blood BLOOD SPECIMEN / Unknown Venipuncture / Unknown 02/25/2022 5:28 PM CDT 02/25/2022 5:29 PM CDT Meron Machado MD SEND OUTS [facility] [address] [place] [address], * [facility] THIN PREP PAP SCREEN IMAGED [[id number]] (12/14/2019 9:00 AM CDT) Case Report Gynecologic Cytology Report ? Case: [id number] ? Authorizing Provider: ??Meron Machado MD ? Collected: ? 12/14/2019 0900 ? Ordering Location: ? [facility] ?? Received: ?12/14/2019 0921 ? Clinic ? First Screen: ?Galindo Mccall ? Rescreen: ?Kelly Hansen ? Specimen: ?[facility] ThinPrep Vial Screening, Cervical ? 12/20/2019 8:10 AM CDT [facility] INTERPRETATION/ RESULT NEGATIVE FOR INTRAEPITHELIAL LESION OR MALIGNANCY (NIL) (none) 12/20/2019 8:10 AM CDT [facility] IMEN ADEQUACY Satisfactory for evaluation Endocervical component present 12/20/2019 8:10 AM CDT [facility] HPV REQUEST HPV if ASCUS 12/20/2019 8:10 AM CDT [facility] Date of LMP 09/14/2019 12/20/2019 8:10 AM CDT [facility] EN[facility]AL LABORATORY Last Pap Date n/a 12/20/2019 8:10 AM CDT [facility] LAB[facility]AT[facility] Last Pap Result First Pap/Unknown 8:10 AM CDT [facility] EN[facility]AL LABORATORY Abnormal Pap or Inez Bx in last 5 years No 12/20/2019 8:10 AM CDT [facility] EN[facility]AL LABORATORY Menstrual Status Irregular Periods 12/20/2019 8:10 AM CDT [facility] EN[facility]AL LABORATORY Inez Bx Done Today No 12/20/2019 8:10 AM CDT [facility] [employer] [facility] Additional Information None given 12/20/2019 8:10 AM CDT [facility] Comment: Cytology is screened at [facility] Supportie [facility] Central Laboratory - [address], [place] [address] and [facility] - [address], [place] [address] and [facility] - [address] [place] [address] Interpreted at [facility], Central Laboratory - [address], [place] [address] Automated Review Successful 12/20/2019 8:10 AM CDT [facility] ENTRAL LABORATORY Comment:Specimen processed s uccessfully by automated signalling and communications engineer device, [employer] Imaging System, [employer] Note The pap test is a [...] and malignant lesions. 12/20/2019 8:10 AM CDT [facility] EN[facility]AL LABORATORY Other (Cervical) Non-Blood / Unknown 12/14/2019 9:00 AM CDT 12/14/2019 9:21 AM CDT Meron Machado MD PATHOLOGY/CYTOLOGY [facility] [address] [place] [address], [place] from Last 3 Months or Most Recently Relevant to Health Maintenance Care Teams Video Surveillance Technician Relationship Specialty Start Date End Date Pcp, No . PCP - General 06/19/19 Celi Be CNM [address] [place] [address] Referring Provider Certified Nurse Miniature Set Constructor 03/10/23
[2023-10-14 13:42] VITALS: BMI 34.9
[2023-10-14 13:47] VITALS: BP 109/70; PULSE 66; RESP 16; TEMP 36.5
[2023-10-14 14:21] LABS: Basophils Absolute Auto 0.03 K/uL (0.00-0.30); Basophils Percent Auto 0.3 % (0.0-3.0); Eosinophils Absolute Auto 0.02 K/uL (0.00-0.50); Eosinophils Percent Auto 0.2 % (0.0-7.0); Hematocrit 37.3 % (33.0-51.0); Hemoglobin* 12.6 gm/dL (12.0-16.0); Immature Granulocytes Abs Auto 0.03 K/uL (0.00-0.30); Immature Granulocytes Pct Auto 0.3 %; Lymphocytes Absolute Auto 1.85 K/uL (0.90-2.90); Lymphocytes Percent Auto 20.6 % (20-44); Mean Corpuscular HGB Conc 34 gm/dL (32-36); Mean Corpuscular Hemoglobin 30 pg (26-34); Mean Corpuscular Volume 88 fL (80-100); Monocytes Percent Auto 5.7 % (0.0-11.0); Neutrophils Percent Auto 72.9 % (42.0-72.0); Platelet Count* 236 K/uL (140-440); RDW Coefficient of Variation % 13.3 % (11.5-15.5); Red Blood Count 4.22 m/uL (4.00-5.20)
[2023-10-14 14:31] LABS: Slide Review Reflex No
[2023-10-14] MEDS: LACTATED RINGERS 1000 ML 1,000 ML 125 ML IV ×2 (14:45→23:51)
[2023-10-14] MEDS: AMPICILLIN 2 GM in 0.9 % SODIUM CHLORIDE Mini-bag 100 ML IVPB (14:50)
--- NOTE | 2023-10-14 15:47 | W.PM.LDBA ---
Subjective History of Present Illness Date Seen: 10/14/23 Narrative: Patient is being admitted to Labor and Delivery for labor augmentation. She is a 23 year old at 39 1/7 weeks gestation. Her full history and physical was dictated by Dr. PERAZA on 09/30/23. Please see this for details. Patient presented earlier today for routine appointment and had her scheduled BPP where CARIRE was found to be less than 5cm, diagnostic for oligohydramnios. History of questionable PROM but negative AmniSure earlier today in clinic. Specific Issues/Plans : Elder Son: Pastor. Baby: Boy! Debbie WANTS TO WAIT FOR INDUCTION UNTIL 10/21/2023: Needs to be scheduled at her 38/39wk visit. Tunisian speaking, needs security guards dispatcher. H&P by KARMEN on 09/30/2023 # Stillbirth close to 20 weeks w/ first . Was watched and on bedrest for weak uterus with subsequent . Occurred in [facility]. Per [facility] referral: -antiphospholipid antibody testing: negative -growth u/s q 3-4 weeks: 16 wks: growth 60% level II: Per [facility] 06/03: Anterior placenta, no previa. SDP 4.54. EFW 56%. Cervical length 3.3 cm. No abnormalities noted. 24 wks: EFW 805 g or 1# 12oz (65%), SDP 6.8 cm, BPD 59%, HC 40%, AC 80%, FL 24%, mally breech 28 weeks (08/01/23): Cephalic, normal fluid, EFW 40% 32 weeks: 08/26/2023: Vtx, SDP 5.8cm. EFW 1968gm = 48%. 36 wks 09/23/2023: BPP 8/8, vertex, SDP 4.3 cm. EFW: 2734 g, 6 lb 0 oz, 38% BPD 50%, HC 31%, AC 68%, FL 3%. -weekly BPP or NST starting at 28 weeks -EKG or holter monitor (r/t waking up gasping): holter on 04/15 - WNL -ideally delivery at 39 weeks, consider as early as 37 if desired for maternal anxiety of stillbirth: # Nausea and Vomiting (resolved at 16 week visit) Has script for epifanio added Thiamine TID (cont for 3 months after NV resolved) and Benadryl for HS. IVF 04/08 in clinic # Daily headache reported on 08/19/2023 Taking Reglan 10 mg daily Recommended adding Tylenol extra-strength 2 tablets every 6 hours as needed Recommended magnesium 500 mg p.o. q.h.s. to help prevent headaches Needs PP pap Flu: check at next visit. Declined at NOB, but was uncertain Covid: vaccinated Tdap: 08/12/2023 contraception: [facility] - Problem Based A/P Additional Plan (1) Oligohydramnios in third trimester: Status: Acute Plan 1. GBS positive, antibiotics started. 2. She has continued to progress on her own, she is reshma and feeling contractions as more painful. I do feel a forebag and I have not seen any watery like discharge otherwise to be suspicious of PROM, will keep a close eye. 3. Allow labor to continue for the moment, will re check cervix in about 4 hours and will consider AROM if able. OB Exam Physical Exam Vital signs: Temp Pulse Resp BP 97.7 F 66 16 109/70 10/14/23 13:47 10/14/23 13:47 10/14/23 13:47 10/14/23 13:47 Detailed Labor and Delivery Exam Patient Gravid: Yes Dilation (cm): 5 Effacement (%): 90 Cervix position: mid Consistency: soft Tachysystole: No Contraction intensity: Mild Fetus (Single) Station: 0 Heart Rate Baseline: 130 Monitor Accelerations: Present Monitor Decelerations: None Detention Variability: Moderate (6-25)
[2023-10-14 18:07] VITALS: BP 110/69; PULSE 66; RESP 17; TEMP 36.6
[2023-10-14] MEDS: AMPICILLIN 1 GM in 0.9 % SODIUM CHLORIDE Mini-bag 100 ML IVPB ×2 (18:54→23:08)
[2023-10-14 19:47] VITALS: BP 110/71; PULSE 71; TEMP 36.6
[2023-10-14 22:08] VITALS: BP 115/89; PULSE 67; RESP 18; TEMP 36.6
[2023-10-15] VITALS (47 sets, daily range): BP systolic 89–135; BP diastolic 44–75; PULSE 53–187; RESP 16–20; TEMP 36.4–37; O2SAT 81–100
[2023-10-15] MEDS: fentaNYL 100 MCG/2 ML inj 25 MCG INTRATHECA (00:10)
--- NOTE | 2023-10-15 00:17 | P.ANBPRC_ITS ---
[facility] Medical History Missed with demise before 20 completed weeks of gestation ?O02.1 - Missed (ICD-10) Surgical History [place] teeth extracted ?K08.409 - Partial loss of teeth, unspecified cause, unspecified class (ICD- 10) Social History Narrative: SOCIAL? ? Education: 12 grade? ? Work: cooks in a kitchen? ? Partner: Elder, , Computer Security Specialist? ? Lives with: Elder, son? ? Pets: denies? ? Abuse: Denies past Unable to assess current, partner present? ? Special Diet: Denies? ? Ok with a blood transfusion: yes? ? Culture or episcopal beliefs: Denies? RISK FACTORS? ? Exercise Times/wk: denies? ? Depression/Anxiety: denies? ? Previous Treatments: NA Therapy: NA ANTONIA: 0 PHQ 9: 2? ? Seat Belt Use: Routinely ? Smoking: Denies past/present? ? Alcohol/day: Denies while ? ? Caffeine: denies? ? Drug Use: Denies past/present? ? What is your current living situation?: I presently have a place to live Problems where you live: no known problems In the past 12 months, utilities in danger of being shut off: no In past 12 months, lack of transportation kept you from medical appts, meetings, work, or getting things needed for daily living: no In the past 12 mos, have been you worried that your food would run out before you had money to buy more?: never true In the past 12 mos, the food you bought just didn't last and you didn't have money to buy more?: never true Smoking Status: Never smoker Do you use any of these nicotine containing products: None Second hand tobacco smoke exposure: No How often do you have a drink containing alcohol: never How often do you have six or more drinks on one occasion: Never AUDIT-C Alcohol total score: 0 Non-prescribed substance use: denies use How often does anyone, including family, friends and others, physically hurt you : never How often does anyone, including family, friends and others, insult or talk down to you: never How often does anyone, including family, friends and others, threaten you with harm: never How often does anyone, including family, friends and others, scream or curse at you: never Little interest or pleasure in doing things: not at all Feeling down, depressed, or hopeless: not at all Meds Home Medications and Allergies Allergies Allergy/AdvReac Type Severity Reaction Status Date / Time No Known Drug Allergies Allergy Verified 10/14/23 13:50 Results Labs Labs: Laboratory Results - last 24 hr 10/14/23 13:43 WBC 9.00 RBC 4.22 Hgb 12.6 Hct 37.3 MCV 88 MCH 30 MCHC 34 RDW Coeff of Gertrude 13.3 Plt Count 236 Neut % (Auto) 72.9 H Lymph % (Auto) 20.6 [place] % (Auto) 5.7 Eos % (Auto) 0.2 Baso % (Auto) 0.3 Neut # (Auto) 6.60 Lymph # (Auto) 1.85 [place] # (Auto) 0.50 Eos # (Auto) 0.02 Baso # (Auto) 0.03 Abs Immat Gran (auto) 0.03 Imm/Tot Granulo (auto) 0.3 Blood Type O Positive Antibody Screen NEGATIVE Vital Signs Vital Signs: Last Vital Signs Temp 98 F 10/14/23 22:08 Pulse 71 10/15/23 00:15 Resp 18 10/14/23 22:08 BP 94/55 L 10/15/23 00:15 Pulse Ox 100 10/15/23 00:16 Weight: 78.562 kg Height: 150 cm Anesthesia Procedures Intrathecal Patient Location: OB Start Time: 23:55 Stop Time: 12:15 Start Date: 10/14/23 Stop Date: 10/15/23 Reason for Block: primary anesthetic Patient Position: sitting Performed By: Joshua Harding Preanesthetic Checklist: IV checked, risks and benefits discussed and anesthesia consent Prep: chlorhexidine gluconate Monitoring: blood pressure monitoring and continuous pulse oximetry Approach: midline Vertebral Space: lumbar (1-5) Needle Type: Pencan (25) Injection Technique: single-shot (0.5 ml 0.75%marcaine and 20 mcg fentanyl) Needle gauge: 25 Needle Length (cm): 10 cm Events: cerebrospinal fluid
[2023-10-15] MEDS: PHENYLEPHRINE 100 MCG/ML SYRINGE IVP (00:38)
[2023-10-15] MEDS: OXYTOCIN 30 unit/500 ML in NS 30 UNIT/500 ML BAG 300 UNIT IVPB (01:40)
--- NOTE | 2023-10-15 02:00 | W.PM.VAGDE_ITS ---
OB Procedure Vag Delivery Mother Details Mother Details: The patient is a 23 year-old, 4, Para 1, admitted on 10/14/23 at 39 1/7 weeks gestation for labor augmentation after oligohydramnios diagnosis. Patient admitted and found to have regular mildly painful contractions. GBS positive and antibiotics started right away. To augment labor AROM was completed and patient progressed well, requested epidural and soon after baby was found . : 4 Para: 2 Weeks Gestation: 39.2 Admission Date: 10/14/23 Additional Details Amniotic Membrane Status: AROM Amniotic Membrane Rupture Date: 10/14/23 Amniotic Membrane Rupture Time: 20:49 Amniotic Membrane Fluid Description: Clear Analgesia/Anesthesia Type: Epidural Waterbirth: No Pitcoin: No Intrapartal Events: Labor Augmentation Delivery augmentation: rupture of membranes Labor Onset: 22:00 Complete: 01:30 Pushin:38 Heart: heart tones during second stage were category 2. Delivery Details Delivery Date: 10/15/23 Delivery Time: 01:39 Route of delivery: Gender: Male Infant Viability: Alive; Heart Rate Present Position at Delivery: OA Delivery Details: Delivered over intact perineum via spontaneous vaginal delivery. was pl aced on maternal abdomen.? Cord was clamped and cut after a 30-60 second delay. Nose and mouth were bulb suctioned.? Infant weight pending. 1 Minute Interval Total Score: 8 5 Minute Interval Total Score: 9 Additional Details Shoulder Dystocia: No Placenta Delivery Time: 01:45 Placental Delivery Description: Spontaneous Delivery repair: Vicryl Procedure Done: Global Blood Loss: 100 Laceration: Periurethral - 1st Degree Episiotomy Description: None Blood Loss Measurement Type: QBL (100) Bakri Used: No Sponge/Need Count Correct: Yes Cord Vessel Description: 3 Vessels Event Summary Status: Mother and infant were stable after delivery. Disposition: floor
[2023-10-15] MEDS: IBUPROFEN 600 MG TABLET PO ×3 (03:45→17:53)
[2023-10-15] MEDS: DOCUSATE SODIUM 100 MG CAPSULE PO (08:11)
[2023-10-15] MEDS: ACETAMINOPHEN 500 MG TABLET 1000 MG PO ×3 (08:12→21:15)
--- NOTE | 2023-10-15 12:49 | PM.ANPOST ---
Post Anesthesia Note Post Anesthesia Note Patient seen: Inpatient Respiratory Status: adequate Cardiovascular Status: adequate Mental Status: baseline Pain: adequate Temp: baseline Anesthetic awareness: N/A Complications: none Follow care: none
[2023-10-15] MEDS: LANOLIN CREAM 1 APPLIC TOPICAL (13:24)
[2023-10-15] MEDS: BENZOCAINE/MENTHOL SPRAY 85 GM AEROSOL 1 APPLIC TOPICAL (21:17)
[2023-10-16] MEDS: IBUPROFEN 600 MG TABLET PO ×2 (00:06→06:13)
[2023-10-16 00:26] VITALS: BP 106/70; PULSE 76; RESP 18; TEMP 36.6; O2SAT 98
[2023-10-16] MEDS: ACETAMINOPHEN 500 MG TABLET 1000 MG PO ×2 (03:18→08:56)
[2023-10-16 07:05] LABS: Hemoglobin* 10.7 gm/dL (12.0-16.0)
[2023-10-16 08:10] VITALS: BP 120/81; PULSE 62; RESP 16; TEMP 36.8; O2SAT 99
[2023-10-16] MEDS: DOCUSATE SODIUM 100 MG CAPSULE PO (08:56)
--- NOTE | 2023-10-16 09:19 | P.DS_ITS ---
DS: Providers Provider Time Seen by Provider: 09:05 Date Seen: 10/16/23 Date of admission: 10/14/23 13:21 Primary care physician: Not a Local Provider Admitting Clinician: Mady Jacobs MD Attending Physician on discharge: Rochelle Muro MD Date of Discharge: 10/16/23 DS: Diagnosis Discharge Diagnosis (1) Normal spontaneous vaginal delivery: Status: Acute Exam Const: Vital Signs, click to edit/add: Vital Signs - 24 hr 10/15/23 12:08 10/15/23 17:33 10/15/23 20:30 Temperature 97.7 F 98.2 F 98.1 F Pulse Rate [Pulse Oximeter] 69 73 65 Respiratory Rate 18 20 16 Blood Pressure [Le ft Arm] 101/64 99/63 108/69 Pulse Oximetry 97 97 97 Oxygen Delivery Me thod Room Air Room Air 10/16/23 00:26 Temperature 97.8 F Pulse Rate [Pulse Oximeter] 76 Respiratory Rate 18 Blood Pressure [Le ft Arm] 106/70 Pulse Oximetry 98 Oxygen Delivery Me thod Room Air Documenting provider has reviewed patient's vital signs: yes Common normals: no apparent distress and oriented x3 General appearance: cooperative and comfortable HENMT: Common normals: normocephalic Head and scalp: normocephalic Resp: Common normals: normal respiratory effort Cardio: Common normals: regular rate and regular rhythm Rate: regular rate Rhythm: regular rhythm GI: Common normals: soft to palpation and non-tender Inspection: normal to inspection Palpation: soft Extremity: Common normals: normal to inspection and no pedal edema Neuro: Common normals: oriented x3 Psych: Common normals: affect normal OB - DS: Summary Hospital Course Hospital Course: The patient is a 23 year old G 4 now P 2021 admitted at 39 1/7 weeks gestation on 10/14/23 for labor augmentation and oligohydramnios. She had an complicated vaginal delivery. She delivered a viable male infant. She is breast and bottle feeding. the patient has done well. She complains of mild cramping pain with breast feeding as well as some mild pain at the sight of her pe riurethral laceration repair. Peripartum Data Infant delivery method: Vaginal Laceration description: Periurethral - 1st Degree complications: none [place] Infant Gender: Male Infant Discharge Plan: Home Status at Discharge Functional status at discharge: independent ambulation Time Spent with Patient Time attestation: Total time spent providing and/or coordinating discharge services: Time spent: Less than 30 minutes Discharge Plan Discharge Disposition: Home, Self-Care Date of Admission: 10/14/23 13:21 Attending Provider on Discharge: Rochelle Muro Primary Care Provider: Provider,Not a Local Condition: Stable Anticipated Discharge Date/Time: 10/16/23 09:26 Discharge Medications: New ibuprofen 600 mg Tablet 600 mg PO Q6H PRNQty: 30 0RF Continued omeprazole 20 mg capsule,delayed release(DR/EC) 40 mg PO QDAY Qty: 60 2RF Hold Instructions: PRN with DHA-Folic Acid 400-32.5 mcg-mg tablet,chewable 1 tab PO DAILY Qty: 90 4RF thiamine HCl (vitamin B1) 100 mg tablet 100 mg PO TID Qty: 90 1RF Rx Instructions: Take 3 times a day as able. Discharge Orders: Discharge Order (Routine); Ordered 10/16/23 Ordered By: Rochelle Muro Patient Education: OB Over the Counter Medication Information, OB Vaginal/Bottle Feeding, OB Vaginal/Breast Feeding Additional Instructions: Discharge instructions were reviewed with the patient including signs and symptoms of infection and home going medications Nothing vaginally for 6 weeks: no tampons or intercourse Do not drive while taking narcotic pain medication(s) Off Work or School for 8 weeks Symptoms to report to doctor: * Bleeding that saturates more than one pad per hour * Passing clots larger than the size of a golf ball * Pain not relieved by prescribed medication * Fever above 100.4 degrees Fahrenheit * A foul vaginal odor * Difficulty in emotions, mood, and functions * Thoughts of hurting yourself and/or * Painful, reddened area in your breast * Any drainage, redness, or tenderness in your IV/epidural site * Severe headache that doesn't improve after taking medications * Changes in vision, including temporary loss of vision, blurred vision, and/or light sensitivity * Upper abdominal pain (usually under ribs on the right side) * Decrease in urination or painful, frequent urinating * Chest pain * Shortness of breath * Tenderness or pain with redness and/swelling in the calf(s) of your leg Optional 2-week visit: discuss feeding concerns, review control options and screen for anxiety/depression. 6-week visit for an annual exam. consultation services are available to all mothers and babies for the first year after delivery.? To make an appointment, please call [phone]. Activity Level: Activity as Tolerated Discharge Diet: Regular Follow Up Appointments: Provider,Not a Local [Primary Care Provider] - Forms: [facility] [employer] Info Instructions DS:Data Additional Comments Additional comments: Hgb 10.7
[2023-10-16 13:53] LABS: Rapid Plasma Reagin (RPR) Non Reactive (Non Reactive)
== END 2023-10-16 11:57 | disposition home or self-care (01) | DRG 807 ==
PROVIDERS: Admitting Provider Obstetrics & Gynecology; Visit Provider Obstetrics & Gynecology
DX: O41.03X0 Oligohydramnios, third trimester, not applicable or unspecified (principal); O99.824 Streptococcus B carrier state complicating childbirth; Z3A.39 39 weeks gestation of pregnancy; O70.0 First degree perineal laceration during delivery; Z37.0 Single live birth
CPT/HCPCS: 01967; 36415; 85018; 85025; 86592; 86850; 86900; 86901; T1013; A9270; J0290; J2371; J3010; J7120

== ENCOUNTER 2023-12-02 11:33 | Outpatient (CLI) | payer MEDICAID, SELFPAY ==
--- OUTSIDE RECORDS SUMMARY | 2023-12-02 11:37 | XMS_ITS | Clinical Summary ---
Author Organization [employer] [facility] Address [place], [place] [address] Care Team Providers Care Pipe Fitter Name Role Phone Pcp, No Primary Care Provider Celi Zapata CNM Unavailable [phone] Allergies No known active allergies Medications Medication [...] , currently 04/12/2023 Round ligament pain 04/12/2023 [facility] Supervision of high-risk Overview: Gretta Von : 2000 MPP ULTRASOUND/TESTING PATIENT MPP CONSULT ON 04/12/23 Support person name: Ob/Gyn Nurse: Yes: [place] ULTRASOUND TYPE: L2 on 06/03/23 REASON FOR [...] Delivery: 10/20/23. MATERNAL 2016 19-20w IUFD (in [facility], no records available) 2017 40w (bedrest, watched for weak uterus, in [facility]) PREVIOUS ULTRASOUNDS: 06/03/23 L2 03/08/23 7w5d ECHO: REFERRING PHYSICIAN/PHONE/LAST UPDATE: Celi Be CNM [place] [phone] Primary MD approves scheduling of recommended ultrasounds/testing: Yes SPECIALISTS/CONSULTS: Include: Specialty MD Clinic Name Phone# [place] and ADDED TO PATIENT CARE TEAM Yes GENETICS: Declines/Not Done CARE COORDINATION: PERTINENT LABS: Labs reviewed? Yes Normal? Not all labs available Blood type: O Rh Positive Antibody screen: Negative Non-[facility] labs need to be entered in [employer]? Yes PERTINENT MEDS: PROCEDURES: IF FGR <10% or EFW <2000 grams: Add FGRPCOM PLAN OF CARE: Original and updated POC 06/12/22 [place] History of loss at 20 weeks - No records available, labs and pathology unavailable, but maternal report of events is consistent with placental abruption (risk of recurrence 5-10%) - Consider antiphospholipid antibody testing, TSH level in [place] - Recommend detailed anatomy scan at 19 weeks with [facility] - Growth scans q 3- 4 [...] - Recommend ekg or holter monitor in [place] - Also told her to try stopping [...] Outcome GA Total Labor Labor/2nd/3rd Weight Sex Type Anes PTL Magda A1 A5 Name Clin 2016 SAB 20w 0d Demis e Living Status Comments:IUFD, bleeding entire Delivery Location:[facility] 018 Term 39w 5d 2.49 kg (5 lb 8 oz) M Vag Livin g Pastor Complications:None Delivery Location:[facility] 023 SAB 6w0 d SPONTA NEOUS Current Summary Episode Dates Number of Fetuses Estimated Date of Delivery 04/12/2023 - Present (12/02/2023) 10/20/2023 (set by Elizabeth Painter RN on 04/12/2023 based on Ultrasound on 03/08/2023) Dating Summary Based On [facility] GA Diff Last Menstrual Period on 08/10/2022 05/17/2023 +22w2d Ultrasound on 03/08/2023 10/20/2023 Working GA:7w5d Vitals Pregravid Weight Height TWG (As of 12/02/2023) Pregrav id BMI 1.524 m (5') Date GA Fund Present FHR Mvmt BP Weight Edema Alb Glu Ket Dil/ Eff/Sta 3 12w5d Inpatient data not displayed here. See encounter summary. 3 20w1d Inpatient data not displayed here. See encounter summary. Notes Progress Notes - Hospital En counter - 06/03/2023 - GA:20w1d 06/03/2023 - 20w1d - Jennifer Carson MD Referred By: CELI BE [facility] Indications Code 20 weeks gestation of Z3A.20 2015-20wk IUFD (in [facility], no records)- maternal report sounds like placental abruption 2018- (bedrest, watched for weak uterus, in [facility]) Declined serum screening Detailed US [...] needed. Services Provided: Procedures Code DETAIL ANATOMY 69868.0 TROPLATER HELPER Progress Notes - Hospital En counter - 04/12/2023 - GA:12w5d 04/12/2023 - 12w5d - Elizabeth Hallman, RN [place] [facility] Consultation Visit Patient here for consultation due to h/o of IUFD at 19-20 weeks in [facility]. Term following that . Is currently @ 12w5d and complains of nausea and vomiting up to 6x/day. Vaginal pain so severe that it makes it hard to walk. Recent episodes of waking in the middle of the night and unable to catch her breath. Denies chest pain or palpitations. athletic instructor used for entire appointment. Assessment Histories reviewed today include: Past Medical History, Past Surgical History, Social History and Family History and Obstetric History. Refer to the corresponding sections of the history section of [facility] chart and the [facility] Navigator for details. Assessment: Patient's perception of movement: Has not felt movement yet. Normal movement discussed. heart rate observed during brief bedside ultrasound. 130-140s. Preferred delivery location: [facility] Some basic routine education done during [...] min Elizabeth Painter RN 04/12/2023 1:59 PM TROPLATER HELPER Last Filed Vital Signs Vital Sign Reading Time Taken Comments Blood Pressure 111/71 04/12/2023 2:07 PM ELECTROPLATER HELPER Pulse 72 04/12/2023 2:07 PM ELECTROPLATER HELPER Temperature 36.9 ??C (98.5 ??F) 02/25/2022 4:17 PM CD T Respiratory Rate 20 09/13/2019 3:52 PM CDT Oxygen Saturation 98% 08/12/2022 2:38 PM ELECTROPLATER HELPER Inhaled Oxygen Concentration - - Weight 70.4 kg (155 lb 3.2 oz) 04/12/2023 2:07 P M ELECTROPLATER HELPER Height 152.4 cm (5') 04/12/2023 2:07 PM ELECTROPLATER HELPER Body Mass Index 30.31 04/12/2023 2:07 PM ELECTROPLATER HELPER Plan of Treatment Health Maintenance Due Date [...] HIV-1/O/2, 4TH GENERATION Routine 06/26/2022 3:11 PM ELECTROPLATER HELPER Encounter for supervision of other normal in first trimester ANTI HCV Routine 02/25/2022 5:28 PM CDT Need for hepatitis C screening test INDUSTRIAL/ORGANIZATIONAL PSYCHOLOGIST THIN PREP PAP SCREEN IMAGED Routine 12/14/2019 9:00 AM CDT Screening for malignant neoplasm of cervix from Last 3 Months or Most Recently Relevant to Health Maintenance Results * LC HIV-1/O/2, 4TH GENERATION (06/26/2022 3:11 PM ELECTROPLATER HELPER) Pathologist [facility] HIV Scr 4th Gen Non Reactive Non Reactive 06/30/2022 12:08 PM ELECTROPLATER HELPER [facility] Comment: HIV Negative HIV-1/HIV-2 antibodies and HIV-1 p24 antigen were NOT detected. There is no laboratory evidence of HIV infection. Blood BLOOD SPECIMEN / Unknown Venipuncture / Unknown 06/26/2022 3:11 PM ELECTROPLATER HELPER 06/26/2022 3:15 PM ELECTROPLATER HELPER Narrative [facility] - 06/30/2022 12:08 PM ELECTROPLATER HELPER Performed at: ??[address] ??[id number] Hr Administrative Assistant: Sheldon Castillo MD, Phone: ??[phone] Cami Brunner MD LABORATORY [facility] [address] [place] [address] * ANTI HCV (02/25/2022 5:28 PM CDT) HEPATITIS C ANTIBODY Non-React gely Non-React gely 02/27/2022 3:09 AM CDT [facility] TRAL LABORATORY Comment:Antibodies to HCV no t detected; does not exclude the possibility of exposure to HCV. Blood BLOOD SPECIMEN / Unknown Venipuncture / Unknown 02/25/2022 5:28 PM CDT 02/25/2022 5:29 PM CDT Meron Machado MD SEND OUTS [facility] LABORATORY-CENTRAL LABORATORY [address] [place] [address], * INDUSTRIAL/ORGANIZATIONAL PSYCHOLOGIST THIN PREP PAP SCREEN IMAGED [[id number]] (12/14/2019 9:00 AM CDT) Case Report Gynecologic Cytology Report ? Case: [id number] ? Authorizing Provider: ??Meron Machado MD ? Collected: ? 12/14/2019 0900 ? Ordering Location: ? [facility] ?? Received: ?12/14/2019 0921 ? Clinic ? First Screen: ?Galindo Mccall ? Rescreen: ?Kelly Hansen ? Specimen: ?INDUSTRIAL/ORGANIZATIONAL PSYCHOLOGIST ThinPrep Vial Screening, Cervical ? 12/20/2019 8:10 AM CDT [facility] LABOR[facility]-C ENTRAL LABORATORY INTERPRETATION/ RESULT NEGATIVE FOR INTRAEPITHELIAL LESION OR MALIGNANCY (NIL) (none) 12/20/2019 8:10 AM CDT [facility] IMEN ADEQUACY Satisfactory for evaluation Endocervical component present 12/20/2019 8:10 AM CDT [facility] ENTRAL LABORATORY HPV REQUEST HPV if ASCUS 12/20/2019 8:10 AM CDT [facility] Date of LMP 09/14/2019 12/20/2019 8:10 AM CDT [facility] LABOR[facility]-C ENTRAL LABORATORY Last Pap Date n/a 12/20/2019 8:10 AM CDT [facility] LABOR[facility] ENTRAL LABORATORY Last Pap Result First Pap/Unknown 8:10 AM CDT [facility] ENTRAL LABORATORY Abnormal Pap or Jefferson Bx in last 5 years No 12/20/2019 8:10 AM CDT [facility] LAB[facility]-C ENTRAL LABORATORY Menstrual Status Irregular Periods 12/20/2019 8:10 AM CDT [facility] [place] Bx Done Today No 12/20/2019 8:10 AM CDT [facility] Additional Information None given 12/20/2019 8:10 AM CDT [facility] ENTRAL LABORATORY Comment: Cytology is screened at [facility] trakkies [facility], Central Laboratory - [address], [place] [address] and [facility] Laboratory - [address] [place] [address] and [facility] Laboratory - [address] [place] [address] Interpreted at [facility], Central Laboratory - [address], [place] [address] Automated Review Successful 12/20/2019 8:10 AM CDT [facility] LABOR[facility]- ENTRAL LABORATORY Comment:Specimen processed s uccessfully by automated television specialist device, ThinPrep Imaging System, [employer] Note The pap test is a [...] 8:10 AM CDT [facility] LABORAT[facility]- ENTRAL LABORATORY Other (Cervical) Non-Blood / Unknown 12/14/2019 9:00 AM CDT 12/14/2019 9:21 AM CDT Meron Machado MD PATHOLOGY/[facility] [address] [place] [address], [place] from Last 3 Months or Most Recently Relevant to Health Maintenance Care Teams Pipe Fitter Relationship Specialty Start Date End Date Pcp, No . PCP - General 06/19/19 Celi Be CNM [address] [place] [address] Referring Provider Certified Nurse Meteorological Engineer 03/10/23
== END 2023-12-02 11:34 | disposition home or self-care (01) ==
PROVIDERS: Visit Provider Obstetrics & Gynecology
DX: Z39.2 Encounter for routine postpartum follow-up (principal); Z12.4 Encounter for screening for malignant neoplasm of cervix; R10.2 Pelvic and perineal pain; N89.8 Other specified noninflammatory disorders of vagina
CPT/HCPCS: 87086; 87186

== ENCOUNTER 2024-07-25 14:29 | Outpatient (CLI) | payer MEDICAID, SELFPAY | END 2024-07-25 14:30 | disposition home or self-care (01) | LOC: NFLDREF 07-29 04:01 | PROVIDERS: Visit Provider Physician Assistant | DX: R39.9 Unspecified symptoms and signs involving the genitourinary system (principal) | CPT/HCPCS: 87086 ==